=== PATIENT | male | born 1935 | race Caucasian/White ===

== ENCOUNTER 2017-06-14 19:58 | Inpatient (IN) ==
[2017-06-14 20:11] LABS: Basophils % 0.1 % (0.1-2.0); Eosinophils # 0.2 K/mm3 (0.0-0.4); Eosinophils % 1.9 % (0.1-12.0); Hematocrit 40.6 % (42.0-52.0); Hemoglobin 13.4 g/dL (14.1-18.0); Lymphocytes # 0.4 K/mm3 (0.7-4.5); Lymphocytes % 3.8 K/mm3 (10-50); Mean Corpuscular HGB Conc 33.1 g/dL (31.8-35.4); Mean Corpuscular Hemoglobin 30.7 pg (27.0-31.2); Mean Corpuscular Volume 92.8 fl (80-94); Mean Platelet Volume 7.9 fl (7.4-10.4); Monocytes # 0.2 K/mm3 (0.1-1.0); Monocytes % 2.1 % (1.7-9.3); Neutrophils # 9.5 K/mm3 (1.8-7.8); Neutrophils % 92.1 % (37.0-80.0); Platelet Count 154 K/mm3 (142-424); Red Blood Count 4.38 M/mm3 (4.60-6.20); Red Cell Distribution Width 14.4 % (11.5-17.5); White Blood Count 10.3 K/mm3 (4.8-10.8)
[2017-06-14 20:18] LABS: Activated Partial Thrombo Time 27.3 seconds (23.6-34.0); INR 1.02 (0.9-1.1)
[2017-06-14 20:25] LABS: Lymphocytes % 3 % (10-50); Monocytes % 2 % (2-9); Neutrophils % 87 % (42-76); Total Cells Counted 100
[2017-06-14 20:26] LABS: RBC Morphology Normal; Rouleaux 1+
[2017-06-14 20:40] LABS: Albumin Level 3.3 gm/dL (3.4-5.0); Albumin/Globulin Ratio 0.8 (1.1-1.8); Anion Gap 14.5 mEq/L (5-15); Bilirubin,Total 0.6 mg/dL (0.2-1.0); Globulin 4.1 gm/dl (1.3-3.2); Potassium 3.5 mmoL/L (3.5-5.1); Total Protein,Serum 7.4 gm/dL (6.4-8.2)
--- NOTE | 2017-06-14 21:14 | Emergency Department Note ---
ED Disposition Clinical Impression: Acute delirium, Renal insufficiency UTI (urinary tract infection) Qualifiers: Urinary tract infection type: site unspecified Hematuria presence: without hematuria Qualified Code(s): N39.0 - Urinary tract infection, site not specified Disposition: Admitted As Inpatient Condition on Discharge: Good Referrals: Viktoria London APRN [Primary Care Provider] - - Critical Care Critical Care Time: No Attestation: On 06/14/17, the high probability of a clinically significant, sudden or life threatening deterioration of the following system(s) required my full and direct attention, intervention and personal management. The time I documented below is in addition to time spent performing reported procedures but includes the following listed in this critical care notation. Medical Decision Making - Medical Records Medical records reviewed: Yes: I reviewed the patient's medical records. Vital Signs: 06/14/17 20:05 Temperature 103.9 F H Temperature Source Rectal Pulse Rate [Right Radial] 147 H Respiratory Rate 22 Blood Pressure [Right Arm] 120/80 Blood Pressure Mean [Right Arm] 93 Blood Pressure Source [Right Arm] Automatic Cuff Blood Pressure Position [Right Arm] Supine 02 Sat by Pulse Oximetry 94 L Oxygen Delivery Method Room Air - Lab Data Lab results reviewed: Yes: I reviewed the patient's lab results. Lab Results 06/14/17 20:00: WBC 10.3, RBC 4.38 L, Hgb 13.4 L, Hct 40.6 L, MCV 92.8, MCH 30.7 , MCHC 33.1, RDW 14.4, Plt Count 154, MPV 7.9, Neut % (Auto) 92.1 H, Lymph % ( Auto) 3.8 L, [place] % (Auto) 2.1, Eos % (Auto) 1.9, Baso % (Auto) 0.1, Neut # ( Auto) 9.5 H, Lymph # (Auto) 0.4 L, [place] # (Auto) 0.2, Eos # (Auto) 0.2, Baso # ( Auto) 0.0, Total Counted 100, Neutrophils % (Manual) 87 H, Band Neutrophils % 8.0, Lymphocytes % (Manual) 3 L, Monocytes % (Manual) 2, Platelet Estimate Normal, RBC Morphology Normal, Rouleaux 1+ 06/14/17 20:00: PT 11.0, INR 1.02, APTT 27.3 06/14/17 20:00: Sodium 136, Potassium 3.5, Chloride 101, Carbon Dioxide 24, Anion Gap 14.5, BUN 21 H, Creatinine 1.52 H, Estimated Creat Clear 43, Estimated GFR 44 L, Est GFR ( Amer) 54 L, Glucose 99, Calcium 9.0, Total Bilirubin 0.6, AST 16, ALT 18, Alkaline Phosphatase 73, Total Creatine Kinase 181, CK-MB (CK-2) 0.7, CK-MB (CK-2) Rel Index 0.4, Troponin I 0.05, Total Protein 7.4, Albumin 3.3 L, Globulin 4.1 H, Albumin/Globulin Ratio 0.8 L 06/14/17 20:00: B-Natriuretic Peptide 355 H 06/14/17 20:17: POC Glucose 92 06/14/17 20:25: Lactic Acid 2.0 06/14/17 20:25: Influenza Type A Ag Negative, Influenza Type B Ag Negative 06/14/17 21:45: Urine Color Yellow, Urine Appearance Cloudy, Urine pH 6.0, Ur Specific [place] >= 1.030, Urine Protein 3+, Urine Glucose (UA) Negative, Urine Ketones Trace, Urine Blood 3+, Urine Nitrate Positive, Urine Bilirubin Negative , Urine Urobilinogen 1.0, Ur Leukocyte Esterase Trace, Urine RBC 20-50, Urine WBC 50-100 Result diagrams: 06/14/17 20:00 06/14/17 20:00 Orders (Tests/Meds): ED MEDICATIONS Generic Name Dose Route Start Last Admin Trade Name Freq PRN Reason Stop Dose Admin Ceftriaxone Sodium 1 gm/ 50 mls @ 100 mls/hr 06/14/17 22:30 Sodium Chloride IV 06/28/17 22:29 Q24H TRI Discontinued Medications Generic Name Dose Route Start Last Admin Trade Name Freq PRN Reason Stop Dose Admin Acetaminophen 650 mg 06/14/17 20:27 06/14/17 20:30 Acetaminophen 325mg Tab PO 06/14/17 20:28 650 mg ONCE ONE Administration ORDERS Category Date Time Status Blood Culture Stat Micro 06/14/17 20:25 Received Urine Culture Stat Micro 06/14/17 21:45 Received - Radiology Data #1 Image(s): Chest Image Reviewed: Yes I reviewed the patient's radiology image Preliminary Findings: Normal/NAD - CT Data CT Scan: Head Time Received: 22:[address] Reviewed: Yes: I have viewed the radiologist's interpretation Preliminary Findings: Normal/NAD - [place] Inquiry Pt receiving controlled substance: No Altered Mental Status HPI - General Chief Complaint: Neuro Symptoms/Deficit Stated Complaint: CVA Time Seen by Provider: 06/14/17 21:13 Mode of Arrival: Wheelchair Source of Information: Patient, Relative, Medical Record Limitations: No Limitations Description of Symptoms (Recalled from ER Triage Doc. by RN): Family reports weakness, slurred speech and confusion. - History of Present Illness HPI narrative: pt with acute onset of change in mental status with no trauma MD complaint: altered mental status Onset (ago): day(s) Timing confirmed by: family member Severity: moderate Consistency of symptoms: waxing and waning Context: recent fever Associated symptoms: difficulty walking - Related Data Home Medications Medication Instructions Recorded Confirmed aspirin 325 mg tablet 325 mg PO QDAY 05/28/17 06/14/17 Cilostazol [Pletal 100mg tablet] 100 mg PO BID 06/14/17 06/14/17 Lisinopril [Prinivil 5mg Tablet] 5 mg PO QDAY 06/14/17 06/14/17 Pravastatin Sodium [Pravachol] 40 mg PO QDAY 06/14/17 06/14/17 Allergies Allergy/AdvReac Type Severity Reaction Status Date / Time No Known Allergies Allergy Verified 06/14/17 20:13 [facility] History I have reviewed the patient's past medical history: Yes Medical History: Reports:: Hyperlipidemia Other Surgeries: Yes: Other (Vasectomy) Amputation: No Fractures: No - *Social History Smoking Status: Current every day smoker Tobacco Type: cigarettes # Packs/Day (cigarettes): 2 Alcohol Intake: never Alcohol Intake Frequency:: 3 or more drinks per day Substance Use Type: denies use Occupational Status: retired Housing: house Household Members: spouse - Psychiatric History Expresses thoughts of harming self/others: None Suicide Plan Description: No Plan *Family Hx:: Heart Attack ROS Obtained: Yes All systems reviewed & no additional complaints - Constitutional Constitutional: Reports fever(s) - Eyes Eyes: Denies change in vision - ENT Ears, Nose, Mouth, and Throat: Denies sore throat - Cardiovascular Cardiovascular: Denies chest pain - Respiratory Respiratory: No chest congestion, No cough - Gastrointestinal Gastrointestingal: Denies: abdominal pain, vomiting - Genitourinary Male Genitourinary: Denies hematuria - Musculoskeletal Musculoskeletal: Denies joint pain - Neurologic Neurologic: Reports as per HPI, Reports confusion, Denies headache(s), Denies seizure-like activity Physical Exam - General General appearance: alert, in no apparent distress - Head Head exam: normocephalic - Eye Eye exam: Present: PERRL, EOMI. Absent: scleral icterus - ENT ENT exam: Present: mucous membranes dry - Neck Neck exam: Present: trachea midline - Respiratory Respiratory exam: Present: normal lung sounds bilaterally. Absent: respiratory distress - Cardiovascular Cardiovascular exam: Present: regular rate, systolic murmur, +S4 - Abdominal Exam Abdominal exam: Present: soft - Extremities Exam Extremities exam: Absent: calf tenderness - Neurological Exam Neurological exam: Present: CN II-XII intact. Absent: reflexes normal - Skin Skin exam: Absent: rash
[2017-06-14 21:55] LABS: Microscopic, Urine URINE MICROSCOPIC (MICROSCOPIC)
[2017-06-14 21:57] LABS: Appearance,Urine CLOUDY (Clear); Blood, Urine 3+ (Negative); Color,Urine YELLOW (Yellow); Glucose,Urine (UA) Negative (Negative); Ketones,Urine TRACE (Negative); Leukocyte Esterase,Urine TRACE (Negative); Protein,Urine 3+ (Negative); Specific Gravity, Urine >= 1.030 (1.005-1.030)
[2017-06-14 22:00] LABS: Bilirubin,Urine Negative (Negative)
[2017-06-14 22:01] LABS: RBC,Urine 20-50 #/hpf (0-3); WBC,Urine 50-100 #/hpf (0-3)
--- NOTE | 2017-06-15 08:35 | Pharmacy Consult Notes ---
[facility] Pharmacy VTE Monitoring - Patient Demographics Admission date: 06/14/17 Report Date: 06/15/17 Time: 08:35 Allergies/Adverse Reactions: Patient Allergies No Known Allergies Allergy (Verified 06/14/17 20:13) Height: 1.75 m Weight: 68.039 kg Patient Problems: Current Active Problems UTI (urinary tract infection) (Acute) Acute delirium (Acute) Renal insufficiency (Acute) - VTE Risk Labs: VTE Related Lab Results Hgb 13.4 g/dL (14.1-18.0) L 06/14/17 20:00 Hct 40.6 % (42.0-52.0) L 06/14/17 20:00 Plt Count 154 K/mm3 (142-424) 06/14/17 20:00 PT 11.0 seconds (9.4-11.8) 06/14/17 20:00 INR 1.02 (0.9-1.1) 06/14/17 20:00 APTT 27.3 seconds (23.6-34.0) 06/14/17 20:00 BUN 21 mg/dL (7-18) H 06/14/17 20:00 Creatinine 1.52 mg/dL (0.70-1.30) H 06/14/17 20:00 Estimated Creat Clear 43 mL/min (0-300) 06/14/17 20:00 VTE Score: 3 VTE Risk Level: Low Risk - Prophylaxis VTE Prophylaxis Ordered?: Yes Types of VTE Prophylaxis: TEDS Knee High Location of Applied Device: Bilateral Lower Extremeties - VTE Diagnosis Confirmed Treatment or plan recommended: Continue Current Treatment
--- NOTE | 2017-06-15 09:16 | History & Physical Report ---
*Admission Date: 06/14/17 *Chief complaint: change mental status *History of present illness: pt was seen in the ed with acute change in mental status and had fever and abn u /a and was admitted for ivf and abx [facility] History I have reviewed the patient's past medical history: Yes Medical History: Reports:: Hyperlipidemia, Hypertension Denies:: Diabetes Mellitus Type 1, Diabetes Mellitus Type 2 Other Medical History: Reports: Cataracts, Sinus Problems Other Surgeries: Yes: EGD, Other (Vasectomy) Amputation: No Fractures: No - *Social History Educational Level: Attended High School Smoking Status: Current every day smoker Tobacco Type: cigarettes # Packs/Day (cigarettes): 2 Alcohol Intake: current Alcohol Intake Frequency:: other Substance Use Type: denies use Occupational Status: retired Housing: house Household Members: spouse - Psychiatric History Expresses thoughts of harming self/others: None Suicide Plan Description: No Plan *Family Hx:: Diabetes, Heart Attack, Hypertension, Stroke Review of Systems - Review of Systems Review of systems:: pertinent systems reviewed and negative unless documented below - Constitutional Reports fever(s) - Eyes Denies change in vision - ENT Denies sore throat - *Cardiovascular Denies chest pain at rest - *Respiratory Denies cough - *Gastrointestinal Denies abdominal pain - *Genitourinary Denies blood in urine - *Musculoskeletal Denies joint pain - Integumentary/Breasts Denies rash - *Neurologic Reports confusion, Denies headache(s), Denies seizure-like activity - Psychiatric Reports confusion Meds Home Medications Medication Instructions Recorded Confirmed Type aspirin 325 mg tablet 325 mg PO QDAY 05/28/17 06/14/17 History Cilostazol [Pletal 100mg tablet] 100 mg PO BID 06/14/17 06/14/17 History Lisinopril [Prinivil 5mg Tablet] 5 mg PO QDAY 06/14/17 06/14/17 History Pravastatin Sodium [Pravachol] 40 mg PO QDAY 06/14/17 06/14/17 History Allergies Allergy/AdvReac Type Severity Reaction Status Date / Time No Known Allergies Allergy Verified 06/14/17 20:13 Exam Vital signs and Labs for Last 24 Hours: Temp Pulse Resp BP Pulse Ox 99.0 F 102 H 18 00/00 97 06/15/17 06:53 06/15/17 07:20 06/15/17 06:53 02/12/18 06:53 06/15/17 07:20 I & O for Last 24 hours: Intake & Output 06/12/17 06/13/17 06/14/17 06/15/17 11:59 11:59 11:59 11:59 Weight 150 lb - Constitutional no acute distress - *Routine HEENT Exam Head: Present: normocephalic Eye: Present: EOMI, PERRL ENT: Present: mucous membranes dry - *Routine Neck Exam Present: supple - *Routine Respiratory Exam Present: decreased breath sounds - *Routine Cardiovascular Exam Present: RRR, murmur - *Routine Abdominal Exam Present: soft - *Routine Extremities Exam Present: full ROM - *Routine Skin Exam Present: intact - *Routine Neurological Exam Present: alert, CN II-XII intact, altered mental status - Routine Psychiatric Exam Present: unable to assess Assessment and Plan (1) UTI (urinary tract infection) Current visit: Yes Status: Acute Qualifiers: Urinary tract infection type: site unspecified Hematuria presence: without hematuria Qualified Code(s): N39.0 - Urinary tract infection, site not specified Category: Medical Code(s): N39.0 - Urinary tract infection, site not specified (2) Acute delirium Current visit: Yes Status: Acute Category: Medical Code(s): R41.0 - Disorientation, unspecified (3) Renal insufficiency Current visit: Yes Status: Acute Category: Medical Code(s): N28.9 - Disorder of kidney and ureter, unspecified
[2017-06-16 06:01] LABS: Basophils % 0.1 % (0.1-2.0); Eosinophils # 0.1 K/mm3 (0.0-0.4); Eosinophils % 1.3 % (0.1-12.0); Hematocrit 34.4 % (42.0-52.0); Hemoglobin 11.4 g/dL (14.1-18.0); Lymphocytes % 13.6 K/mm3 (10-50); Mean Corpuscular HGB Conc 33.1 g/dL (31.8-35.4); Mean Corpuscular Hemoglobin 31.3 pg (27.0-31.2); Mean Corpuscular Volume 94.4 fl (80-94); Mean Platelet Volume 7.7 fl (7.4-10.4); Monocytes # 0.4 K/mm3 (0.1-1.0); Monocytes % 5.5 % (1.7-9.3); Neutrophils # 5.7 K/mm3 (1.8-7.8); Neutrophils % 79.4 % (37.0-80.0); Platelet Count 113 K/mm3 (142-424); Red Blood Count 3.64 M/mm3 (4.60-6.20); Red Cell Distribution Width 14.3 % (11.5-17.5); White Blood Count 7.1 K/mm3 (4.8-10.8)
[2017-06-16 06:08] LABS: Anion Gap 13.5 mEq/L (5-15); Potassium 3.5 mmoL/L (3.5-5.1)
--- NOTE | 2017-06-16 09:18 | Progress Note ---
Internal Medicine - PN: Subj *Date: 06/16/17 *Time: 09:16 Interval history: doing better and on card drip Exam Vital signs and Labs for Last 24 Hours: Temp Pulse Resp BP Pulse Ox 98.3 F 76 22 121/71 96 06/16/17 04:14 06/16/17 06:15 06/16/17 06:15 06/16/17 06:15 06/16/17 06:15 Laboratory Results - last 24 hr 06/16/17 05:30: WBC 7.1 D, RBC 3.64 L, Hgb 11.4 L, Hct 34.4 L, MCV 94.4 H, MCH 31.3 H, MCHC 33.1, RDW 14.3, Plt Count 113 L D, MPV 7.7, Neut % (Auto) 79.4, Lymph % (Auto) 13.6, [place] % (Auto) 5.5, Eos % (Auto) 1.3, Baso % (Auto) 0.1, Neut # (Auto) 5.7, Lymph # (Auto) 1.0, [place] # (Auto) 0.4, Eos # (Auto) 0.1, Baso # (Auto) 0.0 06/16/17 05:30: Sodium 139, Potassium 3.5, Chloride 104, Carbon Dioxide 25, Anion Gap 13.5, BUN 20 H, Creatinine 1.21 D, Estimated Creat Clear 46, Estimated GFR 58 L, Est GFR ( Amer) 70 D, Glucose 118 H I & O for Last 24 hours: Intake & Output 06/13/17 06/14/17 06/15/17 06/16/17 11:59 11:59 11:59 11:59 Intake Total 1892 / 1892 Output Total 600 / 600 Balance 1292 / 1292 Weight 150 lb 150 lb - Constitutional no acute distress - *Routine HEENT Exam Head: Present: normocephalic Eye: Present: EOMI, PERRL ENT: Present: mucous membranes dry - *Routine Neck Exam Present: supple - *Routine Respiratory Exam Present: CTA bilaterally - *Routine Cardiovascular Exam Present: murmur, irregular rhythm - *Routine Abdominal Exam Present: soft - *Routine Extremities Exam Absent: calf tenderness - *Routine Skin Exam Present: intact - *Routine Neurological Exam Present: alert, CN II-XII intact - Routine Psychiatric Exam Present: normal affect Assessment and Plan (1) UTI (urinary tract infection) Current visit: Yes Status: Acute Qualifiers: Urinary tract infection type: site unspecified Hematuria presence: without hematuria Qualified Code(s): N39.0 - Urinary tract infection, site not specified Category: Medical Code(s): N39.0 - Urinary tract infection, site not specified (2) Acute delirium Current visit: Yes Status: Acute Category: Medical Code(s): R41.0 - Disorientation, unspecified (3) Renal insufficiency Current visit: Yes Status: Acute Category: Medical Code(s): N28.9 - Disorder of kidney and ureter, unspecified
[2017-06-16 10:00] LABS: T4 (Thyroxine) 6.9 ug/dl (4.7-13.3); Thyroid Stimulating Hormone 2.61 uIU/ml (0.358-3.740)
--- NOTE | 2017-06-17 06:59 | Cardiology Report ---
PROCEDURE: 2-D M-mode and color Doppler study INDICATIONS FOR THE TEST: Chest pain COPDX Heart Murmur Tobacco SmokingX Palpitations Fatigue Syncope Edema HypertensionXDiabetes Mellitus Rheumatic Fever SOB DOEXObesity Hyperlipidemia Family History HD Additional History PATIENT INFORMATION HEIGHT: 69 WEIGHT:150 GENDER: Male B/P:134/79 2-D/M-MODE INTERPRETATION: 2-D MEASUREMENTS OBSERVED VALUES IN CMS Right Ventricular Dimension (RVDd) 1.7 Interventricular Septum (Thickness)(IVsd) 1.0 Left Ventricular Internal Dimensions(LVIDd) 5.5 Left Ventricular Posterior Wall (Thickness)(LVPWd) .9 Aortic Root 3.0 Aortic Cusp Separation Left Atrial Dimensions (LAD) 3.6 2D 1. Left atrium is mildly enlarged, left ventricle is normal size, there is mild qualitative concentric left ventricular hypertrophy, visually estimated ejection fraction 55% with no obvious regional wall motion abnormality. 2. The right atrium and right ventricle are mildly enlarged with normal contractility. 3. The aortic valve is minimally thickened and fibrosed. 4. The mitral and tricuspid valve leaflets are thickened. 5. The valve is poorly visualized. 6. No significant pericardial effusion noted. DOPPLER INTERROGATION: Doppler interrogation of the aortic, mitral and tricuspid valvular presence of mild mitral and tricuspid regurgitation, calculated right ventricular systolic pressure is 33 mmHg, diastolic parameters are inconclusive. CONCLUSION: 1. Mildly enlarged left atrium, normal left ventricular size, mild concentric left ventricular hypertrophy, visually estimated ejection fraction 55% with no obvious regional wall motion abnormality, diastolic parameters are inconclusive. 2. Mild mitral and tricuspid regurgitation, calculated right ventricular systolic pressure is 33 mmHg 3. No significant pericardial effusion noted.
--- NOTE | 2017-06-17 10:21 | Discharge Summary ---
General - General Admission date: 06/14/17 Discharge date: 06/17/17 HPI HPI: pt was seen in the ed with acute change in mental status and had fever and abn u /a and was admitted for ivf and abx Objective Vital signs: Temp Pulse Resp BP Pulse Ox 98.8 F 69 22 142/65 96 06/17/17 07:49 06/17/17 07:49 06/17/17 07:49 06/17/17 07:49 06/17/17 07:49 no acute distress - *Routine HEENT Exam Head: Present: normocephalic Eye: Present: EOMI, PERRL ENT: Present: mucous membranes dry - *Routine Neck Exam Absent: JVD - *Routine Respiratory Exam Present: rhonchi. Absent: respiratory distress - *Routine Cardiovascular Exam Present: murmur, S4, irregular rhythm - *Routine Abdominal Exam Present: soft - *Routine Extremities Exam Absent: calf tenderness - *Routine Skin Exam Present: intact. Absent: rash - *Routine Neurological Exam Present: oriented X3, CN II-XII intact has chronic changes to hands - Routine Psychiatric Exam Absent: good judgment Hospital Course Hospital Course: pt did well with ivf and abx and organism was ided and had irreg ht rate in hospital- seen by [id number] white male with history of tobacco use, COPD, hypertension and hyperlipidemia was admitted for urinary tract infection. During his hospital stay he has had recurrent episodes of tachyarrhythmias with the concern that he is having multifocal atrial tachycardia versus atrial fibrillation. Patient is on a Cardizem drip at 5 mL's per hour and is controlled rate. Telemetry strips reveal what appear to be wandering atrial pacemaker and multifocal atrial tachycardia. Review of EKGs with Dr. Hood shows what appears to be multifocal atrial tachycardia. Patient denies any chest pain, pressure or tightness. He denies any history of myocardial infarction. 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 He does take an aspirin daily. Radiology consulted for evaluation and recommendations. Patient admits to having problems with his balance and falling. Does ambulate with a walker. pears the patient has multifocal atrial tachycardia/wandering atrial pacemaker. Will convert the Cardizem drip to Cardizem p.o. today but would prefer to use bisoprolol 5 mg daily for control once patient's respiratory wheezing has improved. Echocardiogram shows preserved ejection fraction without significant valve disease. 2. No further cardiac workup at this time. 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 Status: Acute Discharge Plan - Patient Discharge Instructions ACTIVITY: Continue current activity DIET: continue same diet - Follow up Plan Disposition: Home, Self-Skilled Nursing Medications: Home Medications Medication Instructions Recorded Confirmed Type aspirin 325 mg tablet 325 mg PO DAILY 05/28/17 06/15/17 History Cilostazol [Pletal 100mg tablet] 100 mg PO BID 06/14/17 06/14/17 History Lisinopril [Prinivil 5mg Tablet] 5 mg PO DAILY 06/14/17 06/15/17 History Pravastatin Sodium [Pravachol] 40 mg PO DAILY 06/14/17 06/15/17 History Prescriptions/Medication Reconciliation: New cephALEXin [Keflex 500mg Cap] 500 mg PO TID #30 cap Nicotine [Nicoderm 21mg/24hr patch] 21 mg TD DAILYP PRN #30 patch.td24 PRN Reason: Nicotine Cravings Bisoprolol Fumarate [Zebeta 5mg tablet] 0 mg PO DAILY #30 tab Continue aspirin 325 mg tablet 325 mg PO DAILY Cilostazol [Pletal 100mg tablet] 100 mg PO BID Pravastatin Sodium [Pravachol] 40 mg PO DAILY Lisinopril [Prinivil 5mg Tablet] 5 mg PO DAILY
--- NOTE | 2017-07-16 09:48 | Consult Report ---
History of Present Illness Consult date: 06/16/17 Requesting physician: aLz Franz Chief complaint: Consulted for evaluation of tachycardia History of present illness: 81-year-old white male with history of tobacco use, COPD, hypertension and hyperlipidemia was admitted for urinary tract infection. During his hospital stay he has had recurrent episodes of tachyarrhythmias with the concern that he is having multifocal atrial tachycardia versus atrial fibrillation. Patient is on a Cardizem drip at 5 mL's per hour and is controlled rate. Telemetry strips reveal what appear to be wandering atrial pacemaker and multifocal atrial tachycardia. Review of EKGs with Dr. Hood shows what appears to be multifocal atrial tachycardia. Patient denies any chest pain, pressure or tightness. He denies any history of myocardial infarction. 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 He does take an aspirin daily. Radiology consulted for evaluation and recommendations. Patient admits to having problems with his balance and falling. Does ambulate with a walker. [facility] History Medical History: Reports:: Chronic Obstructive Pulmonary Disease (COPD), Hyperlipidemia, Hypertension Denies:: Diabetes Mellitus Type 1, Diabetes Mellitus Type 2 Other Medical History: Reports: Cataracts, Sinus Problems Other Surgeries: Yes: EGD, Other (Vasectomy) Amputation: No Fractures: No - *Social History Educational Level: Attended High School Smoking Status: Current every day smoker Tobacco Type: cigarettes # Packs/Day (cigarettes): 2 Alcohol Intake: current Alcohol Intake Frequency:: other Substance Use Type: denies use Occupational Status: retired Housing: house Household Members: spouse - Psychiatric History Expresses thoughts of harming self/others: None Suicide Plan Description: No Plan *Family Hx:: Diabetes, Heart Attack, Hypertension, Stroke Meds Home Medications Medication Instructions Recorded Confirmed Type aspirin 325 mg tablet 325 mg PO DAILY 05/28/17 06/15/17 History Cilostazol [Pletal 100mg tablet] 100 mg PO BID 06/14/17 06/14/17 History Lisinopril [Prinivil 5mg Tablet] 5 mg PO DAILY 06/14/17 06/15/17 History Pravastatin Sodium [Pravachol] 40 mg PO DAILY 06/14/17 06/15/17 History Allergies Allergy/AdvReac Type Severity Reaction Status Date / Time No Known Allergies Allergy Verified 06/14/17 20:13 Review of Systems - *Cardiovascular Reports fast heart rate - *Respiratory Reports cough, Reports shortness of breath, Reports shortness of breath with activity - *Neurologic Reports confusion, Denies headache(s), Denies seizure-like activity Exam Vital signs and Labs for Last 24 Hours: Temp Pulse Resp BP Pulse Ox 98.4 F 73 20 132/69 93 L 06/16/17 08:00 06/16/17 08:45 06/16/17 08:00 06/16/17 08:00 06/16/17 08:45 Laboratory Results - last 24 hr 06/16/17 05:30: WBC 7.1 D, RBC 3.64 L, Hgb 11.4 L, Hct 34.4 L, MCV 94.4 H, MCH 31.3 H, MCHC 33.1, RDW 14.3, Plt Count 113 L D, MPV 7.7, Neut % (Auto) 79.4, Lymph % (Auto) 13.6, [place] % (Auto) 5.5, Eos % (Auto) 1.3, Baso % (Auto) 0.1, Neut # (Auto) 5.7, Lymph # (Auto) 1.0, [place] # (Auto) 0.4, Eos # (Auto) 0.1, Baso # (Auto) 0.0 06/16/17 05:30: Sodium 139, Potassium 3.5, Chloride 104, Carbon Dioxide 25, Anion Gap 13.5, BUN 20 H, Creatinine 1.21 D, Estimated Creat Clear 46, Estimated GFR 58 L, Est GFR ( Amer) 70 D, Glucose 118 H 06/16/17 05:30: TSH 2.61, Thyroxine (T4) 6.9 I & O for Last 24 hours: Intake & Output 06/13/17 06/14/17 06/15/17 06/16/17 11:59 11:59 11:59 11:59 Intake Total 1892 / 1892 Output Total 600 / 600 Balance 1292 / 1292 Weight 150 lb 150 lb - *Routine Neck Exam Absent: JVD, carotid bruit - *Routine Respiratory Exam Present: rhonchi, wheezes - *Routine Cardiovascular Exam Present: RRR. Absent: murmur, gallop - *Routine Extremities Exam Absent: edema - *Routine Neurological Exam Present: moving all extremities Assessment and Plan (1) UTI (urinary tract infection) Current visit: Yes Status: Acute Qualifiers: Urinary tract infection type: site unspecified Hematuria presence: without hematuria Qualified Code(s): N39.0 - Urinary tract infection, site not specified Category: Medical Code(s): N39.0 - Urinary tract infection, site not specified (2) Acute delirium Current visit: Yes Status: Acute Category: Medical Code(s): R41.0 - Disorientation, unspecified (3) Renal insufficiency Current visit: Yes Status: Acute Category: Medical Code(s): N28.9 - Disorder of kidney and ureter, unspecified (4) Wandering atrial pacemaker Current visit: Yes Status: Acute Category: Medical Code(s): I49.8 - Other specified cardiac arrhythmias (5) 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 Appears the patient has multifocal atrial tachycardia/wandering atrial pacemaker. Will convert the Cardizem drip to Cardizem p.o. today but would prefer to use bisoprolol 5 mg daily for control once patient's respiratory wheezing has improved. Echocardiogram shows preserved ejection fraction without significant valve disease. 2. No further cardiac workup at this time.
== END 2017-06-17 11:25 | disposition home or self-care (01) ==
LOC: ICU 19:58 → ER 19:58 → OBSVTOIN 06-15 06:50 → ICU 06-15 06:53 → 2ND 06-16 16:02
PROVIDERS: ADMIT Emergency Medicine; ATTEND Emergency Medicine

== ENCOUNTER → 2018-09-03 16:36 | Outpatient (CLI) | payer MEDICARE, SELFPAY ==
[2018-09-03 17:07] LABS: Basophils % 0.3 % (0.1-2.0); Eosinophils # 0.1 K/mm3 (0.0-0.4); Eosinophils % 1.5 % (0.1-12.0); Hematocrit 43.6 % (42.0-52.0); Hemoglobin 14.6 g/dL (14.1-18.0); Lymphocytes # 1.6 K/mm3 (0.7-4.5); Lymphocytes % 29.6 % (10-50); Mean Corpuscular HGB Conc 33.5 g/dL (31.8-35.4); Mean Corpuscular Hemoglobin 31.2 pg (27.0-31.2); Mean Corpuscular Volume 93.2 fl (80-94); Monocytes # 0.3 K/mm3 (0.1-1.0); Neutrophils # 3.4 K/mm3 (1.8-7.8); Neutrophils % 62.5 % (37.0-80.0); Platelet Count 169 K/mm3 (142-424); Red Blood Count 4.68 M/mm3 (4.60-6.20); Red Cell Distribution Width 14.3 % (11.5-17.5); White Blood Count 5.5 K/mm3 (4.8-10.8)
[2018-09-03 18:23] LABS: Alanine Aminotransferase 16 U/L (12-78); Albumin Level 4.1 gm/dL (3.4-5.0); Alkaline Phosphatase 84 U/L (46-116); Anion Gap 11.4 mEq/L (5-15); Aspartate Amino Transferase 9 U/L (15-37); Bilirubin,Total 0.5 mg/dL (0.2-1.0); Blood Urea Nitrogen 19 mg/dL (7-18); Calcium 9.4 mg/dL (8.5-10.1); Carbon Dioxide 29 mmol/L (21.0-32.0); Chloride 102 mmol/L (98-107); Chol/HDL Ratio 3.5 (1-3.5); Cholesterol 169 mg/dL (140-200); Creatinine,Serum 1.12 mg/dL (0.70-1.30); Estimated Glomerular Filt Rate 63 ml/min (>60); Free T4 (Free Thyroxine) 0.98 ng/dl (0.76-1.46); GFR (African American) 76 ML/MIN (>60); Globulin 4.1 gm/dl (1.3-3.2); Glucose 74 mg/dL (74-106); HDL Cholesterol 48 mg/dL (27-67); LDL Cholesterol 108 mg/dL (0-130); Potassium 4.4 mmoL/L (3.5-5.1); Sodium 138 mmol/L (136-145); Thyroid Stimulating Hormone 2.98 uIU/ml (0.358-3.740); Total Protein,Serum 8.2 gm/dL (6.4-8.2); Triglycerides 64 mg/dL (30-200); VLDL Cholesterol 13 mg/dL (0-40)
[2018-09-06 13:07] LABS: Vitamin D 25 Hydroxy 25.8 ng/mL (30.0-100.0)
== END ==
PROVIDERS: Visit Provider Emergency Medicine
DX: I10 Essential (primary) hypertension (principal); E55.9 Vitamin D deficiency, unspecified
CPT/HCPCS: 80053; 80061; 82652; 84439; 84443; 85025

== ENCOUNTER → 2019-09-05 17:10 | Outpatient (CLI) | payer MEDICARE, SELFPAY ==
[2019-09-05 17:43] LABS: Basophils # 0.1 K/mm3 (0-0.2); Basophils % 1.4 % (0.1-2.0); Eosinophils # 0.1 K/mm3 (0.0-0.4); Eosinophils % 1.2 % (0.1-12.0); Hematocrit 41.9 % (42.0-52.0); Hemoglobin 13.4 g/dL (14.1-18.0); Lymphocytes # 1.5 K/mm3 (0.7-4.5); Lymphocytes % 31.7 % (10-50); Mean Corpuscular Hemoglobin 30.1 pg (27.0-31.2); Mean Corpuscular Volume 94.1 fl (80-94); Mean Platelet Volume 8.6 fl (7.4-10.4); Monocytes # 0.3 K/mm3 (0.1-1.0); Monocytes % 6.8 % (1.7-9.3); Neutrophils # 2.7 K/mm3 (1.8-7.8); Neutrophils % 58.9 % (37.0-80.0); Platelet Count 200 K/mm3 (142-424); Red Blood Count 4.45 M/mm3 (4.60-6.20); Red Cell Distribution Width 14.9 % (11.5-17.5); White Blood Count 4.6 K/mm3 (4.8-10.8)
[2019-09-05 17:51] LABS: Chloride 101 mmol/L (98-107)
[2019-09-05 17:52] LABS: Potassium 4.9 mmoL/L (3.5-5.1); Sodium 137 mmol/L (136-145)
[2019-09-05 17:54] LABS: Alanine Aminotransferase 7 U/L (12-78); Alkaline Phosphatase 79 U/L (38-126); Aspartate Amino Transferase 18 U/L (17-59); Bilirubin,Total 0.5 mg/dl (0.2-1.3); Blood Urea Nitrogen 15 mg/dl (9-20); Estimated Glomerular Filt Rate 58 ml/min (>60); GFR (African American) 70 ML/MIN (>60)
[2019-09-05 17:55] LABS: Albumin Level 4.2 g/dl (3.5-5.0); Albumin/Globulin Ratio 1.2 (1.1-1.8); Anion Gap 13.9 mEq/L (5-15); Calcium 9.7 mg/dl (8.4-10.2); Carbon Dioxide 27 mmol/L (22.0-30.0); Chol/HDL Ratio 2.8 (1-3.5); Cholesterol 182 mg/dl (140-200); Globulin 3.4 g/dL (1.3-3.2); Glucose 101 mg/dl (74-100); HDL Cholesterol 65 mg/dl (40-60); Total Protein,Serum 7.6 g/dl (6.3-8.2); Triglycerides 81 mg/dl (30-150); VLDL Cholesterol 16 mg/dL (0-40)
[2019-09-05 18:06] LABS: Direct LDL Cholesterol 120.02 mg/dL (100-129)
[2019-09-05 18:12] LABS: Free T4 (Free Thyroxine) 1.26 ng/dl (0.78-2.19)
[2019-09-05 18:25] LABS: Thyroid Stimulating Hormone 2.83 uIU/mL (0.465-4.68)
== END ==
PROVIDERS: Visit Provider Emergency Medicine
DX: R41.0 Disorientation, unspecified (principal); R42 Dizziness and giddiness; L40.9 Psoriasis, unspecified; E55.9 Vitamin D deficiency, unspecified
CPT/HCPCS: 80053; 80061; 82652; 84439; 84443; 85025

== ENCOUNTER 2020-02-11 15:45 | Observation (INO) | payer MEDICARE, SELFPAY ==
[2020-02-11] VITALS (8 sets, daily range): BP systolic 105–146; BP diastolic 47–84; PULSE 81–120; RESP 20–32; TEMP 37–38.6; O2SAT 93–100; BMI 21.6; BMI 21.7
--- NOTE | 2020-02-11 | ECG_ITS ---
APPROVED REPORT Exam: Resting ECG HR:97 bpm ECG Measurements Heart Rate 97 AXES QRSd 86 QRS 66 QT 368 T 20 QTc 467 Conclusion Atrial fibrillation with premature ventricular or aberrantly conducted complexes Abnormal ECG Electronically signed by : Luís Medina, 02/12/2020 14:20:52
--- NOTE | 2020-02-11 15:47 | PC.NURSE ---
UBALDO CROCKER at
--- NOTE | 2020-02-11 15:49 | CT_ITS ---
PROCEDURE: CT HEAD/BRAIN WO CON . Referring Doctor: Laz Vegas Patient Age:84Y CLINICAL INDICATION: AMS Altered mental status found confused blood right nostril COMPARISON: CT HDWO CT HEAD WITHOUT CONTRAST from 09/10/[address] HEAD WITHOUT CONTRAST from 09/11/[address] head/brain wo con from 06/14/2017 TECHNIQUE: No IV contrast. With this patient uncooperative and unable to lay appropriately within the scanner helical axial images were utilized with subsequent reconstruction sagittal and coronal images performed on CT all CT scans at the facility use one or more dose reduction, viz: automated exposure control, ma/kV adjustment per patient size (including targeted exams where dose is matched to indication, i.e. head), or iterative reconstruction technique. FINDINGS: No acute intracranial findings. The there is prominent cerebral atrophy most pronounced at the left cerebral hemisphere with this the left sylvian fissure is notably more prominent than the left but this appears stable since 2018, longstanding feature.. With the diffuse cerebral atrophy there also fairly generous CFS space overlying the cerebral hemispheres anteriorly particularly here on the left. There are chronic small-vessel white matter ischemic gliotic changes again seen at the cerebral hemisphere. These are most evident on left periventricular region with tiny lacunar infarct foci overlying the body left lateral ventricle. Slight additional asymmetric dilatation left lateral ventricle also reflects a greater atrophy left cerebral hemisphere . Prominent calcified choroid bilaterally unchanged at posterior lateral ventricles Overall there has been no significant change since previous studies. No intracranial hemorrhage. No new territorial infarct no hydrocephalus.. basal cisterns appear clear and satisfactory. No mass or midline shift nor mass effect. No additional subdural or extra-axial fluid collection is evident. Posterior fossa satisfactory. Vertebral basilar calcification along with calcification of the carotid siphons reflects underlying atherosclerotic disease as well Skull appears intact although the very posterior most margin the skull was not included on today's images Nomastoid effusions. Mastoid air cells are well developed and clear. Middle ear clear. IAC's symmetric. Opacification of the right maxillary sinus-change since prior 2018 study. Question may be some minimal thinning and medial bulging at medial wall right maxillary sinus-abutting the middle turbinate but difficult to determine on this tilted distorted image-. No clear osseous destruction. However patient may benefit from a CT sinus series study when can be more cooperative/and stable. Particularly given history of blood from or the nose but There is also opacification of numerous anterior and superior ethmoid air cells, suggest ethmoid sinusitis. This process extends into the junction with right frontal sinus scant mucosal thickening right frontal sinus. Sphenoid sinuses clear bilaterally. The left frontal, ethmoid, sphenoid and maxillary sinuses are clear the mastoid air cells appear well developed and clear. Cerumen at the external canal bilaterally. Middle ear and IAC's unremarkable.. IMPRESSION: 1..No acute intracranial findings 2..No significant new findings at brain vs [address] head . Diffuse cerebral atrophy of most pronounced left cerebral hemisphere again noted. . Chronic small vessel deep white-matter ischemic gliotic changes again noted, along with tiny lacunar infarcts left periventricular region. 3...Paranasal sinus findings in disease on right, new findings versus 2018 CT: . Opacificati
--- NOTE | 2020-02-11 15:49 | XR_ITS ---
PROCEDURE: XR CHEST PORTABLE Referring Doctor: Laz Vegas Patient Age:84Y CLINICAL HISTORY: fever COMPARISON: CR CXR1 CHEST-PORTABLE from 09/10/2012 CR CXR1VP XR chest portable from 06/14/2017 FINDINGS: AP portable upright chest performed today is compared to most recent June 2017 CXR but there is slight coarsening markings seen bilaterally which appears overall similar to the June 2017 study. This is slightly more evident on the right and left chest as seen before some of this may reflect some slight rotation of today's chest film as well.. Hyperexpansion seems to be slightly more pronounced at the left upper lobe and apex but see no convincing acute infiltrate. Pulmonary vascularity appears normal to upper normal and there is of borderline mild cardiomegaly. As seen on previous study there is some minimal density in the retrocardiac region which seems to be due to the tortuous descending aorta and likely a small hiatal hernia a here.. The left elda is more generous in slightly more focally prominent than previous CXR but again this may be projectional. I would encourage a follow-up PA and lateral chest follow-up with patient stable-suggest performing immediately after carbonated beverage (the cell which may help distend/outline possible small hiatal hernia).. This followup better evaluate the more generous appearing left elda better visualize the right elda and other features but. No pleural effusion the no pneumothorax. Chest wall unremarkable on this portable AP exam IMPRESSION: Left elda is more generous and focally prominent than previous studies-but this may merely be projectional. Would suggest a follow-up PA and lateral chest following carbonated beverage to further evaluate this as well as other features (suspected small hiatal hernia may contribute to the retrocardiac density) Slight coarsening markings bilaterally, most evident at throughout right chest-appear similar to previous 2018 CXR. No definite acute infiltrate Upper normal pulmonary vascularity and borderline cardiomegaly. No pleural effusions. . Dictated by: Cristian Veloz MD 02/11/2020 18:37 Cristian Veloz MD in [place] 02/11/2020 18:37
--- NOTE | 2020-02-11 15:55 | PC.NURSE ---
rad notified of orders on pt
--- NOTE | 2020-02-11 15:56 | HMH.EDFALL ---
ED Disposition Clinical Impression: Sepsis secondary to UTI UTI (urinary tract infection) Qualifiers: Urinary tract infection type: acute cystitis Hematuria presence: with hematuria Qualified Code(s): N30.01 - Acute cystitis with hematuria Disposition: Admitted As Inpatient Condition on Discharge: Serious Referrals: PCP,No [Non-Staff] - - Critical Care Critical Care Time: No Attestation: On 02/11/20, the high probability of a clinically significant, sudden or life threatening deterioration of the following system(s) required my full and direct attention, intervention and personal management. The time I documented below is in addition to time spent performing reported procedures but includes the following listed in this critical care notation. Medical Decision Making - Medical Records Medical records reviewed: Yes: I reviewed the patient's medical records. - [place]ava[place] Inquiry Pt receiving controlled substance: No Vital Signs: 02/11/20 15:45 02/11/20 17:00 Temperature 100.1 F H Temperature Source Oral Pulse Rate [Right Radial] 120 H 86 Respiratory Rate 30 H 30 H Blood Pressure [Right Arm] 146/84 H 131/68 Blood Pressure Mean [Right Arm] 104 89 Blood Pressure Source [Right Arm] Automatic Cuff Automatic Cuff Blood Pressure Position [Right Arm] Sitting Sitting 02 Sat by Pulse Oximetry 93 L 93 L Oxygen Delivery Method Room Air Room Air - Lab Data Lab results reviewed: Yes: I reviewed the patient's lab results. Lab Results 02/11/20 16:26: WBC 6.0, RBC 4.47 L, Hgb 13.4 L, Hct 42.8, MCV 95.9 H, MCH 30.1, MCHC 31.4 L, RDW 15.0, Plt Count 126 L, MPV 7.2 L, Neut % (Auto) 93.0 H, Lymph % (Auto) 4.2 L, [place] % (Auto) 1.1 L, Eos % (Auto) 1.2, Baso % (Auto) 0.6, Neut # (Auto) 5.6, Lymph # (Auto) 0.3 L, [place] # (Auto) 0.1, Eos # (Auto) 0.1, Baso # (Auto) 0.0, Total Counted 100, Neutrophils % (Manual) 88 H, Band Neutrophils % 2.0, Lymphocytes % (Manual) 9 L, Monocytes % (Manual) 1 L, Platelet Estimate Slight decrease, RBC Morphology Normal 02/11/20 16:26: Sodium 139, Potassium 3.3 L, Chloride 103, Carbon Dioxide 30, Anion Gap 9.3, BUN 19, Creatinine 1.60 H, Estimated Creat Clear 31, Estimated GFR 41 L, Est GFR ( Amer) 50 L, Glucose 98, Calcium 9.8, Total Bilirubin 0.9, AST 34, ALT 18, Alkaline Phosphatase 77, Troponin I 0.09 H, Total Protein 7.3, Albumin 4.0, Globulin 3.3 H, Albumin/Globulin Ratio 1.2 02/11/20 16:26: NT-Pro-B Natriuret Pep 4180 H, TSH 2.18 02/11/20 16:26: Lactate 3.1 H 02/11/20 16:26: SARS-CoV-2 IgG Ab (Rapid) Negative, SARS-CoV-2 IgM Ab (Rapid) Negative 02/11/20 16:58: Urine Color Yellow, Urine Appearance Clear, Urine pH 6.5, Ur Specific [place] 1.010, Urine Protein Negative, Urine Glucose (UA) Negative, Urine Ketones Negative, Urine Blood 3+, Urine Nitrate Negative, Urine Bilirubin Negative, Urine Urobilinogen 0.2, Ur Leukocyte Esterase 1+ A, Urine RBC 20-50, Urine WBC 3-5, Ur Squamous Epith Cells Occasional, Urine Bacteria 2+ 02/11/20 16:58: Urine Opiates Screen Negative, Urine Methadone Screen Negative, Ur Barbituates Screen Negative, Ur Phencyclidine Scrn Negative, Ur Amphetamines Screen Negative, U Benzodiazepines Scrn Negative, Urine Cocaine Screen Negative, U Marijuana (THC) Screen Negative 02/11/20 17:12: VBG pH 7.37, VBG pCO2 44.6, VBG pO2 33.1, VBG HCO3 25.3, VBG Total CO2 26.6, VBG O2 Saturation 63.4, VBG Base Excess 0.0 Result diagrams: 02/11/20 16:26 02/11/20 16:26 Orders (Tests/Meds): ED MEDICATIONS Generic Name Dose Route Start Last Admin Trade Name Freq PRN Reason Stop Dose Admin Sodium Chloride 1,000 mls @ 999 mls/hr 02/11/20 17:15 02/11/20 17:06 Sod Chlor 0.9% 1000ml Bag IV 02/11/20 18:15 999 mls/hr .Q1H1M TRI Administration Ceftriaxone Sodium 1 gm/ 50 mls @ 100 mls/hr 02/11/20 17:30 02/11/20 17:25 Sodium Chloride IV 02/25/20 17:29 100 mls/hr Q24H TRI Administration Protocol Discontinued Medications Generic Name Dose Route Start Last Admin Trade N
--- NOTE | 2020-02-11 16:01 | PC.NURSE ---
pt to radiology
--- NOTE | 2020-02-11 16:17 | PC.NURSE ---
pt return from radiology
[2020-02-11 16:41] LABS: Basophils % 0.6 % (0.1-2.0); Eosinophils # 0.1 K/mm3 (0.0-0.4); Eosinophils % 1.2 % (0.1-12.0); Hematocrit 42.8 % (42.0-52.0); Hemoglobin 13.4 g/dL (14.1-18.0); Lymphocytes # 0.3 K/mm3 (0.7-4.5); Lymphocytes % 4.2 % (10-50); Mean Corpuscular HGB Conc 31.4 g/dL (31.8-35.4); Mean Corpuscular Hemoglobin 30.1 pg (27.0-31.2); Mean Corpuscular Volume 95.9 fl (80-94); Mean Platelet Volume 7.2 fl (7.4-10.4); Monocytes # 0.1 K/mm3 (0.1-1.0); Monocytes % 1.1 % (1.7-9.3); Neutrophils # 5.6 K/mm3 (1.8-7.8); Platelet Count 126 K/mm3 (142-424); Red Blood Count 4.47 M/mm3 (4.60-6.20)
[2020-02-11 16:45] LABS: MANUAL DIFFERENTIAL MANUAL DIFFERENTIAL (MANUAL DIFF)
[2020-02-11 16:47] LABS: Chloride 103 mmol/L (98-107); Potassium 3.3 mmoL/L (3.5-5.1); Sodium 139 mmol/L (136-145)
[2020-02-11 16:50] LABS: Alanine Aminotransferase 18 U/L (12-78); Albumin/Globulin Ratio 1.2 (1.1-1.8); Alkaline Phosphatase 77 U/L (38-126); Anion Gap 9.3 mEq/L (5-15); Aspartate Amino Transferase 34 U/L (17-59); Bilirubin,Total 0.9 mg/dl (0.2-1.3); Blood Urea Nitrogen 19 mg/dl (9-20); Calcium 9.8 mg/dl (8.4-10.2); Carbon Dioxide 30 mmol/L (22.0-30.0); Creatinine Clearance Estimated 31 mL/min (50-200); Estimated Glomerular Filt Rate 41 ml/min (>60); GFR (African American) 50 ML/MIN (>60); Globulin 3.3 g/dL (1.3-3.2); Glucose 98 mg/dl (74-100); Total Protein,Serum 7.3 g/dl (6.3-8.2)
[2020-02-11 16:57] LABS: Lactic Acid 3.1 mmol/L (0.7-2.1)
[2020-02-11 17:00] LABS: Lymphocytes % 9 % (10-50); Monocytes % 1 % (2-9); NT Pro Brain Natriuretic Pep. 4180 pg/mL (0-450); Neutrophils % 88 % (42-76); RBC Morphology Normal; Total Cells Counted 100
[2020-02-11 17:01] LABS: Platelet Estimate Slight Decrease
--- NOTE | 2020-02-11 17:01 | PC.NURSE ---
pt soiled in stool upon arrival to ED, bed bath given to pt at this time per myself and NaderRN
[2020-02-11 17:02] LABS: Troponin I 0.09 ng/ml (0.00-0.034)
[2020-02-11 17:05] LABS: Microscopic, Urine URINE MICROSCOPIC (MICROSCOPIC)
--- NOTE | 2020-02-11 17:05 | PC.NURSE ---
notified RT of VBG order
--- NOTE | 2020-02-11 17:05 | PC.NURSE ---
notified ER of SIRS criteria on pt.
[2020-02-11 17:06] LABS: Appearance,Urine CLEAR (Clear); Bilirubin,Urine Negative (Negative); Blood, Urine 3+ (Negative); Color,Urine YELLOW (Yellow); Glucose,Urine (UA) Negative (Negative); Ketones,Urine Negative (Negative); Leukocyte Esterase,Urine 1+ (Negative); Nitrate,Urine Negative (Negative); PH,Urine 6.5 (5.0-8.5); Protein,Urine Negative (Negative); Urobilinogen,Urine 0.2 EU/dl (0.2)
[2020-02-11 17:08] LABS: Coronavirus 19 IgG Antibody Negative (Negative); Coronavirus 19 IgM Antibody Negative (Negative)
[2020-02-11 17:13] LABS: VBG HCO3 25.3 mmol/L (23-30); VBG Oxygen Saturation 63.4 % (50-70); VBG PCO2 44.6 mmol/L (35-51); VBG PH 7.37 mmol/L (7.31-7.41); VBG PO2 33.1 mmol/L (28-40); VBG Total CO2 26.6 mmol/L (23-27)
--- NOTE | 2020-02-11 17:16 | PC.NURSE ---
notified dr roberts that patient meets criteria for sepsis. requested antibiotic therapy. awaiting further orders.
[2020-02-11 17:17] LABS: Bacteria,Urine 2+ /lpf; RBC,Urine 20-50 #/hpf (0-3); Squamous Epithelial Cell,Urine Occasional #/hpf (0-5)
[2020-02-11 17:18] LABS: Barbiturates Screen,Urine Negative ng/ml (<200)
[2020-02-11 17:19] LABS: Amphetamine/Metha Screen,Urine Negative ng/ml (<1000); Benzodiazepines Screen,Urine Negative ng/ml (<200)
[2020-02-11 17:20] LABS: Cannabinoid Screen,Urine Negative ng/ml (<50)
[2020-02-11 17:21] LABS: Thyroid Stimulating Hormone 2.18 uIU/mL (0.465-4.68)
[2020-02-11 17:21] LABS: Cocaine Screen,Urine Negative ng/ml (<300); Methadone Screen,Urine Negative ng/ml (<300)
[2020-02-11 17:22] LABS: Opiate Screen,Urine Negative ng/ml (<300)
[2020-02-11 17:23] LABS: Phencyclidine Screen,Urine Negative ng/ml (<25)
[2020-02-11 18:50] LABS: Reflex Lactic Add Lactic Reflex
--- NOTE | 2020-02-11 19:30 | PC.NURSE ---
skin tear to r knee [id number]
--- NOTE | 2020-02-11 19:46 | PC.NURSE ---
PT WAS BROUGHT TO FLOOR PLEASANTLY CONFUSED, AO TO NAME AND SAYS THAT HE IS AT THE HOSPITAL . SPOUSE IS AT BEDSIDE AT THIS TIME AND ANSWERED ALL ADMISSION QUESTIONS AND CONFIRMED MED REC. AT THIS TIME PT IS ON RA WITH SATS >98%, PT ARRIVED TO FLOOR WITH A SMALL AMOUNT OF BLOODY PENILE DISCHARGE AND THE FORESKIN OF PENIS HAD NOT BEEN RETURNED TO PROPER POSITION, DURING BIO THIS NURSE CLEANED THE GLANS PENIS AND RETURNED THE FORESKIN TO THE PROPER POSITION, PT HAS BEEN PLACED IN HAND MITS AT THIS TIME TO PREVENT HIM FROM PULLING ON CORDS AND KERR TUBING, REPORT GIVEN TO Rachel LUJAN RN AND FINDINGS ADDRESSED.
[2020-02-11 20:07] LABS: Lactic Acid Follow Up (RFLX 1) 2.5 mmol/L (0.7-2.1)
[2020-02-11 20:08] LABS: Troponin I 0.15 ng/ml (0.00-0.034)
[2020-02-11 20:09] LABS: Reflex Lactic (2 hrs) Add Lactic Reflex
[2020-02-11 22:28] LABS: Lactic Acid Follow up (RFLX 2) 2.4 mmol/L (0.7-2.1)
[2020-02-11 22:39] LABS: Troponin I 0.19 ng/ml (0.00-0.034)
[2020-02-12] VITALS (7 sets, daily range): BP systolic 106–134; BP diastolic 50–80; PULSE 60–96; RESP 16–26; TEMP 36.8–37.4; O2SAT 93–97; BMI 22.1
--- NOTE | 2020-02-12 00:24 | PC.NURSE ---
Pt awake and resting in bed at this time. Family remains at bedside. MD consulted early in shift for notification of troponin and for any additional orders. 0.9% NS @ 125 ml/hr ordered and infusing at this time. Tylenol 650 mg po Q6 prn also ordered for fever. F/C draining to bedside with cloudy, dark yellow urine. MD notified of bloody drainage noted when pt arrived to floor after F/C placed in ER. Additional small sanguineous drainage noted at times with small clots around urinary meatus. Crystal care administered as needed. Safety measures in place. Mitts on hands due to pt AMS and trying to pull on tubing and leads. Will continue to monitor.
--- NOTE | 2020-02-12 03:48 | PC.NURSE ---
No acute changes since prior assessment. Pt has slept at intervals this shift. Lungs diminished t/o with expiratory rhonchi to anterior upper lobes. Nonproductive cough noted. F/C draining to bedside with dark, cloudy, yellow urine. Sanguineous drainage from urinary meatus has decreased. BS active.Medications administered per mar. Call light within reach. Safety measures in place. Family remains at bedside. Will continue to monitor.
[2020-02-12 07:14] LABS: Basophils # 0.1 K/mm3 (0-0.2); Basophils % 0.3 % (0.1-2.0); Eosinophils # 0.2 K/mm3 (0.0-0.4); Eosinophils % 1.1 % (0.1-12.0); Hematocrit 36.6 % (42.0-52.0); Lymphocytes # 0.6 K/mm3 (0.7-4.5); Lymphocytes % 3.7 % (10-50); Mean Corpuscular HGB Conc 31.6 g/dL (31.8-35.4); Mean Corpuscular Hemoglobin 30.2 pg (27.0-31.2); Mean Corpuscular Volume 95.7 fl (80-94); Mean Platelet Volume 8.4 fl (7.4-10.4); Monocytes # 0.8 K/mm3 (0.1-1.0); Monocytes % 5.1 % (1.7-9.3); Neutrophils # 14.3 K/mm3 (1.8-7.8); Neutrophils % 89.8 % (37.0-80.0); Platelet Count 96 K/mm3 (142-424); Red Blood Count 3.83 M/mm3 (4.60-6.20); White Blood Count 15.9 K/mm3 (4.8-10.8)
[2020-02-12 07:15] LABS: Hemoglobin 11.6 g/dL (14.1-18.0)
[2020-02-12 07:16] LABS: MANUAL DIFFERENTIAL MANUAL DIFFERENTIAL (MANUAL DIFF)
[2020-02-12 07:23] LABS: Alanine Aminotransferase 17 U/L (12-78); Alkaline Phosphatase 59 U/L (38-126); Aspartate Amino Transferase 56 U/L (17-59); Bilirubin,Total 0.4 mg/dl (0.2-1.3); Blood Urea Nitrogen 26 mg/dl (9-20); Carbon Dioxide 24 mmol/L (22.0-30.0); Chloride 108 mmol/L (98-107); Creatinine Clearance Estimated 35 mL/min (50-200); Estimated Glomerular Filt Rate 41 ml/min (>60); GFR (African American) 50 ML/MIN (>60); Glucose 72 mg/dl (74-100); Sodium 139 mmol/L (136-145)
[2020-02-12 07:26] LABS: Hypochromasia 1+; Lymphocytes % 5 % (10-50); Macrocytosis 1+; Neutrophils % 81 % (42-76); Platelet Estimate Slight Decrease; Total Cells Counted 100
[2020-02-12 07:28] LABS: Calcium 8.5 mg/dl (8.4-10.2)
--- NOTE | 2020-02-12 08:19 | P.CONPHA_ITS ---
[facility] VTE Monitoring - Patient Demographics Admission date: 02/11/20 Report Date: 02/12/20 Time: 08:19 Allergies/Adverse Reactions: Patient Allergies No Known Allergies Allergy (Verified 09/05/19 14:01) Height: 1.8 m Weight: 71.809 kg Patient Problems: Current Active Problems UTI (urinary tract infection) (Acute) Sepsis secondary to UTI (Acute) - VTE Risk Labs: VTE Related Lab Results Hgb 11.6 g/dL (14.1-18.0) L D 02/12/20 06:20 Hct 36.6 % (42.0-52.0) L 02/12/20 06:20 Plt Count 96 K/mm3 (142-424) L 02/12/20 06:20 BUN 26 mg/dl (9-20) H D 02/12/20 06:20 Creatinine 1.60 mg/dl (0.66-1.25) H 02/12/20 06:20 Estimated Creat Clear 35 mL/min (50-200) 02/12/20 06:20 VTE Score: 4 VTE Risk Level: Low Risk - Prophylaxis VTE Prophylaxis Ordered?: Yes Types of VTE Prophylaxis: TEDS Knee High Location of Applied Device: Bilateral Lower Extremeties
--- NOTE | 2020-02-12 08:23 | HMH.PHAINT ---
MEDICATION RECONCILIATION COMPLETED ON PATIENT USING EXTERNAL FILL HISTORY FROM PHARMACY. -LALIT ALVAREZ, JOHNSOND
--- NOTE | 2020-02-12 08:42 | HMH.HP ---
*Admission Date: 02/11/20 *Chief complaint: fall/change in mental status *History of present illness: this pt fell at home with reported change in mental status- he was transported to ed by ems- er EMS report pt family reports pt fell earlier today, they helped him up, pt was not c/o pain. Pt family reported that pt is not acting his normal. Pt speech is pt normal per EMS report. Pt has dried blood noted to R nare. Pt denies presence of pain This is a 84-year-old male that presents via EMS due to altered mental status. Patient apparently had a mechanical fall earlier today however he denied any injury at that time other than the nosebleed. According to EMS patient's family had placed him back in bed. Over the course of the next 2 to 3 hours patient's mentation seems to vary from his baseline as such EMS was called for transport due to altered mental status with possibility of stroke. Upon arrival patient denies any complaints. He denies any injuries. Patient is however unoriented. Speech is slurred however EMS reports family endorses this is his baseline. Patient is alert currently only to person. Further subjective assessment limited given patient's mental status pt was admitted with acute uti [facility] History I have reviewed the patient's past medical history: Yes Medical History: Reports:: Chronic Obstructive Pulmonary Disease (COPD), Hyperlipidemia, Hypertension Denies:: Cancer, Diabetes Mellitus Type 1, Diabetes Mellitus Type 2, MRSA *Have you ever received a pneumonia vaccine?: No *Have you received a flu vaccine this season?: No Other Medical History: Reports: Cataracts, Sinus Problems Other Surgeries: Yes: Colonoscopy, EGD, Other Amputation: No Fractures: No - *Social History Last grade of school completed: 9th or 10th Smoking Status: Current every day smoker Tobacco Type: cigarettes # Packs/Day (cigarettes): 2 Alcohol Intake: never Alcohol Intake Frequency:: 3 or more drinks per day Substance Use Type: denies use *Occupational Status:: retired Housing: house Household Members: spouse *Travel in the last 8 weeks: None Family Hx:: Stroke Review of Systems - Review of Systems Review of systems:: pertinent systems reviewed and negative unless documented below - Constitutional Reports weakness - Eyes Denies change in vision - ENT Denies sore throat - *Cardiovascular Denies chest pain at rest - *Respiratory Denies cough - *Gastrointestinal Denies abdominal pain - *Genitourinary Denies blood in urine - *Musculoskeletal Denies joint pain - Integumentary/Breasts Denies rash - *Neurologic Reports weakness, Denies seizure-like activity - Psychiatric Reports confusion Meds Home Medications Medication Instructions Recorded Confirmed Type aspirin 325 mg tablet 325 mg PO DAILY 05/28/17 02/11/20 History Pravastatin Sodium [Pravachol] 40 mg PO DAILY 02/11/20 02/12/20 History cilostazoL [Pletal 100mg tablet] 100 mg PO BID 02/11/20 02/11/20 History lisinopriL [Lisinopril 5mg 5 mg PO DAILY 02/11/20 02/11/20 History Tablet] Allergies Allergy/AdvReac Type Severity Reaction Status Date / Time No Known Allergies Allergy Verified 09/05/19 14:01 Exam Vital signs and Labs for Last 24 Hours: Temp Pulse Resp BP Pulse Ox 98.2 F 93 H 20 123/62 97 02/12/20 08:00 02/12/20 08:00 02/12/20 08:00 02/12/20 08:00 02/12/20 08:00 Laboratory Results - last 24 hr 02/11/20 16:26: WBC 6.0, RBC 4.47 L, Hgb 13.4 L, Hct 42.8, MCV 95.9 H, MCH 30.1, MCHC 31.4 L, RDW 15.0, Plt Count 126 L, MPV 7.2 L, Neut % (Auto) 93.0 H, Lymph % (Auto) 4.2 L, [place] % (Auto) 1.1 L, Eos % (Auto) 1.2, Baso % (Auto) 0.6, Neut # (Auto) 5.6, Lymph # (Auto) 0.3 L, [place] # (Auto) 0.1, Eos # (Auto) 0.1, Baso # (Auto) 0.0, Total Counted 100, Neutrophils % (Manual) 88 H, Band Neutrophils % 2.0, Lymphocytes % (Manual) 9 L, Monocytes % (Manual) 1 L, Platelet Estimate Slight decrease, RBC Morphology Normal
--- NOTE | 2020-02-12 08:53 | XR_ITS ---
PROCEDURE: XR PELVIS 1-2V Referring Doctor: Laz Franz Patient Age:84Y CLINICAL INDICATION: fall fall yesterday with multiple injuries. Minimal pelvic pain COMPARISON: CT ABDPELW/O CT ABD PELVIS W/O CONTRAST from 08/03/2012 TECHNIQUE: XR Pelvis AP View FINDINGS: AP pelvis radiograph-single view. Osseous pelvis intact with no fracture or dislocation is evident. Hip joint spaces are fairly well maintained with no significant degenerative change. No lytic or blastic change. The SI joints have an unremarkable appearance. . Atherosclerotic calcification most evident at the right external iliac and common femoral artery. Gil catheter in place. Of what is seen at sacrum and posterior pelvis unremarkable IMPRESSION: No acute findings. Osseous pelvis intact. Dictated by: Cristian Veloz MD 02/12/2020 09:56 Cristian Veloz MD in [place] 02/12/2020 09:56
--- NOTE | 2020-02-12 19:45 | PC.NURSE ---
PT HAS BEEN A0*4, ABLE TO ANSWER QUESTIONS FOLLOW COMMANDS, CURRENTLY ON RA, NO C/O SOA, FC IN PLACE DRAINING DARK YELLOW URINE, HAS NO C/O PAIN. APPETITE HAS BEEN DECREASED T/O SHIFT, INCONTINENT OF BOWEL. NO NEEDS AT THIS TIME, WILL CONTINUE TO MONITOR
[2020-02-13] VITALS (7 sets, daily range): BP systolic 148–165; BP diastolic 60–90; PULSE 60–84; RESP 18–20; TEMP 36.7–37.1; O2SAT 95–98; BMI 22.0
--- NOTE | 2020-02-13 02:43 | PC.NURSE ---
Pt is alert and oriented x4. Pt noted restless this shift. PERRLA. Bilateral hand casing grader noted equal and strong. Cap refill < 3 seconds. Speech noted garbled. Bilateral lung sounds noted clear t/o upon auscultation. Tolerated RA well with no c/o SOA. Abdomen noted soft, round, and non-tender upon palpation. Remains incontinent of b&b. Brief remains in place, SM BM noted this shift. FC site noted c/d/i, no redness noted to penis. Urine noted cloudy and tea colored. Refused PM snack. Refused teds. VSS. Remains safe with bed alarm intact. Call light within reach. Will continue to monitor.
--- NOTE | 2020-02-13 04:11 | PC.NURSE ---
Pt noted with confusion this am. States he is at [address] and upset that things are moving around in his room. To note nothing has been moved this shift in pt's room except bedside table beside his bed. This RN attempted to re-orient pt at this time, stating he is at [facility] for altered mental status post fall. Pt denies having a fall at home prior to admission.
--- NOTE | 2020-02-13 07:36 | PC.NURSE ---
Pt continues to be disoriented this am. States he is leaving and attempting to get OOB on his own. Bed alarm remains on and functioning. This RN tried calling with no answer. Will continue to monitor.
[2020-02-13 08:44] LABS: Basophils % 0.1 % (0.1-2.0); Eosinophils # 0.1 K/mm3 (0.0-0.4); Eosinophils % 0.9 % (0.1-12.0); Hemoglobin 11.9 g/dL (14.1-18.0); Lymphocytes # 0.8 K/mm3 (0.7-4.5); Lymphocytes % 5.4 % (10-50); Mean Corpuscular Hemoglobin 30.8 pg (27.0-31.2); Mean Corpuscular Volume 96.2 fl (80-94); Mean Platelet Volume 8.8 fl (7.4-10.4); Monocytes # 0.6 K/mm3 (0.1-1.0); Monocytes % 3.9 % (1.7-9.3); Neutrophils # 12.7 K/mm3 (1.8-7.8); Neutrophils % 89.7 % (37.0-80.0); Platelet Count 81 K/mm3 (142-424); Red Blood Count 3.85 M/mm3 (4.60-6.20); White Blood Count 14.2 K/mm3 (4.8-10.8)
[2020-02-13 08:50] LABS: Chloride 111 mmol/L (98-107)
[2020-02-13 08:51] LABS: Potassium 3.8 mmoL/L (3.5-5.1); Sodium 140 mmol/L (136-145)
[2020-02-13 08:53] LABS: MANUAL DIFFERENTIAL MANUAL DIFFERENTIAL (MANUAL DIFF)
[2020-02-13 08:54] LABS: Anion Gap 10.8 mEq/L (5-15); Blood Urea Nitrogen 27 mg/dl (9-20); Calcium 8.8 mg/dl (8.4-10.2); Carbon Dioxide 22 mmol/L (22.0-30.0); Creatinine Clearance Estimated 50 mL/min (50-200); Estimated Glomerular Filt Rate 64 ml/min (>60); GFR (African American) 77 ML/MIN (>60); Glucose 95 mg/dl (74-100)
[2020-02-13 09:45] LABS: Lymphocytes % 7 % (10-50); Monocytes % 2 % (2-9); Neutrophils % 84 % (42-76); Platelet Estimate Marked Decrease; RBC Morphology Normal; Total Cells Counted 100
--- NOTE | 2020-02-13 10:38 | SW/DCPLANNER ---
Addendum entered by Padmaja Idleyld Park 02/14/20 13:02: [facility] in [place] is able to accept this patient pending precert. Misa Workman at [facility] has stated that she will follow up with me once she hears back from precert. I will inform Stephanie with [facility] that patient has found placement elsewhere. I have also informed patients Delia whom agrees with situation of going to [facility] pending precert. I have informed patients daughter (Tatiana) as well. I will continue to follow up with Noble Tom, patients family and MD. Addendum entered by Padmaja Idleyld Park 02/14/20 10:46: Misa Workman with [facility] has stated that she will begin a precert for this patient. I will call and update patients regarding [facility] in [place] and [facility]. Addendum entered by Padmaja Idleyld Park 02/14/20 09:24: [facility] is out of network. [facility], [facility] and [facility] I have attempted to contact this morning with no answer and voicemails have been left. I have spoke with Stephanie from [facility] in [place] whom has stated she does have male beds and is in network with [facility] C NUNES. Patient information has been faxed to [facility] and [facility]. Also at this time [facility] and [facility] do not have any Medicaid pending beds available. Addendum entered by Padmaja Cuenca 02/13/20 18:07: Family has called back stating that they are willing to look into other facilities: patient information has been faxed to [facility], [facility], [facility] and [facility]. I will follow up with facilities, patient, patients family and MD in the AM. Addendum entered by Padmaja Cuenca 02/13/20 16:21: [facility] and [facility] are NOT in network with this patients insurance. I have explained this to patients and daughter at this time. I have explained to patients that other options would be to explore other counties farther away or home health services. Patient stated that she would rather try to take care of him at home than for him to be so far away. Daughter also stated that she thought patient would be better served at home with home health then further away. Patient does not have Medicaid but I have encouraged to finish (started application but never finished) Medicaid process. I have informed MD of situation as well. I will follow up with MD, patient and patients family tomorrow morning. Addendum entered by Padmaja Cuenca 02/13/20 13:15: Patient and family are agreeable to placement at this time. Family prefer [facility], [facility], [place] or [facility]. At this time [facility] does NOT have any beds. Patient information has been faxed to: [facility] and [facility]. I will keep patient, family and MD up to date. Original Note: I have contacted this patients (Delia) regarding discharge plans. Delia has stated that she would prefer this patient discharge home with home health services. After a lengthy conversation patient stated that she is preparing patient a lunch and then will be up here. Delia stated that she would prefer to speak with patient and myself together regarding discharge plans. I will follow up with Delia and patient this afternoon once is at [facility]. I will discuss discharge options: placement vs home health.
--- NOTE | 2020-02-13 11:10 | HMH.OTEV ---
OT Inpatient Evaluation Rehab OT IP Evaluation Start: 02/13/20 08:31 Freq: ONCE Status: Complete Protocol: Document 02/13/20 11:03 TUSHAR (Rec: 02/13/20 11:10 [id number] Rehab OT IP Assessment Subjective History Pt oriented to self on arrival . Pt agreeable to engage in therapy evaluation. Pt was admitted on 02/11/20 after a fall at home due to UTI and sepsis. Pt has a past medical history of COPD, hyperlipidemia, and HTN. Pt reports he lives at home with his . He claims he is independent with ADLS such as dressing and bathing; however he appears to be a bit confused at times so his information may not be trustworthy. Pt reports his completes all IALD's. Pt does use a walker at home. Subjective Get me that pack of cigarettes over there. Objective Patient Orientation Person Upper Extremity Gross ROM WFL Transfer Training Sit/Stand Transfer Assist Level Minimal x 2 (25% assist) Rehab OT IP prob,goals,plan Problems Date of Evaluation: 02/13/20 OT IP Problems Bed Mobility,Transfers,Gait, Balance,Self care,Safety Rehab Potential Rehab Potential Good Equipment Needs Assistive Devices Rolling / Wheeled Walker Plan OT Plan Frequency Daily Duration LOS Discharge Goals Bed Mobility Ability Standby Assistance Sit to Stand Chair Transfer Ability Minimal x 1 (25% assist) Chair Transfer Ability Minimal x 1 (25% assist) Chair Transfer Technique Sit to/from Ambulatory Chair Transfer Assistive Devices Rolling Walker Feeding Ability Assist with Tray Set Up Lower Body Dressing Ability Assistance X1 Upper Body Dressing Ability Standby Assistance Bathing Ability Assistance x1 Performing Toilet Hygiene Ability Standby Assistance Overall Commode/Toilet Transfer Ability Assistance x1 Commode/Toilet Transfer Technique Sit to/from Ambulatory Discharge Plan OT Discharge Plan Pt would benefit most from short term rehab following hospital stay in order to increase overall functional
--- NOTE | 2020-02-13 11:19 | HMH.PTEV ---
Physical Therapy Evaluation Rehab PT IP Evaluation Start: 02/13/20 08:31 Freq: ONCE Status: Active Protocol: Document 02/13/20 10:35 ANATOLIY (Rec: 02/13/20 11:05 ANATOLIY [id number]) Subjective/History History History This is the initial physical therapy evaluation for Salvatore Vizcaino, a 84 y/o male referred to PT for weakness. Pt. fell while at home with a reported change in mental status. Pt. fell on 02/11/20 and reported to the ED by EMS. The family reported that he was not acting his normal self and sent him via EMS due to the potential of a stroke. Family stated that his slurred speech is baseline. Pt. has a history of COPD and hypertension. Note by Navi Storey, SPT Subjective Subjective Pt. reported that he was unable to walk backwards to be able to reach the chair after ambulating a few feet. Rehab PT IP Eval Objective Appearance Patient Behavior Appropriate,Cooperative, Impulsive Patient Orientation Person,Place,Name,Birthday, Year Difficulty following instructions mild Speech Pattern Baseline Function,Slurred Ambulation Patient Able to Ambulate Yes Ambulation Observation IP General Gait Pattern Observation Trunk Posterior to DANIELLE Ambulation Distance (feet) 3 Ambulation Assistive Device Rolling Walker Ambulation Ability Moderate x 2 (50% assist) Balance Ability to Arise Able, uses arms to help Sitting Balance Steady, safe Standing Balance Steady, wide stance Dynamic Sitting Balance Ability Good Dynamic Standing Balance Ability Fair Transfers Bed Transfer Ability Supervision/Stand by Chair Transfer Ability Supervision/Stand by Sit to Stand Chair Transfer Ability Minimal x 2 (25% assist) MMT All Extremities PT MMT WFL Rehab PT IP prob,goals,plan Problems Date of Evaluation: 02/13/20 PT IP Problems Transfers,Gait,Balance,Self care,Safety Rehab Potential Rehab Potential Fair Equipment Needs Assistive Devices Rolling / Wheeled Walker Plan PT Intervention Plan Transfers,Gait,Balance,
--- NOTE | 2020-02-13 14:41 | HMH.ACPN2 ---
Internal Medicine - PN: Subj *Date: 02/13/20 *Time: 08:30 Interval history: Pt sitting up in chair states doing better and ready to go home. Exam Vital signs and Labs for Last 24 Hours: Temp Pulse Resp BP Pulse Ox 98.7 F 70 19 148/60 H 98 02/13/20 12:00 02/13/20 12:00 02/13/20 12:00 02/13/20 12:00 02/13/20 12:00 Laboratory Results - last 24 hr 02/13/20 08:37: WBC 14.2 H, RBC 3.85 L, Hgb 11.9 L, Hct 37.0 L, MCV 96.2 H, MCH 30.8, MCHC 32.0, RDW 15.0, Plt Count 81 L, MPV 8.8, Neut % (Auto) 89.7 H, Lymph % (Auto) 5.4 L, [place] % (Auto) 3.9, Eos % (Auto) 0.9, Baso % (Auto) 0.1, Neut # (Auto) 12.7 H, Lymph # (Auto) 0.8, [place] # (Auto) 0.6, Eos # (Auto) 0.1, Baso # (Auto) 0.0, Total Counted 100, Neutrophils % (Manual) 84 H, Band Neutrophils % 7.0, Lymphocytes % (Manual) 7 L, Monocytes % (Manual) 2, Platelet Estimate Marked decrease, RBC Morphology Normal 02/13/20 08:37: Sodium 140, Potassium 3.8, Chloride 111 H, Carbon Dioxide 22, Anion Gap 10.8, BUN 27 H, Creatinine 1.10 D, Estimated Creat Clear 50, Estimated GFR 64, Est GFR ( Amer) 77 D, Glucose 95, Calcium 8.8 I & O for Last 24 hours: Intake & Output 02/11/20 02/12/20 02/13/20 02/14/20 11:59 11:59 11:59 11:59 Intake Total 1437 / 1437 1907 / 1907 Output Total 600 / 600 625 / 625 Balance 837 / 837 1282 / 1282 Weight 158 lb 5 oz 157 lb 4 oz Microbiology Reports for the Last 24 Hours: Microbiology 02/11/20 16:58 Urine,Clean Catch Urine Culture - Final Escherichia coli - Constitutional no acute distress - *Routine HEENT Exam Head: Present: normocephalic Eye: Present: PERRL ENT: Present: mucous membranes moist - *Routine Neck Exam Present: supple. Absent: lymphadenopathy - *Routine Respiratory Exam Present: decreased breath sounds, rhonchi - *Routine Cardiovascular Exam Present: RRR - *Routine Abdominal Exam Present: soft, normoactive bowel sounds. Absent: tenderness - *Routine Extremities Exam Present: normal capillary refill. Absent: cyanosis, clubbing, edema - *Routine Skin Exam Present: warm. Absent: rash - *Routine Neurological Exam Present: alert, oriented X3 - Routine Psychiatric Exam Present: normal affect Assessment and Plan (1) Thrombocytopenia Status: Acute Category: Medical Code(s): D69.6 - Thrombocytopenia, unspecified (2) UTI (urinary tract infection) Status: Acute Qualifiers: Urinary tract infection type: acute cystitis Hematuria presence: with hematuria Qualified Code(s): N30.01 - Acute cystitis with hematuria Category: Medical Code(s): N39.0 - Urinary tract infection, site not specified (3) Acute delirium Status: Acute Category: Medical Code(s): R41.0 - Disorientation, unspecified (4) Renal insufficiency Status: Acute Category: Medical Code(s): N28.9 - Disorder of kidney and ureter, unspecified (5) Elevated troponin Status: Acute Category: Medical Code(s): R77.8 - Other specified abnormalities of plasma proteins (6) Severe sepsis with acute organ dysfunction Status: Acute Category: Medical Code(s): A41.9 - Sepsis, unspecified organism; R65.20 - Severe sepsis without septic shock - Assessment and plan all Dx Assessment and Plan for all problems:: rounded with dr olvera all orders per dr olvera family request placement
--- NOTE | 2020-02-13 16:12 | PC.NURSE ---
A&OX4. PT HAS TOLERATED ROOM AIR WELL THROUGHOUT SHIFT. RESPIRATIONS REGULAR AND UNLABORED. WHEEZES NOTED THROUGHOUT. OCCASIONAL NONPRODUCTIVE COUGH NOTED. ACTIVE BOWEL SOUNDS HEARD IN ALL 4 QUADRANTS. SOFT AND NONTENDER ABDOMEN. NO BM THUS FAR. KERR CATHETER INTACT W YELLOW URINE DRAINING INTO COLLECTION BAG. NO KINKS NOTED. HAND STUDENT RECORDS SPECIALIST EQUAL. +2 PULSES NOTED. NO EDEMA NOTED. PT REFUSED TEDS. AT BEDSIDE. STATES HAD BLUE JEANS AND WALLET ON ADMISSION. CHECKED PATIENT BELONGINGS THAT WAS CHARTED ON ADMISSION AND THE ONLY THING DOCUMENTED WAS A WATCH AND PAJAMAS WHICH IS IN THE PATIENT'S ROOM. STAFF CALLED AND ASKED ABOUT WHAT PT HAD ON ADMISSION AND THEY STATED PAJAMAS AND WATCH. THEY DIDN'T MENTION A WALLET AT ALL. ER AND ER ADMISSIONS WAS ALSO CONTACTED AND THEY STATED THEY DIDN'T HAVE IT DOWN THERE. DAUGHTER CONTACTED AND SHE SAID THE PT DIDN'T COME IN WITH BLUE JEANS ON, HE HAD PAJAMA BOTTOMS ON. SHE STATES THE MOTHER PROBABLY TOOK IT HOME WITH HER AND SHE APPRECIATES US LOOKING. Dominga COHEN RN AWARE OF SITUATION. WILL CONTINUE TO LOOK. ALSO HAD MED SURG STAFF TO LOOK TO MAKE SURE THEY DIDN'T SEE ANYTHING AND THEY DIDN'T SEE ANYTHING. PT WAS UP TO THE CHAIR FOR AWHILE TODAY AND TOLERATED WELL. PT IS CURRENTLY LYING IN BED RESTING. BED IN LOWEST POSITION. CALL LIGHT WITHIN REACH. BED ALARM ON TO PROMOTE SAFETY. VSS. WILL CONTINUE TO MONITOR.
--- NOTE | 2020-02-13 19:13 | PC.NURSE ---
report given to veronica
[2020-02-14] VITALS (10 sets, daily range): BP systolic 154–188; BP diastolic 71–92; PULSE 52–70; RESP 16–19; TEMP 36.4–36.9; O2SAT 95–97; BMI 22.8
--- NOTE | 2020-02-14 05:50 | PC.NURSE ---
Pt has slept well most of this shift. Pt had one episode of vomiting. Dr. Franz informed, but pt required no intervention after vomiting episode. Pt has had increased BP this shift, Dr. Franz aware. Denies pain/distress at this time. Gil catheter in place. Afebrile. UOP clear/yellow.
[2020-02-14 08:37] LABS: Basophils % 0.2 % (0.1-2.0); Eosinophils # 0.1 K/mm3 (0.0-0.4); Eosinophils % 0.8 % (0.1-12.0); Hematocrit 36.9 % (42.0-52.0); Hemoglobin 11.7 g/dL (14.1-18.0); Lymphocytes # 0.9 K/mm3 (0.7-4.5); Lymphocytes % 6.9 % (10-50); Mean Corpuscular HGB Conc 31.6 g/dL (31.8-35.4); Mean Corpuscular Hemoglobin 30.5 pg (27.0-31.2); Mean Corpuscular Volume 96.4 fl (80-94); Mean Platelet Volume 9.4 fl (7.4-10.4); Monocytes # 0.3 K/mm3 (0.1-1.0); Monocytes % 2.8 % (1.7-9.3); Neutrophils % 89.4 % (37.0-80.0); Platelet Count 79 K/mm3 (142-424); Red Blood Count 3.83 M/mm3 (4.60-6.20); Red Cell Distribution Width 14.9 % (11.5-17.5); White Blood Count 12.3 K/mm3 (4.8-10.8)
[2020-02-14 08:39] LABS: Chloride 107 mmol/L (98-107); MANUAL DIFFERENTIAL MANUAL DIFFERENTIAL (MANUAL DIFF)
[2020-02-14 08:40] LABS: Potassium 3.7 mmoL/L (3.5-5.1); Sodium 137 mmol/L (136-145)
[2020-02-14 08:43] LABS: Anion Gap 10.7 mEq/L (5-15); Blood Urea Nitrogen 18 mg/dl (9-20); Calcium 8.6 mg/dl (8.4-10.2); Carbon Dioxide 23 mmol/L (22.0-30.0); Creatinine Clearance Estimated 58 mL/min (50-200); Estimated Glomerular Filt Rate 71 ml/min (>60); GFR (African American) 86 ML/MIN (>60); Glucose 92 mg/dl (74-100)
--- NOTE | 2020-02-14 08:44 | HMH.ACPN2 ---
Internal Medicine - PN: Subj *Date: 02/14/20 *Time: 08:48 Interval history: 84-year-old male patient resting quietly in bed, moans with verbal stimulation. in room reports she would be unable to take care of him if discharged to home, case management currently exploring jail options. Exam Vital signs and Labs for Last 24 Hours: Temp Pulse Resp BP Pulse Ox 98.5 F 60 19 180/80 H 96 02/14/20 07:47 02/14/20 07:47 02/14/20 07:47 02/14/20 07:47 02/14/20 07:47 Laboratory Results - last 24 hr 02/13/20 08:37: WBC 14.2 H, RBC 3.85 L, Hgb 11.9 L, Hct 37.0 L, MCV 96.2 H, MCH 30.8, MCHC 32.0, RDW 15.0, Plt Count 81 L, MPV 8.8, Neut % (Auto) 89.7 H, Lymph % (Auto) 5.4 L, [place] % (Auto) 3.9, Eos % (Auto) 0.9, Baso % (Auto) 0.1, Neut # (Auto) 12.7 H, Lymph # (Auto) 0.8, [place] # (Auto) 0.6, Eos # (Auto) 0.1, Baso # (Auto) 0.0, Total Counted 100, Neutrophils % (Manual) 84 H, Band Neutrophils % 7.0, Lymphocytes % (Manual) 7 L, Monocytes % (Manual) 2, Platelet Estimate Marked decrease, RBC Morphology Normal 02/13/20 08:37: Sodium 140, Potassium 3.8, Chloride 111 H, Carbon Dioxide 22, Anion Gap 10.8, BUN 27 H, Creatinine 1.10 D, Estimated Creat Clear 50, Estimated GFR 64, Est GFR ( Amer) 77 D, Glucose 95, Calcium 8.8 02/14/20 08:28: WBC 12.3 H, RBC 3.83 L, Hgb 11.7 L, Hct 36.9 L, MCV 96.4 H, MCH 30.5, MCHC 31.6 L, RDW 14.9, Plt Count 79 L, MPV 9.4, Neut % (Auto) 89.4 H, Lymph % (Auto) 6.9 L, [place] % (Auto) 2.8, Eos % (Auto) 0.8, Baso % (Auto) 0.2, Neut # (Auto) 11.0 H, Lymph # (Auto) 0.9, [place] # (Auto) 0.3, Eos # (Auto) 0.1, Baso # (Auto) 0.0 02/14/20 08:28: Sodium 137, Potassium 3.7, Chloride 107 I & O for Last 24 hours: Intake & Output 02/11/20 02/12/20 02/13/20 02/14/20 23:59 23:59 23:59 23:59 Intake Total 1677 / 1677 3514 / 3514 1156 / 1156 Output Total 600 / 600 500 / 500 775 / 775 1100 / 1100 Balance -600 / -600 1177 / 1177 2739 / 2739 56 / 56 Weight 156 lb 3 oz 158 lb 5 oz 157 lb 4 oz 163 lb 1 oz Microbiology Reports for the Last 24 Hours: Microbiology 02/11/20 16:26 Blood Blood Culture - Preliminary NO GROWTH AFTER 48 HOURS 02/11/20 16:26 Blood Blood Culture - Preliminary NO GROWTH AFTER 48 HOURS 02/11/20 16:58 Urine,Clean Catch Urine Culture - Final Escherichia coli - Constitutional no acute distress, chronically ill appearing - *Routine HEENT Exam Head: Present: normocephalic ENT: Present: mucous membranes moist - *Routine Neck Exam Present: trachea midline. Absent: JVD, tracheal deviation - *Routine Respiratory Exam Present: rales, rhonchi. Absent: accessory muscle use - *Routine Cardiovascular Exam Present: RRR - *Routine Abdominal Exam Present: soft, normoactive bowel sounds. Absent: tenderness, rigid - *Routine Extremities Exam Present: pulses intact. Absent: cyanosis, edema - *Routine Skin Exam Present: intact, warm. Absent: cyanosis, jaundice - *Routine Neurological Exam Present: altered mental status. Absent: alert - Routine Psychiatric Exam Present: unable to assess Assessment and Plan (1) Thrombocytopenia Status: Acute Category: Medical Code(s): D69.6 - Thrombocytopenia, unspecified (2) UTI (urinary tract infection) Start date: 02/11/20 (E. coli) Status: Acute Qualifiers: Urinary tract infection type: acute cystitis Hematuria presence: with hematuria Qualified Code(s): N30.01 - Acute cystitis with hematuria Category: Medical Code(s): N39.0 - Urinary tract infection, site not specified (3) Acute delirium Status: Acute Category: Medical Code(s): R41.0 - Disorientation, unspecified (4) Renal insufficiency Status: Acute Category: Medical Code(s): N28.9 - Disorder of kidney and ureter, unspecified (5) Elevated troponin Status: Acute Category: Medical Code(s): R77.8 - Other specified abnormalities of plasma pr
--- NOTE | 2020-02-14 08:50 | CA_ITS ---
APPROVED REPORT EXAM: Comprehensive 2D, Doppler, and color-flow Echocardiogram Core Loader: Marla Nagy RVT Ht: 5 ft 10 in Wt: 163lbs BSA: 1.91 BP: 180/80 mmHg Indications: SOA,SEPSIS,UTI,ELEVATED TROPONIN,SMOKER,COPD,HTN,HLD TDS-PT FLAT ON BACK,BEST EXAM POSSIBLE 2D Dimensions LVOT 2.73 cm (M/F) 1.5-2.5 M-Mode Dimensions LVDd 5.66 cm (3.5-5.7) LVDs 4.23 cm (3.5-5.7) IVSd 0.98 cm (0.6-1.1) PWd 1.03 cm (0.6-1.1) EF (Teich) 49.30% FS 25.30% EDV (Teich) 157.50 mL ESV (Teich) 79.90 mL LV Diastology E/A Ratio 0.75 Mitral Valve MV A Velocity 105.00 (40-130 cm/s) Left Ventricle Technically difficult study because of the patient factors and poor acoustic windows. Left atrium is mildly enlarged, left ventricle is normal size, mild concentric left ventricular hypertrophy, visually estimated ejection fraction 50% with no obvious regional wall motion abnormality, endocardial surfaces are poorly visualized. Right Ventricle Right atrium and right ventricle are mildly enlarged with normal contractility. Aortic Valve Aortic valve is thickened and calcified leaflet chordae display good mobility, there is mild aortic insufficiency, Doppler is not indicated above aortic stenosis. Mitral Valve Mitral valve leaflets are minimally thickened, there is mild mitral regurgitation. There is no mitral stenosis. Tricuspid Valve Tricuspid valve is minimally thickened, there is mild tricuspid regurgitation tricuspid regurgitation jet velocity is inadequate for calculation of the right ventricular systolic pressure. Pulmonic Valve Pulmonic valve is poorly visualized. Great Vessels Aortic root is normal size. Pericardium No significant pericardial effusion noted. Conclusion 1. Technically difficult study because of the patient factors and poor acoustic windows. 2. Biatrial enlargement, normal left ventricular size, mild concentric left ventricular hypertrophy, visually estimated ejection fraction 50% with no regional wall motion abnormality, Doppler evidence of impaired LV relaxation seen, there is no tissue Doppler performed. 3. Mildly enlarged right ventricle with normal contractility. 4. Mild aortic, mild mitral and tricuspid regurgitation. 5. No significant pericardial effusion noted. Electronically signed by : Kerwin Motley, 02/14/2020 20:33:54
[2020-02-14 09:07] LABS: Lymphocytes % 9 % (10-50); Monocytes % 3 % (2-9); Neutrophils % 88 % (42-76); Platelet Estimate Normal; RBC Morphology Normal; Total Cells Counted 100
--- NOTE | 2020-02-14 10:18 | FL_ITS ---
PROCEDURE: FL BARIUM SWALLOW MODIFIED CLINICAL INDICATION: Dysphagia COMPARISON: No exams were available for comparison TECHNIQUE: Patient administered varying consistencies of barium contrast, while viewed in lateral position under real-time fluoroscopy with cine recording. FLUOROSCOPY TIME:4 minutes and 26 seconds The study was performed in conjunction with speech pathologist. Please see that report & recommendations. FINDINGS: Patient was given varying consistencies of barium. There was early spillage contrast into the vallecula and piriform sinuses. There was penetration on thins and nectar was mild stasis. There was poor oral motor control. There was a small degree of tracheal aspiration with thin liquids.. IMPRESSION: Abnormal modified barium swallow with penetration and tracheal aspiration with thin liquids with stasis and moderate delay. Please see speech pathologist report and recommendations. Dictated by: Gokul Hardy MD 02/15/2020 17:47 Goukl Hardy MD in [place] 02/15/2020 17:47
--- NOTE | 2020-02-14 12:57 | HMH.SLDYSPHA ---
Speech & Language Evaluation Speech/Language Dysphagia Evaluation Start: 02/14/20 12:54 Freq: ONCE Status: Active Protocol: Document 02/14/20 12:54 ALEX (Rec: 02/14/20 12:57 ALEX [id number]) Dysphagia Assess/Goals/Plan Assessment Date of Evaluation: 02/14/20 Evaluation Type Initial Certification Assessment/Problems Dysphagia Does Patient Qualify for Service No Qualify/Failure Comment Qualification depends on results of MBS. Plan Pt/Guardian verbally ack understanding Yes: RN notified of dx/prognosis/goals G -code Required No Speech & Language HPI Language Primary Language Belarusian General Information General Current Food Consistancy Regular,Thin Liquids Dentition Upper & Lower Dentures Oxygen Status Nasal Cannula Facial Symmetry Symmetrical Patient Orientation Person,Place,Time,Situation Ability to Follow Directions Excellent Communication Ability No Impairment Dysphagia:Food Presentation Evaluation Food Type Pureed,Mechanical Soft,Regular ,Liquid,Pudding Dysphagia Evaluation Summary Mr. Vizcaino was given the following consistencies: thins via straw and open cup, pudding, pureed, mechanical soft, and regular. No signs of dysphagia were noted however it is recommended that a MBS be completed to rule out silent aspiration. The need for therapy will be determined by results of modified barium swallow. Stroke Dysphagia Assessment PHYSICIAN CERTIFICATION: I certify the specified therapy services for Salvatore Vizcaino JR are required, authorized, and reviewed every 30 days.
--- NOTE | 2020-02-14 14:22 | HMH.SLMBS2 ---
Speech & Language Evaluation Speech/Language Mod Barium Swallow Start: 02/14/20 10:18 Freq: ONCE Status: Complete Protocol: Document 02/14/20 14:12 ALEX (Rec: 02/14/20 14:22 ALEX [id number]) General Information General Current Food Consistancy Regular,Thin Liquids Dentition Upper & Lower Dentures Comment: Did not wear dentures for evaluation Oxygen Status Room Air Facial Symmetry Symmetrical Patient Orientation Person,Place,Time,Situation Ability to Follow Directions Excellent Communication Ability No Impairment MBS Recommendations Diet Dietary Recommendations Pureed,Thin Liquids Treatment/Strategies Strategy/Precaution Recommend Sitting Upright (90 deg),Small Bites and Sips,Alternate Liquids/Solids Mod Barium Swallow Impressions Summary and Impressions Oral Phase Impression Moderate Impairment Oral Phase Summary Mr. Vizcaino did exhibit premature spillage into the laryngeal vestibule with all liquid consistencies (thins, nectar, honey). He had extended mastication time with exhaustion with mechanical soft. Pharyngeal Phase Impression Severe Impairment Pharyngeal Phase Summary Mr. Vizcaino did silent aspirate on thin liquids via straw and spoon. He penetrated to the vocal folds with nectar and honey with no cough reflex. When prompted to cough, cough was weak and unproductive. He is at risk for aspiration of nectar, honey, pudding due to residue in pyriform sinuses, valleculae, and pharyngeal wall. Chin tuck did not improve swallow. Speech/Language MBS Assessment/Goals/Plan Assessment Date of Evaluation: 02/14/20 Evaluation Type Re-Evaluation/Revise POC Assessment/Problems Dysphagia Does Patient Qualify for Service No Qualify/Failure Comment At this time, due to difficulty following directions, speech therapy would not be productive. Patient will be monitored throughout his course of stay for diet modifications and
--- NOTE | 2020-02-14 14:53 | MR_ITS ---
PROCEDURE: MR HEAD/BRAIN WO CON CLINICAL INDICATION: CVA Altered mental status, altered level of consciousness, confusion, disorientation COMPARISON: No exams were available for comparison TECHNIQUE: Routine multiplanar multi echo sequences are performed without gadolinium enhancement. FINDINGS: No midline shift, mass effect, intracranial hemorrhage, or hydrocephalus. No evidence acute infarction. There is moderate generalized atrophy with periventricular and subcortical T2 white matter hyperintensities consistent with ischemic gliotic change from microvascular disease. 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 The pituitary, optic chiasm, corpus callosum, and craniocervical junction have an unremarkable appearance. There is near complete opacification of the right maxillary sinus with an air-fluid level. Retention cyst is present in the left maxillary sinus inferiorly. Bilateral mastoid effusions are present. IMPRESSION: 1. 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 No acute infarction evident. 2. Paranasal sinus disease with bilateral mastoid effusions. Dictated by: Gokul Hardy MD 02/14/2020 17:21 Gokul Hardy MD in [place] 02/14/2020 17:21
--- NOTE | 2020-02-14 15:03 | HMH.CNCARD ---
History of Present Illness Consult date: 02/14/20 Requesting physician: Laz Franz Chief complaint: Elevated troponins, Sick sinus syndrome Additional Medical History:: 1. Hypertension A. Echo, 2018, normal EF (55%) with mild left atrial enlargement and concentric LVH. Right ventricular systolic pressure 33 mmHg. 2. Hyperlipidemia 3. Tobacco use since teenager 4. COPD 5. Sick sinus syndrome with atrial fibrillation and now sinus bradycardia on no rate control medications, 02/14/2020 6. Anemia, 02/2020, hemoglobin 11.5 7. Thrombocytopenia, 02/2020, platelets around 80,000 8. Chronic white matter changes on CT of the head, 02/2020 History of present illness: this pt fell at home with reported change in mental status- he was transported to ed by ems- er EMS report pt family reports pt fell earlier today, they helped him up, pt was not c/o pain. Pt family reported that pt is not acting his normal. Pt speech is pt normal per EMS report. Pt has dried blood noted to Ayde botello. Pt denies presence of pain This is a 84-year-old male that presents via EMS due to altered mental status. Patient apparently had a mechanical fall earlier today however he denied any injury at that time other than the nosebleed. According to EMS patient's family had placed him back in bed. Over the course of the next 2 to 3 hours patient's mentation seems to vary from his baseline as such EMS was called for transport due to altered mental status with possibility of stroke. Upon arrival patient denies any complaints. He denies any injuries. Patient is however unoriented. Speech is slurred however EMS reports family endorses this is his baseline. Patient is alert currently only to person. Further subjective assessment limited given patient's mental status pt was admitted with acute uti. The above per Dr. Franz's H&P During the course of his stay patient's troponins have been trended upward and cardiac rhythm has gone from atrial fibrillation with a controlled ventricular rate on admission to sinus rhythm now with bradycardic rate into the 30s. Cardiology consulted for evaluation and recommendations. Patient is a poor historian but denies any chest pain, pressure or tightness at this time. He is being taken to MRI of the head at this time. Troponin from today is pending at this time. Preliminary echocardiogram from today shows preserved ejection fraction with no significant valvular heart disease. [facility] History Medical History: Reports:: Chronic Obstructive Pulmonary Disease (COPD), Hyperlipidemia, Hypertension Denies:: Cancer, Diabetes Mellitus Type 1, Diabetes Mellitus Type 2, MRSA *Have you ever received a pneumonia vaccine?: No *Have you received a flu vaccine this season?: No Other Medical History: Reports: Cataracts, Sinus Problems Other Surgeries: Yes: Colonoscopy, EGD, Other Amputation: No Fractures: No - *Social History Last grade of school completed: 9th or 10th Smoking Status: Current every day smoker Tobacco Type: cigarettes # Packs/Day (cigarettes): 2 Alcohol Intake: never Alcohol Intake Frequency:: 3 or more drinks per day Substance Use Type: denies use *Occupational Status:: retired Housing: house Household Members: spouse *Travel in the last 8 weeks: None Family Hx:: Stroke Meds Home Medications Medication Instructions Recorded Confirmed Type aspirin 325 mg tablet 325 mg PO DAILY 05/28/17 02/11/20 History Pravastatin Sodium [Pravachol] 40 mg PO DAILY 02/11/20 02/12/20 History cilostazoL [Pletal 100mg tablet] 100 mg PO BID 02/11/20 02/11/20 History lisinopriL [Lisinopril 5mg 5 mg PO DAILY 02/11/20 02/11/20 History Tablet] Allergies Allergy/AdvReac Type Severity Reaction Status Date / Time No Known Allergies Allergy Verified 09/05/19 14:01 Exam Vital signs and Labs for Last 24 Hours: Temp Pulse Resp BP Pulse Ox 98.0 F 60 18 172/87 H 95 02/14/20 11:09 02/14/20 11:09
--- NOTE | 2020-02-14 15:18 | XR_ITS ---
PROCEDURE: XR CHEST AP CLINICAL HISTORY: Rhonchi on exam COMPARISON: CR CXR1 CHEST-PORTABLE from 09/10/2012 CR CXR1VP XR chest portable from 06/14/2017 CR XR CHEST PORTABLE from 02/11/2020 FINDINGS: Mild cardiomegaly. There is some mild pulmonary venous congestion which may be related mild CHF. Old granulomatous disease. No acute bony abnormalities. IMPRESSION: Cardiomegaly with mild pulmonary venous congestion suggesting mild CHF Dictated by: Gokul Hardy MD 02/14/2020 17:00 Gokul Hardy MD in [place] 02/14/2020 17:00
[2020-02-14 15:43] LABS: Troponin I 0.05 ng/ml (0.00-0.034)
--- NOTE | 2020-02-14 17:09 | PC.NURSE ---
pt has done well today. he talked with staff quite a bit. he did refuse to get up to the chair so staff was able to get pt to sit up in the bed for a bit. Dr. Pinedo made aware of pt low heart rate in the 40-50's with occasionally dropping in the 30's. no new orders. pt had good uop this shift post lasix given, see I&O. pt cont to have crackles and rales on ascultation, but is better than this am. bowel sounds active. bilat hvac instructor equal. vss. will cont. to monitor.
[2020-02-15] VITALS (11 sets, daily range): BP systolic 136–175; BP diastolic 69–86; PULSE 50–70; RESP 11–22; TEMP 36.7–37.2; O2SAT 92–96; BMI 22.2
--- NOTE | 2020-02-15 03:17 | PC.NURSE ---
A&OX3. ALTURAS. INTERNATIONAL FIRST OFFICER EQUAL BILAT. TOLERATED MED PASS WITH PILLS CRUSHED, IN APPLE SAUCE WELL. LUNGS NOTED WITH RHONCHI IN RIGHT LOWER BASE, SCATTERED WHEEZING PER AUSCULTATION. INTERMITTENT, LOOSE, NONPRODUCTIVE COUGH NOTED. TOLERATED RA WELL. PULSES +2. ABDOMEN NOTED WITH ACTIVE BOWEL SOUNDS, SOFT AND NONTENDER PER PALPATION. KERR CATHETER PATENT AND DRAINING YELLOW, CLEAR URINE. TURNED AND REPOSITIONED INTERMITTENTLY T/O SHIFT. VSS. WILL CONTINUE TO MONITOR.
[2020-02-15 07:03] LABS: Basophils % 0.3 % (0.1-2.0); Eosinophils # 0.1 K/mm3 (0.0-0.4); Hemoglobin 11.7 g/dL (14.1-18.0); Lymphocytes # 1.3 K/mm3 (0.7-4.5); Lymphocytes % 16.9 % (10-50); Mean Corpuscular HGB Conc 31.6 g/dL (31.8-35.4); Mean Corpuscular Hemoglobin 30.3 pg (27.0-31.2); Mean Platelet Volume 8.5 fl (7.4-10.4); Monocytes # 0.4 K/mm3 (0.1-1.0); Monocytes % 5.7 % (1.7-9.3); Neutrophils # 5.8 K/mm3 (1.8-7.8); Neutrophils % 76.1 % (37.0-80.0); Platelet Count 88 K/mm3 (142-424); Red Blood Count 3.85 M/mm3 (4.60-6.20); Red Cell Distribution Width 14.7 % (11.5-17.5); White Blood Count 7.6 K/mm3 (4.8-10.8)
[2020-02-15 07:22] LABS: Chloride 102 mmol/L (98-107); Sodium 136 mmol/L (136-145)
[2020-02-15 07:23] LABS: Potassium 3.4 mmoL/L (3.5-5.1)
[2020-02-15 07:25] LABS: Blood Urea Nitrogen 18 mg/dl (9-20); Creatinine Clearance Estimated 56 mL/min (50-200); Estimated Glomerular Filt Rate 71 ml/min (>60); GFR (African American) 86 ML/MIN (>60)
[2020-02-15 07:26] LABS: Anion Gap 9.4 mEq/L (5-15); Calcium 8.7 mg/dl (8.4-10.2); Carbon Dioxide 28 mmol/L (22.0-30.0); Glucose 81 mg/dl (74-100)
--- NOTE | 2020-02-15 08:29 | HMH.DCSUM ---
General - General Admission date:: 02/11/20 Discharge date: 02/15/20 HPI HPI: this pt fell at home with reported change in mental status- he was transported to ed by ems- er EMS report pt family reports pt fell earlier today, they helped him up, pt was not c/o pain. Pt family reported that pt is not acting his normal. Pt speech is pt normal per EMS report. Pt has dried blood noted to R nare. Pt denies presence of pain This is a 84-year-old male that presents via EMS due to altered mental status. Patient apparently had a mechanical fall earlier today however he denied any injury at that time other than the nosebleed. According to EMS patient's family had placed him back in bed. Over the course of the next 2 to 3 hours patient's mentation seems to vary from his baseline as such EMS was called for transport due to altered mental status with possibility of stroke. Upon arrival patient denies any complaints. He denies any injuries. Patient is however unoriented. Speech is slurred however EMS reports family endorses this is his baseline. Patient is alert currently only to person. Further subjective assessment limited given patient's mental status pt was admitted with acute uti Hospital Course Hospital Course: Cardiology has seen and Rec: 1. Elevated troponins in a patient with UTI and sepsis which is likely the cause for the elevated troponins. Echocardiogram shows preserved ejection fraction. Continue NORMAN inhibitor therapy. Due to the patient's altered mental status and thrombocytopenia, will hold off on antiplatelet therapy at this time. Repeat troponin is pending but no immediate plans for invasive procedures. 2. Sick sinus syndrome with paroxysmal atrial fibrillation and now intermittent sinus bradycardia on no rate control medications. Continue to monitor at this time but patient may need permanent pacemaker placement in the future in SSS continues after sepsis has resolved. Despite elevated CHADS-VASC score in this patient with PAF, will not start anticoagulation due to his altered mental status, anemia and thrombocytopenia. 3. Anemia with thrombocytopenia. Hemoglobin stable around 11.5 with platelet count stable around 80,000. 4. Hypertension, on lisinopril therapy. Will increase to 5 mg twice daily. 5. Altered mental status with CT of the head on admission showing no acute intracranial process. MRI being obtained today for further evaluation. 6. UTI/sepsis with elevated lactic acid, which is improving, on antibiotic therapy per Dr. Franz. 7. Acute renal insufficiency, resolved. 8. Pulmonary rhonchi on exam. Recommend repeating chest x-ray for further evaluation. Some concern for aspiration with speech evaluation pending. Objective Vital signs: Temp Pulse Resp BP Pulse Ox 98.6 F 50 L 18 136/69 95 02/15/20 07:42 02/15/20 07:42 02/15/20 07:42 02/15/20 07:42 02/15/20 07:42 no acute distress, chronically ill appearing - *Routine HEENT Exam Head: Present: normocephalic ENT: Present: mucous membranes moist - *Routine Neck Exam Present: full ROM, trachea midline. Absent: tracheal deviation Results Labs on day of discharge: Labs from last 24 hours 02/15/20 02/15/20 02/14/20 06:30 06:30 14:58 WBC 7.6 D RBC 3.85 L Hgb 11.7 L Hct 37.0 L MCV 96.0 H MCH 30.3 MCHC 31.6 L RDW 14.7 Plt Count 88 L MPV 8.5 Neut % (Auto) 76.1 Lymph % (Auto) 16.9 Gage % (Auto) 5.7 Eos % (Auto) 1.0 Baso % (Auto) 0.3 Neut # (Auto) 5.8 Lymph # (Auto) 1.3 Gage # (Auto) 0.4 Eos # (Auto) 0.1 Baso # (Auto) 0.0 Total Counted Neutrophils % (Manual) Lymphocytes % (Manual) Monocytes % (Manual) Platelet Estimate RBC Morphology Sodium 136 Potassium 3.4 L Chloride 102 Carbon Dioxide 28 D Anion Gap 9.4 BUN 18 Creatinine 1.00 Estimated Creat Clear 56 Estimated GFR
--- NOTE | 2020-02-15 09:48 | HMH.PNCARD ---
Subjective Date: 02/15/20 Time: 09:40 Principal diagnosis: elevated tropnin, sepsis Interval history: This is an 84-year-old white gentleman who presented to the emergency department with altered mental status. The patient had fallen at home and then over the course of the next 2 to 3 hours his mental status changed and they brought him in to the hospital via EMS. When he arrived to the hospital he denied any complaints and did not have any reported injuries. The patient did have a slight elevation in his troponins but he denied any chest pain or chest pressure. His repeat troponin yesterday was back down to 0.05. The patient did go into atrial fibrillation with a controlled right, however he did have some bradycardia with his heart rate in the 30s. Today the patient states that he feels great. He denies any chest pain or pressure. He denies any shortness of breath or edema. He denies any fever, chills, nausea, vomiting, diarrhea, PND or orthopnea. Exam Vital signs and Labs for Last 24 Hours: Temp Pulse Resp BP Pulse Ox 98.6 F 50 L 18 136/69 95 02/15/20 07:42 02/15/20 07:42 02/15/20 07:42 02/15/20 07:42 02/15/20 07:42 Laboratory Results - last 24 hr 02/14/20 14:58: Troponin I 0.05 H 02/15/20 06:30: WBC 7.6 D, RBC 3.85 L, Hgb 11.7 L, Hct 37.0 L, MCV 96.0 H, MCH 30.3, MCHC 31.6 L, RDW 14.7, Plt Count 88 L, MPV 8.5, Neut % (Auto) 76.1, Lymph % (Auto) 16.9, Pratt % (Auto) 5.7, Eos % (Auto) 1.0, Baso % (Auto) 0.3, Neut # (Auto) 5.8, Lymph # (Auto) 1.3, Pratt # (Auto) 0.4, Eos # (Auto) 0.1, Baso # (Auto) 0.0 02/15/20 06:30: Sodium 136, Potassium 3.4 L, Chloride 102, Carbon Dioxide 28 D, Anion Gap 9.4, BUN 18, Creatinine 1.00, Estimated Creat Clear 56, Estimated GFR 71, Est GFR ( Amer) 86, Glucose 81, Calcium 8.7 I & O for Last 24 hours: Intake & Output 02/12/20 02/13/20 02/14/20 02/15/20 23:59 23:59 23:59 23:59 Intake Total 1677 / 1677 3514 / 3514 1156 / 1156 100 / 100 Output Total 500 / 500 775 / 775 3500 / 4700 1200 / 1200 Balance 1177 / 1177 2739 / 2739 -2344 / -3544 -1100 / -1100 Weight 158 lb 5 oz 157 lb 4 oz 163 lb 1 oz 159 lb 1 oz Narrative: Telemetry strip shows sinus bradycardia with a rate of 55. - Constitutional no acute distress, average body habitus, chronically ill appearing - *Routine HEENT Exam Head: Present: normocephalic, atraumatic Eye: Present: EOMI, PERRL ENT: Present: mucous membranes moist - *Routine Neck Exam Present: supple, full ROM, normal carotid upstroke. Absent: JVD, carotid bruit, lymphadenopathy - *Routine Respiratory Exam Present: CTA bilaterally - *Routine Cardiovascular Exam Present: RRR, Normal S1, Normal S2. Absent: murmur - *Routine Abdominal Exam Present: soft, normoactive bowel sounds. Absent: tenderness, distended - *Routine Extremities Exam Present: full ROM, pulses intact, normal capillary refill. Absent: cyanosis, clubbing, edema - *Routine Skin Exam Present: intact, warm. Absent: erythema, rash - *Routine Neurological Exam Present: alert, oriented X3, CN II-XII intact. Absent: sensory deficit, motor deficit - Routine Psychiatric Exam Present: normal affect, normal thought process Progress Note: A&P (1) Elevated troponin Status: Acute (2) Thrombocytopenia Status: Acute (3) UTI (urinary tract infection) Status: Acute (4) Acute delirium Status: Acute (5) Renal insufficiency Status: Acute (6) Severe sepsis with acute organ dysfunction Status: Acute (7) Atrial fibrillation Status: Acute (8) Sinus bradycardia Status: Acute (9) PVD (peripheral vascular disease) Status: Acute (10) Hypertension Status: Chronic (11) Hyperlipidemia Status: Chronic Assessment and Plan for All Diagnoses:: Plan: 1. The patient was admitted to the hospital with altered mental status. The patient is being treated for severe sepsis. Will defer management of this to his primary care provider. 2. T
--- NOTE | 2020-02-15 11:13 | SW/DCPLANNER ---
Addendum entered by Jasmin Esquivel 02/15/20 15:11: HAVE MADE A COUPLE OTHER CALLS TO [facility] TODAY AND HAD TO LEAVE VOICE MESSAGES.... SPOKE WITH THE WEEKDAY BABYSITTER AND MIRANDA STATED THEY HAVE NOT HEARD FROM THE INSURANCE COMPANY YET... I DID CALL [facility] AND EXPLAINED TO HER THE INSURANCE COMPANY HAS NOT GIVEN THE APPROVAL YET AND SO THEREFORE WE ARE UNABLE TO SEND HIM... SHE STATED SHE WAS GOING TO TRY AND CALL THEM... WAITING TO HEAR BACK AND ONCE ACCEPTED PATIENT WILL DISCHARGE THERE... Original Note: AFTER MD ROUNDING THIS MORNING DR ZAPATA STATED PATIENT IS READY FOR A DISPOSITION TO THE CUSTODIAL... I EXPLAINED TO HIM THAT THE FACILITY NEEDS A PRECERTIFICATION AND WE ARE WAITING ON THAT CONFIRMATION.. I DID CALL [facility] AND LEFT A VOICE MESSAGE WITH CECILIA GONZALEZ TO CALL ME ONCE THE INSURANCE GIVES APPROVAL..WILL NOTIFY THE ONCE I HEAR FROM THE FACILITY.
--- NOTE | 2020-02-15 13:43 | HMH.ACPN2 ---
Internal Medicine - PN: Subj *Date: 02/15/20 *Time: 09:00 Interval history: 84-year-old male patient lying in bed resting quietly, is much more alert and responsive today. Attempted to discuss DNR status with patient, he stated that he will think about this for a while and we will talk at a later time. BUN 18, creatinine 1.0 Cardiology has seen and recommends: 1. Elevated troponins in a patient with UTI and sepsis which is likely the cause for the elevated troponins. Echocardiogram shows preserved ejection fraction. Continue NORMAN inhibitor therapy. Due to the patient's altered mental status and thrombocytopenia, will hold off on antiplatelet therapy at this time. Repeat troponin is pending but no immediate plans for invasive procedures. 2. Sick sinus syndrome with paroxysmal atrial fibrillation and now intermittent sinus bradycardia on no rate control medications. Continue to monitor at this time but patient may need permanent pacemaker placement in the future in SSS continues after sepsis has resolved. Despite elevated CHADS-VASC score in this patient with PAF, will not start anticoagulation due to his altered mental status, anemia and thrombocytopenia. 3. Anemia with thrombocytopenia. Hemoglobin stable around 11.5 with platelet count stable around 80,000. 4. Hypertension, on lisinopril therapy. Will increase to 5 mg twice daily. 5. Altered mental status with CT of the head on admission showing no acute intracranial process. MRI being obtained today for further evaluation. 6. UTI/sepsis with elevated lactic acid, which is improving, on antibiotic therapy per Dr. Franz. 7. Acute renal insufficiency, resolved. 8. Pulmonary rhonchi on exam. Recommend repeating chest x-ray for further evaluation. Some concern for aspiration with speech evaluation pending. Echo results: LV Diastology E/A Ratio 0.75 Mitral Valve MV A Velocity 105.00 (40-130 cm/s) Left Ventricle Technically difficult study because of the patient factors and poor acoustic windows. Left atrium is mildly enlarged, left ventricle is normal size, mild concentric left ventricular hypertrophy, visually estimated ejection fraction 50% with no obvious regional wall motion abnormality, endocardial surfaces are poorly visualized. Right Ventricle Right atrium and right ventricle are mildly enlarged with normal contractility. Aortic Valve Aortic valve is thickened and calcified leaflet chordae display good mobility, there is mild aortic insufficiency, Doppler is not indicated above aortic stenosis. Mitral Valve Mitral valve leaflets are minimally thickened, there is mild mitral regurgitation. There is no mitral stenosis. Tricuspid Valve Tricuspid valve is minimally thickened, there is mild tricuspid regurgitation tricuspid regurgitation jet velocity is inadequate for calculation of the right ventricular systolic pressure. Pulmonic Valve Pulmonic valve is poorly visualized. Great Vessels Aortic root is normal size. Pericardium No significant pericardial effusion noted. Conclusion 1. Technically difficult study because of the patient factors and poor acoustic windows. 2. Biatrial enlargement, normal left ventricular size, mild concentric left ventricular hypertrophy, visually estimated ejection fraction 50% with no regional wall motion abnormality, Doppler evidence of impaired LV relaxation seen, there is no tissue Doppler performed. 3. Mildly enlarged right ventricle with normal contractility. 4. Mild aortic, mild mitral and tricuspid regurgitation. 5. No significant pericardial effusion noted. Electronically signed by : Kerwin Motley Brain MRI: IMPRESSION 1. 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 No acute infarction evident. 2. Paranasal sinus disease with bilateral mastoid effusions. Dictated by: Hardy, Exam Vital signs and Labs for Last 24
--- NOTE | 2020-02-15 18:52 | PC.NURSE ---
A&OX4. PT HAS TOLERATED ROOM AIR WELL THROUGHOUT SHIFT. RESPIRATIONS REGULAR AND UNLABORED. WHEEZES AND RHONCHI NOTED THROUGHOUT LUNG SOUNDS. NO COUGH NOTED. HAND SENIOR ARCHITECTURAL DESIGNER EQUAL. +2 PULSES NOTED THROUGHOUT. ACTIVE BOWEL SOUNDS HEARD THROUGHOUT. SOFT AND NONTENDER ABDOMEN. NO BM THIS SHIFT. KERR WAS DC'D AND PT HAS VOIDED SINCE THEN. CLEAR YELLOW URINE NOTED. VISITED PT TODAY. NO REPORTS OF PAIN THROUGHOUT SHIFT. PT WAS UP TO THE CHAIR FOR ABOUT 2 HOURS TODAY AND TOLERATED WELL. PT IS CURRENTLY LYING IN BED RESTING. CALL LIGHT WITHIN REACH. BED IN LOWEST POSITION. VSS. WILL CONTINUE TO MONITOR.
--- NOTE | 2020-02-15 19:16 | PC.NURSE ---
report given to danielito
[2020-02-16] VITALS: BP 170/67; PULSE 50; PULSE 62; RESP 18; TEMP 36.7; O2SAT 94
--- NOTE | 2020-02-16 03:29 | PC.NURSE ---
Pt is alert and oriented x4. Pt states upon beginning of shift during assessment he is tired and just wants to be left alone . Denies pain when asked by this RN. Pt has rested well with eyes closed t/o shift. PERRLA. Cap refill < 3 seconds. Bilateral hand aids counselor noted with mild weakness and equal, pt baseline. Bilateral lungs noted with prominent expiratory rhonchi upon auscultation. Croupy non-productive cough noted. RR noted even and unlabored. Pt tolerated RA well with no c/o SOA. Denies SOA when asked by this RN. Encouraged use of incentive spirometer while awake. This RN attempted to educate pt on use of incentive spirometer, pt refused to adequately inhale for proper use of device. Will attempt to re-educate pt in am upon awakening. Active bowel sounds noted in all 4 quads. No BM noted this shift thus far. Pt remains incontinent of bowel and bladder. Pt refused Q2H turns while in bed, states he just wants to sleep and is comfortable . Pt noted lying upright in bed lying on left side majority of shift per request. Tolerated diet well, refused PM snack. No edema noted. refused teds. VSS. Remains safe. Call light within reach. Will continue to monitor.
[2020-02-16 04:00] VITALS: BP 173/71; PULSE 50; PULSE 60; RESP 16; TEMP 36.9; O2SAT 94
[2020-02-16 05:00] VITALS: BMI 21.4
[2020-02-16 06:57] LABS: Basophils % 0.5 % (0.1-2.0); Eosinophils # 0.1 K/mm3 (0.0-0.4); Eosinophils % 1.7 % (0.1-12.0); Hematocrit 38.6 % (42.0-52.0); Hemoglobin 12.3 g/dL (14.1-18.0); Lymphocytes # 1.2 K/mm3 (0.7-4.5); Lymphocytes % 20.7 % (10-50); Mean Corpuscular Hemoglobin 30.5 pg (27.0-31.2); Mean Corpuscular Volume 95.3 fl (80-94); Mean Platelet Volume 8.8 fl (7.4-10.4); Monocytes # 0.4 K/mm3 (0.1-1.0); Monocytes % 6.7 % (1.7-9.3); Neutrophils # 4.1 K/mm3 (1.8-7.8); Neutrophils % 70.3 % (37.0-80.0); Platelet Count 94 K/mm3 (142-424); Red Blood Count 4.05 M/mm3 (4.60-6.20); Red Cell Distribution Width 14.7 % (11.5-17.5); White Blood Count 5.8 K/mm3 (4.8-10.8)
[2020-02-16 07:05] LABS: Chloride 101 mmol/L (98-107)
[2020-02-16 07:06] LABS: Potassium 3.1 mmoL/L (3.5-5.1); Sodium 136 mmol/L (136-145)
[2020-02-16 07:08] LABS: Blood Urea Nitrogen 18 mg/dl (9-20); Creatinine Clearance Estimated 54 mL/min (50-200); Estimated Glomerular Filt Rate 80 ml/min (>60); GFR (African American) 97 ML/MIN (>60)
[2020-02-16 07:09] LABS: Anion Gap 8.1 mEq/L (5-15); Calcium 8.6 mg/dl (8.4-10.2); Carbon Dioxide 30 mmol/L (22.0-30.0); Glucose 83 mg/dl (74-100)
[2020-02-16 07:26] VITALS: BP 178/72; PULSE 52; RESP 18; TEMP 36.8; O2SAT 94
[2020-02-16 08:00] VITALS: PULSE 60
--- NOTE | 2020-02-16 09:32 | SW/DCPLANNER ---
Addendum entered by Padmaja Cuenca 02/16/20 14:49: I have updated Leigh regarding this patient discharging once ambulance transports. Addendum entered by Padmaja Cuenca 02/16/20 12:55: Patient COVID results are NEGATIVE. Original Note: This patient has been approved per Leigh at [facility] by insurance to discharge today. I have informed nursing staff of discharge plans to [facility]: report # is [phone] and nurse (Laura) will need to speak with Sneha also Dr Rosales is accepting MD at [facility]. I have also informed patients (Delia) this morning via phone. Leigh has also spoke with Delia to inform her that family can come on Thursday to assist with all paperwork if they can not make it today. Rapid COVID has been ordered and once results patient can discharge pending discharge order/summary. Family and MD is aware of plan.
[2020-02-16 10:19] LABS: Adenovirus,PCR Not Detected (NotDetected); Bordetella Pertussis Not Detected (NotDetected); Chlamydophila Pneumoniae, PCR Not Detected (NotDetected); Coronavirus 19, PCR Not Detected (NotDetected); Coronavirus 229E Not Detected (NotDetected); Coronavirus NL63 Not Detected (NotDetected); Coronavirus OC43 Not Detected (NotDetected); Coronovirus HKU1,PCR Not Detected (NotDetected); Human Metapneumovirus Not Detected (NotDetected); Influenza A, PCR Not Detected (NotDetected); Influenza AH1, 2009 Not Detected (NotDetected); Influenza AH1, PCR Not Detected (NotDetected); Influenza AH3,PCR Not Detected (NotDetected); Influenza B, PCR Not Detected (NotDetected); Mycoplasma Pneumoniae, PCR Not Detected (NotDetected); Parainfluenza 1, PCR Not Detected (NotDetected); Parainfluenza 2, PCR Not Detected (NotDetected); Parainfluenza 3, PCR Not Detected (NotDetected); Parainfluenza 4, PCR Not Detected (NotDetected); Respiratory Syncytial Virus Not Detected (NotDetected); Rhinovirus/Enterovirus Not Detected (NotDetected)
--- NOTE | 2020-02-16 10:45 | HMH.PNCARD ---
Subjective Date: 02/16/20 Time: 10:45 Principal diagnosis: elevated tropnin, sepsis Interval history: This is an 84-year-old white gentleman who presented to the emergency department with altered mental status. He had fallen at home and over the course of about 2 to 3 hours he had mental status changes and they brought into the hospital via EMS. When he arrived at the hospital he denied any complaints or injuries from his fall but he did have a slight elevation in his troponins. He denied any chest pain or chest pressure. His repeat troponin trended back down. Medical management has been recommended at this time. The patient did go into atrial fibrillation with a controlled rate however he did have some bradycardia with a heart rate in the low 30s. During the night last night he did have a 7 beat run of nonsustained V. tach versus A. fib with aberrancy. The patient was asymptomatic. This morning he denies any chest pain or pressure. He denies any shortness of breath or edema. He denies any fever, chills, nausea, vomiting, diarrhea, PND or orthopnea. Exam Vital signs and Labs for Last 24 Hours: Temp Pulse Resp BP Pulse Ox 98.2 F 52 L 18 178/72 H 94 L 02/16/20 07:26 02/16/20 07:26 02/16/20 07:26 02/16/20 07:26 02/16/20 07:26 Laboratory Results - last 24 hr 02/16/20 06:44: WBC 5.8, RBC 4.05 L, Hgb 12.3 L, Hct 38.6 L, MCV 95.3 H, MCH 30.5, MCHC 32.0, RDW 14.7, Plt Count 94 L, MPV 8.8, Neut % (Auto) 70.3, Lymph % (Auto) 20.7, [place] % (Auto) 6.7, Eos % (Auto) 1.7, Baso % (Auto) 0.5, Neut # (Auto) 4.1, Lymph # (Auto) 1.2, [place] # (Auto) 0.4, Eos # (Auto) 0.1, Baso # (Auto) 0.0 02/16/20 06:44: Sodium 136, Potassium 3.1 L, Chloride 101, Carbon Dioxide 30, Anion Gap 8.1, BUN 18, Creatinine 0.90, Estimated Creat Clear 54, Estimated GFR 80, Est GFR ( Amer) 97, Glucose 83, Calcium 8.6 I & O for Last 24 hours: Intake & Output 02/13/20 02/14/20 02/15/20 02/16/20 23:59 23:59 23:59 23:59 Intake Total 3514 / 3514 1156 / 1156 1300 / 1300 290 / 290 Output Total 775 / 775 3500 / 4700 1200 / 1200 Balance 2739 / 2739 -2344 / -3544 100 / 100 290 / 290 Weight 157 lb 4 oz 163 lb 1 oz 159 lb 1 oz 153 lb 6 oz Narrative: EKG today shows sinus bradycardia with a rate of 52. - Constitutional no acute distress, average body habitus, chronically ill appearing - *Routine HEENT Exam Head: Present: normocephalic, atraumatic Eye: Present: EOMI, PERRL ENT: Present: mucous membranes moist - *Routine Neck Exam Present: supple, full ROM, normal carotid upstroke. Absent: JVD, carotid bruit, lymphadenopathy - *Routine Respiratory Exam Present: CTA bilaterally - *Routine Cardiovascular Exam Present: Normal S1, Normal S2, bradycardia. Absent: murmur - *Routine Abdominal Exam Present: soft, normoactive bowel sounds. Absent: tenderness, distended - *Routine Extremities Exam Present: full ROM, pulses intact, normal capillary refill. Absent: cyanosis, clubbing, edema - *Routine Skin Exam Present: intact, warm. Absent: erythema, rash - *Routine Neurological Exam Present: alert, oriented X3, CN II-XII intact. Absent: sensory deficit, motor deficit Progress Note: A&P (1) Elevated troponin Status: Acute (2) Thrombocytopenia Status: Acute (3) UTI (urinary tract infection) Status: Acute (4) Acute delirium Status: Resolved (5) Renal insufficiency Status: Acute (6) Severe sepsis with acute organ dysfunction Status: Acute (7) Atrial fibrillation Status: Acute (8) Sinus bradycardia Status: Acute (9) PVD (peripheral vascular disease) Status: Acute (10) Hypertension Status: Chronic (11) Hyperlipidemia Status: Chronic Assessment and Plan for All Diagnoses:: Plan: 1. The patient was admitted to the hospital with altered mental status. He is being treated for a UTI and severe sepsis. Will defer management of this to his primary care provider. 2. The patient did have an
[2020-02-16 11:54] VITALS: PULSE 64; RESP 18; TEMP 36.7; O2SAT 95
[2020-02-16 12:00] VITALS: PULSE 50
--- NOTE | 2020-02-16 13:14 | HMH.DCSUM ---
General - General Admission date:: 02/11/20 Discharge date: 02/16/20 HPI HPI: this pt fell at home with reported change in mental status- he was transported to ed by ems- er EMS report pt family reports pt fell earlier today, they helped him up, pt was not c/o pain. Pt family reported that pt is not acting his normal. Pt speech is pt normal per EMS report. Pt has dried blood noted to R ayan. Pt denies presence of pain This is a 84-year-old male that presents via EMS due to altered mental status. Patient apparently had a mechanical fall earlier today however he denied any injury at that time other than the nosebleed. According to EMS patient's family had placed him back in bed. Over the course of the next 2 to 3 hours patient's mentation seems to vary from his baseline as such EMS was called for transport due to altered mental status with possibility of stroke. Upon arrival patient denies any complaints. He denies any injuries. Patient is however unoriented. Speech is slurred however EMS reports family endorses this is his baseline. Patient is alert currently only to person. Further subjective assessment limited given patient's mental status pt was admitted with acute uti Hospital Course Hospital Course: Laboratory Tests 02/11/20 02/11/20 02/11/20 16:26 16:26 16:26 WBC 6.0 RBC 4.47 L Hgb 13.4 L Hct 42.8 MCV 95.9 H MCH 30.1 MCHC 31.4 L RDW 15.0 Plt Count 126 L MPV 7.2 L Neut % (Auto) 93.0 H Lymph % (Auto) 4.2 L [place] % (Auto) 1.1 L Eos % (Auto) 1.2 Baso % (Auto) 0.6 Neut # (Auto) 5.6 Lymph # (Auto) 0.3 L [place] # (Auto) 0.1 Eos # (Auto) 0.1 Baso # (Auto) 0.0 Total Counted 100 Neutrophils % (Manual) 88 H Band Neutrophils % 2.0 Lymphocytes % (Manual) 9 L Monocytes % (Manual) 1 L Platelet Estimate Slight decrease RBC Morphology Normal Hypochromasia Macrocytosis VBG pH VBG pCO2 VBG pO2 VBG HCO3 VBG Total CO2 VBG O2 Saturation VBG Base Excess Sodium 139 Potassium 3.3 L Chloride 103 Carbon Dioxide 30 Anion Gap 9.3 BUN 19 Creatinine 1.60 H Estimated Creat Clear 31 Estimated GFR 41 L Est GFR ( Amer) 50 L Glucose 98 Lactate Calcium 9.8 Total Bilirubin 0.9 AST 34 ALT 18 Alkaline Phosphatase 77 Troponin I 0.09 H NT-Pro-B Natriuret Pep 4180 H Total Protein 7.3 Albumin 4.0 Globulin 3.3 H Albumin/Globulin Ratio 1.2 TSH 2.18 Urine Color Urine Appearance Urine pH Ur Specific [place] Urine Protein Urine Glucose (UA) Urine Ketones Urine Blood Urine Nitrate Urine Bilirubin Urine Urobilinogen Ur Leukocyte Esterase Urine RBC Urine WBC Ur Squamous Epith Cells Urine Bacteria Urine Opiates Screen Urine Methadone Screen Ur Barbituates Screen Ur Phencyclidine Scrn Ur Amphetamines Screen U Benzodiazepines Scrn Urine Cocaine Screen U Marijuana (THC) Screen Chlamy pneumoniae PCR Adenovirus (PCR) B. pertussis DNA (PCR) Coronavirus OC43 (PCR) Coronavirus HKU1 (PCR) Coronavirus 229E (PCR) SARS-CoV-2 (PCR) Coronavirus NL63 (PCR) Human Metapneumovir PCR Influenza A (H1) PCR Influ A (H1N1/09) PCR Influenza A (H3) PCR Influenza Type A (PCR) Influenza Type B (PCR) M. pneumoniae (PCR) Parainfluenza 1 (PCR) Parainfluenza 2 (PCR) Parainfluenza 3 (PCR) Parainfluenza 4 (PCR) RSV (PCR) Entero/Rhino (PCR) SARS-CoV-2 IgG Ab (Rapid) SARS-CoV-2 IgM Ab (Rapid) 02/11/20 02/11/20 02/11/20 16:26 16:26 16:58 WBC RBC Hgb Hct MCV MCH MCHC RDW Plt Count MPV Neut % (Auto) Lymph % (Auto) [place] % (Auto) Eos % (Auto) Baso % (Auto) Neut # (Auto) Lymph # (Auto) [place] # (Auto) Eos # (Auto) Baso # (Auto) T
--- NOTE | 2020-02-16 15:45 | PC.NURSE ---
THIS RN ENCOURAGE PATIENT TO GET UP TO CHAIR 2X DURING PATIENT STAY. PATIENT REFUSED. PATIENT ATTEMPTED TO FEED SELF FOR BREAKFAST AND LUNCH. WHILE FEEDING SELF, FOOD WOULD SPILL ONTO HIS GOWN. THIS RN OFFERED HELP AND PATIENT REFUSED. THIS RN PROVIDED D/C INFORMATION TO SPENSER ARRIOLA AT [facility]. NO OTHER CONCERNS AT THIS TIME.
== END 2020-02-16 15:10 ==
LOC: ER 17:29 → 2ND 17:40
PROVIDERS: Nurse Practitioner Family; Admitting Provider Emergency Medicine; Emergency Provider Emergency Medicine; PCP Emergency Medicine; Visit Provider Emergency Medicine
DX: N39.0 Urinary tract infection, site not specified (principal); R65.20 Severe sepsis without septic shock; Z72.0 Tobacco use; I10 Essential (primary) hypertension; J44.9 Chronic obstructive pulmonary disease, unspecified; D69.6 Thrombocytopenia, unspecified; I48.91 Unspecified atrial fibrillation; Z79.82 Long term (current) use of aspirin; Z79.899 Other long term (current) drug therapy; I49.5 Sick sinus syndrome; Z91.81 History of falling; R06.9 Unspecified abnormalities of breathing
CPT/HCPCS: 36415; 70371; 70450; 70551; 71045; 72170; 80048; 80053; 80305; 81001; 82803; 83605; 83880; 84443; 84484; 85007; 85025; 86328; 87040; 87086; 87088; 87186; 87581; 87633; 87798; 92610; 92611; 93005; 93306; 96365; 96366; 96367; 96375; 97110; 97162; 97166; 97530; 99284; G0378; J1335; J2405; U0003

== ENCOUNTER → 2022-01-13 06:59 | Outpatient (CLI) | payer MEDICARE, SELFPAY ==
[2022-01-13 18:36] LABS: Basophils # 0.1 K/mm3 (0-0.2); Eosinophils # 0.1 K/mm3 (0.0-0.4); Hematocrit 43.4 % (42.0-52.0); Hemoglobin 13.5 g/dL (14.1-18.0); Lymphocytes # 1.7 K/mm3 (0.7-4.5); Lymphocytes % 25.7 % (10-50); Mean Corpuscular HGB Conc 31.1 g/dL (31.8-35.4); Mean Corpuscular Hemoglobin 30.9 pg (27.0-31.2); Mean Corpuscular Volume 99.6 fl (80-94); Mean Platelet Volume 9.9 fl (7.4-10.4); Monocytes # 0.4 K/mm3 (0.1-1.0); Monocytes % 5.6 % (1.7-9.3); Neutrophils # 4.2 K/mm3 (1.8-7.8); Neutrophils % 64.7 % (37.0-80.0); Platelet Count 236 K/mm3 (142-424); Red Blood Count 4.36 M/mm3 (4.60-6.20); White Blood Count 6.5 K/mm3 (4.8-10.8)
[2022-01-13 20:28] LABS: Alanine Aminotransferase 13 U/L (12-78); Albumin Level 4.1 g/dl (3.5-5.0); Albumin/Globulin Ratio 1.2 (1.1-1.8); Alkaline Phosphatase 90 U/L (38-126); Anion Gap 16.2 mEq/L (5-15); Aspartate Amino Transferase 21 U/L (17-59); Bilirubin,Total 0.3 mg/dl (0.2-1.3); Blood Urea Nitrogen 16 mg/dl (9-20); Calcium 9.3 mg/dl (8.4-10.2); Carbon Dioxide 26 mmol/L (22.0-30.0); Chloride 101 mmol/L (98-107); Estimated Glomerular Filt Rate 71 ml/min (>60); GFR (African American) 86 ML/MIN (>60); Globulin 3.3 g/dL (1.3-3.2); Glucose 100 mg/dl (74-100); Potassium 4.2 mmoL/L (3.5-5.1); Sodium 139 mmol/L (136-145); Total Protein,Serum 7.4 g/dl (6.3-8.2)
[2022-01-13 20:45] LABS: Free T4 (Free Thyroxine) 1.55 ng/dl (0.78-2.19)
[2022-01-13 20:46] LABS: 25-OH Vitamin D, Total 26.8 ng/mL (30-100)
[2022-01-13 21:01] LABS: Prostate Specific Ag Screen 1.3 ng/ml (0.0-4.0); Thyroid Stimulating Hormone 3.06 uIU/mL (0.465-4.68)
== END ==
PROVIDERS: PCP Emergency Medicine; Visit Provider Emergency Medicine
DX: E78.5 Hyperlipidemia, unspecified (principal); N28.9 Disorder of kidney and ureter, unspecified; Z12.5 Encounter for screening for malignant neoplasm of prostate; E55.9 Vitamin D deficiency, unspecified
CPT/HCPCS: 80053; 82306; 84439; 84443; 85025; G0103

== ENCOUNTER 2022-04-09 13:52 | Observation (INO) | payer MEDICARE, SELFPAY ==
--- NOTE | 2022-04-09 13:58 | XR_ITS ---
FINAL REPORT CLINICAL HISTORY: ams COMPARISON: February 2020 FINDINGS: The heart size is normal. The mediastinum is within normal limits. There is mild bibasilar opacity. There is no pleural effusion. There is no pneumothorax. The bony thorax is intact. IMPRESSION: Mild bibasilar opacity favors atelectasis. Reviewed, Interpreted and Dictated by Wilfred Loza III, MD Transcribed by Curry Baker Authenticated and [facility]
--- NOTE | 2022-04-09 13:59 | HMH.EDGENADL ---
Discharge Plan Disposition Patient Disposition: Admitted As Inpatient Condition: Fair Clinical Impressions Clinical Impression: Failure to thrive Discharge ED Provider: Isadora Nelson General Adult HPI General Chief complaint: Recheck/Abnormal Lab/Rx Stated complaint: FAILURE TO THRIVE Time Seen by Provider: 04/09/22 14:00 Mode of Arrival: EMS Source of Information: Relative and EMS Limitations: Altered Mental Status History of Present Illness HPI narrative: Mr. Vizcaino is a 86 yo male w/ PMH significant for alcoholism per family, ams 2/2 to prior CVA's and dementia per son in law, afib, COPD presenting to the ED for concern for worsened delerium and failure to thrive. EMS arrived to scene and found the patient and his covered in feces with roaches. Family reports the LKN was Thursday. Patient is accompanied by his who is severely altered. The patient can answer simple questions and is alert to name however he thinks its 1937, family reports this is baseline for him. Patient denies any pain at this time. Patient able to report his had diarrhea for many days. Limited hx given current mentation. No focal neurological deficits on exam. Patient verbal. Of Note patients son reports that cleaning lady refused to come out for multiple weeks 2/2 to roaches being present in the home. MD complaint: failure to thrive Onset (ago): day(s) Related Data Home Medications Medication Instructions Recorded Confirmed aspirin 325 mg tablet 325 mg PO DAILY heart health 05/28/17 04/10/22 cholecalciferol (vitamin D3) 1,250 1,250 mcg PO WEEKLY Supplement 04/10/22 04/10/22 mcg (50,000 unit) capsule (Weekly-D) cholecalciferol (vitamin D3) 50 50 mcg PO DAILY Supplement 04/10/22 04/10/22 mcg (2,000 unit) capsule cilostazol 100 mg tablet 100 mg PO BID INTERMITTENT 04/10/22 04/10/22 CLAUDICATION pravastatin 40 mg tablet 40 mg PO DAILY Cholesterol 04/10/22 04/10/22 Allergies Allergy/AdvReac Type Severity Reaction Status Date / Time No Known Allergies Allergy Verified 01/13/22 13:12 [facility] Disclaimer: The information contained in this section may have been updated after the patient was seen, as this information can be updated by other users. Medical History Acute kidney failure Afib DIOR (acute kidney injury) Contracture of hand COPD (chronic obstructive pulmonary disease) Decreased functional mobility Dementia Falls HLD (hyperlipidemia) HTN (hypertension) Psoriasis PVD (peripheral vascular disease) Sepsis Stroke UTI (urinary tract infection) Wandering atrial pacemaker Weakness Social History Smoking Status: Current every day smoker tobacco type: cigarettes packs per day: 2 second hand exposure: Yes alcohol intake: never substance use type: denies use current occupational status: retired Travel in the last 8 weeks: None household members: spouse housing: house current occupational exposures/hazards: No caffeine: No ROS Obtained: Yes unobtainable due to mental status Physical Exam General General appearance: lethargic and cachectic Head Head exam: atraumatic and normal inspection Eye Eye exam: Present normal appearance and EOMI ENT ENT exam: Present normal oropharynx and mucous membranes dry Neck Neck exam: Present normal inspection and full ROM Chest Chest inspection: Present normal inspection and symmetric chest wall rise Respiratory Respiratory exam: Present normal lung sounds bilaterally Cardiovascular Cardiovascular exam: Present regular rate and normal rhythm Abdominal Exam Abdominal exam: Present soft and normal bowel sounds Extremities Exam Extremities exam: Present normal inspection and full ROM Back Exam Back exam: Present normal inspection and full ROM Neurological Exam Neurological exam: Present alert and other (no deficits, verbal. Pupils equal and reacative) P
[2022-04-09 14:00] VITALS: BP 157/70; PULSE 94; RESP 20; TEMP 36.9; O2SAT 98; BMI 25.7
--- NOTE | 2022-04-09 14:16 | ECG_ITS ---
APPROVED REPORT Exam: Resting ECG HR:85 bpm ECG Measurements Heart Rate 85 AXES QRSd 105 QRS 57 QT 367 T 44 QTc 409 Conclusion ATRIAL FIBRILLATION POSSIBLE INFERIOR MYOCARDIAL INFARCTION , PROBABLY OLD [30 ms Q WAVE IN II/aVF] ABNORMAL RHYTHM ECG UNCONFIRMED REPORT Electronically signed by : Owen Renteria MD 04/10/2022 20:17:38
[2022-04-09 14:20] LABS: Alanine Aminotransferase 14 U/L (12-78); Albumin Level 4.4 g/dl (3.5-5.0); Albumin/Globulin Ratio 1.3 (1.1-1.8); Alkaline Phosphatase 105 U/L (38-126); Anion Gap 12.2 mEq/L (5-15); Aspartate Amino Transferase 26 U/L (17-59); Bilirubin,Total 0.6 mg/dl (0.2-1.3); Blood Urea Nitrogen 25 mg/dl (9-20); Calcium 10.2 mg/dl (8.4-10.2); Carbon Dioxide 27 mmol/L (22.0-30.0); Chloride 107 mmol/L (98-107); Estimated Glomerular Filt Rate 38 ml/min (>60); GFR (African American) 46 ML/MIN (>60); Globulin 3.3 g/dL (1.3-3.2); Glucose 111 mg/dl (74-100); Potassium 4.2 mmoL/L (3.5-5.1); Sodium 142 mmol/L (136-145); Total Protein,Serum 7.7 g/dl (6.3-8.2)
[2022-04-09 14:21] LABS: Basophils # 0.1 K/mm3 (0-0.2); Basophils % 0.8 % (0.1-2.0); Eosinophils # 0.1 K/mm3 (0.0-0.4); Eosinophils % 1.3 % (0.1-12.0); Hematocrit 44.3 % (42.0-52.0); Hemoglobin 14.3 g/dL (14.1-18.0); Lymphocytes # 1.7 K/mm3 (0.7-4.5); Lymphocytes % 30.5 % (10-50); Mean Corpuscular HGB Conc 32.2 g/dL (31.8-35.4); Mean Corpuscular Hemoglobin 30.1 pg (27.0-31.2); Mean Corpuscular Volume 93.3 fl (80-94); Monocytes # 0.3 K/mm3 (0.1-1.0); Monocytes % 5.5 % (1.7-9.3); Neutrophils # 3.4 K/mm3 (1.8-7.8); Neutrophils % 61.9 % (37.0-80.0); Platelet Count 166 K/mm3 (142-424); Red Blood Count 4.75 M/mm3 (4.60-6.20); Red Cell Distribution Width 14.7 % (11.5-17.5); White Blood Count 5.5 K/mm3 (4.8-10.8)
[2022-04-09 14:36] LABS: Troponin I < 0.01 ng/ml (0.00-0.034)
[2022-04-09 14:37] VITALS: BMI 32.9
[2022-04-09 15:34] LABS: Coronavirus 19, PCR Not Detected (NotDetected); Influenza A, PCR Not Detected (NotDetected); Influenza B, PCR Not Detected (NotDetected)
[2022-04-09 17:23] LABS: Troponin I < 0.01 ng/ml (0.00-0.034)
--- NOTE | 2022-04-09 17:40 | PC.NURSE ---
ER doctor said that it was ok for the pt to eat.. called and got dietary to bring a tray for this pt
--- NOTE | 2022-04-09 18:05 | EXP.HP ---
History of Present Illness *Admission Date: 04/09/22 *Reason for visit:: Chief complaint: Weakness *History of present illness: The patient is accompanied by his of 61 years, brother and sister to [facility] emergency department for weakness. His is being evaluated in the ED as well. His past medical history significant for dementia, stroke x2, COPD with ongoing tobacco dependence and bilateral hand contractures. He reports that his became ill and he has not been eating or drinking as much. He describes weakness over the last few days. He denies associated chest pain, palpitations or acute headaches. He denies nausea, vomiting or diarrhea. He has identified diminished strength with transferring from his wheelchair to the commode. He denies acute loss of motor or sensory. His brother and sister assists with the history. In the ED he was evaluated and his creatinine was elevated to 1.7 his baseline is typically 1.0. His chest x-ray was consistent with COPD. [facility] Disclaimer: The information contained in this section may have been updated after the patient was seen, as this information can be updated by other users. Medical History (Updated 04/09/22 @ 18:14 by Richard Troncoso MD) Decreased functional mobility Weakness Social History Smoking Status: Current every day smoker tobacco type: cigarettes packs per day: 2 second hand exposure: Yes alcohol intake: never substance use type: denies use current occupational status: retired Travel in the last 8 weeks: None household members: spouse housing: house current occupational exposures/hazards: No caffeine: No Review of Systems Review of Systems Review of systems:: pertinent systems reviewed and negative unless documented below Meds Home Medications and Allergies Home Medications Medication Instructions Recorded Confirmed Type aspirin 325 mg tablet 325 mg PO DAILY heart health 05/28/17 01/13/22 History lisinopril 5 mg tablet 5 mg PO DAILY Hypertension 02/11/20 01/13/22 History cilostazol 100 mg tablet See Rx Instructions .Route 08/13/21 01/13/22 Rx .COMPLEX #60 tabs cholecalciferol (vitamin D3) 1,250 1,250 mcg PO WEEKLY #14 caps 01/15/22 Rx mcg (50,000 unit) capsule (Weekly-D) cholecalciferol (vitamin D3) 50 50 mcg PO DAILY #90 caps 01/15/22 Rx mcg (2,000 unit) capsule pravastatin 40 mg tablet See Rx Instructions .Route 01/23/22 Rx .COMPLEX #90 tabs New Prescriptions to Start Prescriptions: Allergies Allergy/AdvReac Type Severity Reaction Status Date / Time No Known Allergies Allergy Verified 01/13/22 13:12 Exam Data for Last 24 hours Vital signs and Labs for Last 24 Hours: Temp Pulse Resp BP Pulse Ox 98.4 F 94 H 20 157/70 H 98 04/09/22 14:00 04/09/22 14:00 04/09/22 14:00 04/09/22 14:00 04/09/22 14:00 Laboratory Results - last 24 hr 04/09/22 14:00: WBC 5.5, RBC 4.75, Hgb 14.3, Hct 44.3, MCV 93.3, MCH 30.1, MCHC 32.2, RDW 14.7, Plt Count 166, MPV 8.0, Neut % (Auto) 61.9, Lymph % (Auto) 30.5, [place] % (Auto) 5.5, Eos % (Auto) 1.3, Baso % (Auto) 0.8, Neut # (Auto) 3.4, Lymph # (Auto) 1.7, [place] # (Auto) 0.3, Eos # (Auto) 0.1, Baso # (Auto) 0.1 04/09/22 14:00: Sodium 142, Potassium 4.2, Chloride 107, Carbon Dioxide 27, Anion Gap 12.2, BUN 25 H, Creatinine 1.70 H, Estimated GFR 38 L, Est GFR ( Amer) 46 L, Glucose 111 H, Calcium 10.2, Total Bilirubin 0.6, AST 26, ALT 14, Alkaline Phosphatase 105, Troponin I < 0.01, Total Protein 7.7, Albumin 4.4, Globulin 3.3 H, Albumin/Globulin Ratio 1.3 04/09/22 15:09: SARS-CoV-2 (PCR) Not detected, Influenza A Untype (PCR) Not detected, Influenza Type B (PCR) Not detected 04/09/22 16:40: Troponin I < 0.01 I & O for Last 24 hours: Intake & Output 04/06/22 04/07/22 04/08/22 04/09/22 23:59 23:59 23:59 23:59 Weight 81.647 kg Constitutional Constitutional: no acute
[2022-04-09 19:28] VITALS: BMI 27.1
[2022-04-09 20:18] VITALS: BP 150/68; BP 152/68; PULSE 89; RESP 16; RESP 18; TEMP 36.6; O2SAT 98; O2SAT 99
--- NOTE | 2022-04-09 20:37 | PC.NURSE ---
pt arrived to floor via stretcher @ 2036
[2022-04-09 20:45] VITALS: BP 147/79; PULSE 88; RESP 18; TEMP 36.8; O2SAT 91
[2022-04-09 20:49] LABS: Troponin I < 0.01 ng/ml (0.00-0.034)
--- NOTE | 2022-04-09 20:56 | PC.NURSE ---
pt admitted to 216 from ER, ELMER Sebastian gave pt bath upon arrival to room
[2022-04-10] VITALS (7 sets, daily range): BP systolic 126–155; BP diastolic 52–88; PULSE 50–78; RESP 16–22; TEMP 36.4–37; O2SAT 93–100; BMI 28.1
[2022-04-10 06:33] LABS: Chloride 105 mmol/L (98-107); Sodium 139 mmol/L (136-145)
[2022-04-10 06:34] LABS: Potassium 4.4 mmoL/L (3.5-5.1)
[2022-04-10 06:37] LABS: Anion Gap 11.4 mEq/L (5-15); Blood Urea Nitrogen 21 mg/dl (9-20); Calcium 9.3 mg/dl (8.4-10.2); Carbon Dioxide 27 mmol/L (22.0-30.0); Creatinine Clearance Estimated 37 mL/min (50-200); Estimated Glomerular Filt Rate 48 ml/min (>60); GFR (African American) 58 ML/MIN (>60); Glucose 121 mg/dl (74-100)
[2022-04-10 06:42] LABS: Basophils % 0.7 % (0.1-2.0); Eosinophils # 0.1 K/mm3 (0.0-0.4); Eosinophils % 1.7 % (0.1-12.0); Hematocrit 39.3 % (42.0-52.0); Lymphocytes % 35.8 % (10-50); Mean Corpuscular HGB Conc 32.6 g/dL (31.8-35.4); Mean Corpuscular Hemoglobin 30.1 pg (27.0-31.2); Mean Corpuscular Volume 92.2 fl (80-94); Mean Platelet Volume 8.7 fl (7.4-10.4); Monocytes # 0.3 K/mm3 (0.1-1.0); Monocytes % 5.8 % (1.7-9.3); Neutrophils # 3.1 K/mm3 (1.8-7.8); Platelet Count 169 K/mm3 (142-424); Red Blood Count 4.26 M/mm3 (4.60-6.20); Red Cell Distribution Width 14.8 % (11.5-17.5); White Blood Count 5.5 K/mm3 (4.8-10.8)
[2022-04-10 08:30] LABS: Hemoglobin 12.8 g/dL (14.1-18.0)
--- NOTE | 2022-04-10 10:24 | HMH.OTEV ---
OT Inpatient Evaluation Rehab OT IP Evaluation Start: 04/09/22 17:51 Freq: ONCE Status: Complete Protocol: Document 04/10/22 10:17 JAQUAN (Rec: 04/10/22 10:24 JAUQAN [id number]) Rehab OT IP Assessment Subjective History The patient is accompanied by his of 61 years, brother and sister to [facility] emergency department for weakness. His is being evaluated in the ED as well. His past medical history significant for dementia, stroke x2, COPD with ongoing tobacco dependence and bilateral hand contractures. He reports that his became ill and he has not been eating or drinking as much. He describes weakness over the last few days. He denies associated chest pain, palpitations or acute headaches. He denies nausea, vomiting or diarrhea. He has identified diminished strength with transferring from his wheelchair to the commode. He denies acute loss of motor or sensory. His brother and sister assists with the history. In the ED he was evaluated and his creatinine was elevated to 1.7 his baseline is typically 1.0. His chest x-ray was consistent with COPD. Patient lives at home with . is also unwell and unable to provide care for patient at this time. Subjective I just want to stay in the bed. However Patient agreed to sit at EOB and completed standing tasks this date. Patient required Min A x 2 to complete supine->sit @ EOB and required Mod A x2 to complete EOB->stand. Patient stood <30 secs with needing Mod/Max
--- NOTE | 2022-04-10 10:31 | HMH.PTEV ---
Physical Therapy Evaluation Rehab PT IP Evaluation Start: 04/09/22 17:51 Freq: ONCE Status: Active Protocol: Document 04/10/22 10:22 ARLEN (Rec: 04/10/22 10:31 PHORNE [id number]) Subjective/History History History 86 yowm adm to [facility] with DIOR and general weakness. He has hx of dementia and generally decreased mobility. He lives with spouse who is his primary museum specialist and assists with all his ADLs at home. She is alos currently ill and unable to care for him. He uses a w/c for mobility primarily. Subjective Subjective Pt with no c/o this am. Rehab PT IP Eval Objective Appearance Patient Behavior Appropriate Patient Orientation Person,Place Difficulty following instructions none Speech Pattern Clear Ambulation Patient Able to Ambulate Yes Ambulation Observation IP General Gait Pattern Observation Shuffling Step Ambulation Distance (feet) 3 Ambulation Assistive Device None Ambulation Ability Minimal x 2 (25% assist) Balance Ability to Arise Able, uses arms to help Sitting Balance Steady, safe Standing Balance Steady, wide stance Dynamic Sitting Balance Ability Good Dynamic Standing Balance Ability Poor Transfers Bed Transfer Ability Minimal x 1 (25% assist) Chair Transfer Ability Minimal x 1 (25% assist) Sit to Stand Bed Transfer Ability Minimal x 1 (25% assist) Sit to Stand Chair Transfer Ability Minimal x 1 (25% assist) Rehab PT IP prob,goals,plan Problems Date of Evaluation: 04/10/22 PT IP Problems Transfers,Gait,Self care Rehab Potential Rehab Potential Good Plan PT Intervention Plan Transfers,Gait,Self care, Therapeutic Exercise PT Plan Frequency Daily Duration LOS Discharge Goals Bed Transfer Ability Contact Guard/Hand Hold Sit to Stand Chair Transfer Ability Contact Guard/Hand Hold Ambulation Distance (feet) 10 Discharge Plan PT Discharge Plan Pt is currently most appropriate for rehab placement, but could return home with 24 hr assist if mobility improves. G -code Required No Eval Complexity Eval Charge Codes 33622 - Moderate Complexity PHYSICIAN CERTIFICATION: I certify the specified therapy services for Salvatore Worley
--- NOTE | 2022-04-10 11:21 | HMH.SLAPHASI ---
Speech & Language Evaluation Speech/Language Aphasia Evaluation Start: 04/10/22 10:59 Freq: once Status: Complete Protocol: Document 04/10/22 10:59 DORETHAYESENIA (Rec: 04/10/22 11:20 DORETHAYESENIA [id number]) Aphasia Assessment/Goals/Plan Assessment Date of Evaluation: 04/10/22 Evaluation Type Initial Certification Assessment/Problems Motor speech assessed per MD order. Does Patient Qualify for Service Yes Qualify/Failure Comment Based on clinical observation and assessment results, pt would benefit from skilled speech therapy services 2x/ week until discharge to address motor speech and oral motor skills. Plan Pt will be seen # times/week 2 for # weeks 4 Anticipate reaching STG in # weeks 2 Anticipate reaching LTG in # weeks 4 Pt/Guardian verbally ack understanding Yes of dx/prognosis/goals G -code Required No STG-Intell/Buccal/Labial Strength Intelligibility 75 #Intelligibility Drills Performed/Sesson 10 Labial Strength 70 # Times Exercises Perf/Session 10 Buccal Strength 70 # Times Exercises Perf/Session 10 Prison Goals Increase oral motor tone to improve Yes: 75% intelligibility. Education Instructions provided Discussed assessment results and POC with pt and care management both of which expressed understanding. Pt/Caregiver Able to Recall Information Able to recall/restate Reinforcement needed No Speech & Language HPI History Present Illness Description of Patient Problem Pt seen at ER following reports of weakness.Primary medical history significant for dementia, stroke x2, COPD with ongoing tobacco dependence and bilateral hand contractures. Pt/Caregiver Concerns Pt reported concerns with speech intelligbility and reported that he previously has seen speech to address motor speech concerns following strokes. Rehab Services Assessed Speech therapy Language Primary Language Hungarian Aphasia Evaluations Communication Speech Intelligibility Pt was assessed for speech intelligibility and motor speech skill
--- NOTE | 2022-04-10 11:29 | SW/DCPLANNER ---
Addendum entered by Padmaja Cuenca 04/11/22 13:29: This patient has been accept to [facility] and will discharge today. I have updated , Libra valdez/ [facility] and patient's family. Addendum entered by Padmaja Cuenca 04/11/22 09:48: Libra valdez/ [facility] is meeting with patient's family today. I have updated Libra that patient is medically stable for discharge today. Original Note: I spoke with patient's son (Simon) regarding plans once patient is medically stable for discharge. Simon stated that patient's home is in deplorable conditions and patient will not be able to return there. Simon stated that they have recently spoke with [facility] regarding placement. I did follow up with Libra at [facility] whom is willing to review patient information. I have faxed all patient information to Libra valdez/ [facility]. Discharge date is unknown at this time. I will continue to follow up with patient, family and [facility].
--- NOTE | 2022-04-10 14:28 | HMH.PHAINT1 ---
Pharmacy Intervention Comments: MEDICATION RECONCILIATION COMPLETED ON PATIENT USING EXTERNAL FILL HISTORY FROM PHARMACY. -LALIT ALVAREZ, JOHNSOND
--- NOTE | 2022-04-10 17:01 | PC.NURSE ---
No acute changes noted this shift, up to chair for several hours today, remains on RA, alert and oriented x3, denies any cp or soa, appetite fair, no s/s of distress noted, vss, bed in lowest position with call light in reach.
--- NOTE | 2022-04-10 17:14 | EXP.PN ---
Subjective *Date: 04/10/22 *Time: 17:14 Interval history: Date of service 04/10/2022 I am accompanied by several members of the multidisciplinary rounds team. The patient reports no acute symptomatology. Nursing staff report that he remains afebrile with stable vital signs and saturating appropriately on room air. Ancillary services are due to see him including speech therapy. Case management is assisting with next site of care. We have reviewed and discussed his morning labs which identify an improved creatinine and stable CBC. His urine culture has grown E. coli greater than 100,000 that is pansensitive. He has been continued on cephalosporin therapy. Exam Data for Last 24 hours Vital signs and Labs for Last 24 Hours: Temp Pulse Resp BP Pulse Ox 98.5 F 54 L 18 155/53 H 96 04/10/22 15:26 04/10/22 15:26 04/10/22 15:26 04/10/22 15:26 04/10/22 15:26 Laboratory Results - last 24 hr 04/09/22 16:40: Troponin I < 0.01 04/09/22 20:14: Troponin I < 0.01 04/10/22 05:45: WBC 5.5, RBC 4.26 L, Hgb 12.8 L D, Hct 39.3 L, MCV 92.2, MCH 30.1, MCHC 32.6, RDW 14.8, Plt Count 169, MPV 8.7, Neut % (Auto) 56.0, Lymph % (Auto) 35.8, [place] % (Auto) 5.8, Eos % (Auto) 1.7, Baso % (Auto) 0.7, Neut # (Auto) 3.1, Lymph # (Auto) 2.0, [place] # (Auto) 0.3, Eos # (Auto) 0.1, Baso # (Auto) 0.0 04/10/22 05:45: Sodium 139, Potassium 4.4, Chloride 105, Carbon Dioxide 27, Anion Gap 11.4, BUN 21 H, Creatinine 1.40 H, Estimated Creat Clear 37, Estimated GFR 48 L, Est GFR ( Amer) 58 L D, Glucose 121 H, Calcium 9.3, Magnesium 2.0 I & O for Last 24 hours: Intake & Output 04/07/22 04/08/22 04/09/22 04/10/22 23:59 23:59 23:59 23:59 Intake Total 1974 Output Total 100 / 100 350 / 350 Balance -100 / -100 1625 / 1625 Weight 66.95 kg 69.4 kg Constitutional Constitutional: no acute distress *Routine HEENT Exam Head: Present normocephalic Eye: Present EOMI and PERRL ENT: Present mucous membranes moist *Routine Neck Exam Neck: Present supple; Absent lymphadenopathy *Routine Respiratory Exam Respiratory: Present CTA bilaterally *Routine Cardiovascular Exam Cardiovascular: Present RRR *Routine Abdominal Exam Abdominal: Present soft and normoactive bowel sounds; Absent tenderness *Routine Extremities Exam Extremities: Absent cyanosis, clubbing or edema *Routine Skin Exam Skin: Present warm; Absent rash *Routine Neurological Exam Neurological: Present alert and oriented X3 Assessment and Plan *Assessment and plan (1) DIOR (acute kidney injury): Status: Acute Category: Medical Code(s): N17.9 - Acute kidney failure, unspecified (2) UTI (urinary tract infection): Status: Acute Qualifiers: Hematuria presence: with hematuria Urinary tract infection type: acute cystitis Qualified Code(s): N30.01 - Acute cystitis with hematuria Category: Medical Code(s): N39.0 - Urinary tract infection, site not specified (3) Hypertension: Status: Chronic Qualifiers: Hypertension type: essential hypertension Qualified Code(s): I10 - Essential (primary) hypertension Category: Medical Code(s): I10 - Essential (primary) hypertension (4) COPD (chronic obstructive pulmonary disease): Status: Acute Category: Medical Code(s): J44.9 - Chronic obstructive pulmonary disease, unspecified (5) Tobacco use: Status: Acute Category: Social Hx Code(s): Z72.0 - Tobacco use (6) Dementia: Status: Acute Category: Medical Code(s): F03.90 - Unspecified dementia, unspecified severity, without behavioral disturbance, psychotic disturbance, mood disturbance, and anxiety Plan DIOR-Baseline creatinine 1.0, most likely prerenal, fluid resuscitation, trend electrolytes and creatinine, avoid NSAIDs E. coli UTI?fluid resuscitation, cefdinir 300 mg p.o. twice daily for 5 days Hypertension-routine blood pressure monitoring, beta-blo
--- NOTE | 2022-04-10 21:12 | PC.NURSE ---
Pt bradycardic with HR in 50s. Ras Lundberg HOSPITALITY HOUSE SUPERVISOR notified. Hold PM metoprolol. Orders carried out.
[2022-04-11] VITALS: BP 156/82; PULSE 52; RESP 18; TEMP 36.8; O2SAT 98
[2022-04-11 03:33] VITALS: BP 145/71; PULSE 51; RESP 16; TEMP 36.9; O2SAT 96
--- NOTE | 2022-04-11 04:30 | PC.NURSE ---
Pt given bath by staff at beginning of shift. He is alert to self and place. Has not stated any complaints this shift. New IV placed to RAC #20. Metoprolol held due to BR bradycardic. Continues to be bradycardic this AM as low as 51. Call light within reach. Safety measures in place.
[2022-04-11 05:00] VITALS: BMI 27.9
[2022-04-11 06:15] VITALS: PULSE 58; PULSE 62
[2022-04-11 06:42] LABS: Chloride 106 mmol/L (98-107); Sodium 139 mmol/L (136-145)
[2022-04-11 06:43] LABS: Potassium 4.7 mmoL/L (3.5-5.1)
[2022-04-11 06:45] LABS: Blood Urea Nitrogen 12 mg/dl (9-20); Creatinine Clearance Estimated 43 mL/min (50-200); Estimated Glomerular Filt Rate 57 ml/min (>60); GFR (African American) 69 ML/MIN (>60)
[2022-04-11 06:46] LABS: Anion Gap 10.7 mEq/L (5-15); Calcium 9.2 mg/dl (8.4-10.2); Carbon Dioxide 27 mmol/L (22.0-30.0); Glucose 111 mg/dl (74-100)
[2022-04-11 08:00] VITALS: BP 144/64; PULSE 60; RESP 18; TEMP 36.7; O2SAT 95; O2SAT 98
--- NOTE | 2022-04-11 11:02 | DIET.NUTRFU ---
Addendum entered by Wanda Nielsen RD, LD 04/11/22 11:04: Discharge is [place], they will continue to follow nutritional status with diet changes. Original Note: Patient sounded wet this morning during rounds. Nursing also indicated she ordered WIDE AREA NETWORK ADMINISTRATOR eval for swallowing. Diet downgraded to ground with nectar thick. Meal intake has been poor supplements were added. Possible discharge later today
--- NOTE | 2022-04-11 11:41 | HMH.SLDYSPHA ---
Speech & Language Evaluation Speech/Language Dysphagia Evaluation Start: 04/11/22 11:14 Freq: ONCE Status: Active Protocol: Document 04/11/22 11:20 JOSE (Rec: 04/11/22 11:41 [id number] Dysphagia Assess/Goals/Plan Assessment Date of Evaluation: 04/11/22 Evaluation Type Initial Certification Assessment/Problems Pt was assessed for a clinical bedside swallow evaluation following concerns with choking/swallowing. Does Patient Qualify for Service Yes Qualify/Failure Comment Based on assessment results, further evaluation (MBSS) is needed 2' overt s/sxs of aspiration on thin liquids. MURAL ARTIST will continue to f/u and provide education of aspiration and aspiration PNA risks with pt, as well as f/u for diet tolerance. Recommendations PHYSICIAN CERTIFICATION: The specified therapy services are required, authorized, and reviewed every 30 days. Pt will be seen # times/week 2 for # weeks 4 Diet Recommendations Mechanical Soft Liquid Type Recommendations [place] Consistency SL Swallow Guidelines High aspiration risk Dysphagia Swallow Precautions/Strategies Sitting Upright (90 deg),No Straw,Small Bites and Sips, Alternate Liquids/Solids Plan Anticipate reaching STG in # weeks 2 Anticipate reaching LTG in # weeks 4 Pt/Guardian verbally ack understanding Yes of dx/prognosis/goals G -code Required No STG-Other Comment/Non-Specific Pt will exhibit understanding of risks of aspiration and complete MBSS to rule out aspiration of diet. Pt will demonstrate diet tolerance with 100% accuracy based on clinical observation. Coin Dealer Goals Diet mechanical soft with Liquids [place] Thick Education Instructions provided CSE assessments, overt s/sxs of aspiration, and attempt to educate on risk of aspiration and potentially aspiration PNA discussed with care management, nursing, and pt all of which expressed understanding. Pt/Caregiver able to recall information Able to recall/restate Reinforcement needed
[2022-04-11 12:00] VITALS: BP 157/74; PULSE 63; RESP 20; TEMP 36.7; O2SAT 98
--- NOTE | 2022-04-11 14:07 | EXP.DC.SUM ---
General Admission date:: 04/09/22 Discharge date: 04/11/22 HPI HPI HPI: The patient is accompanied by his of 61 years, brother and sister to [facility] emergency department for weakness. His is being evaluated in the ED as well. His past medical history significant for dementia, stroke x2, COPD with ongoing tobacco dependence and bilateral hand contractures. He reports that his became ill and he has not been eating or drinking as much. He describes weakness over the last few days. He denies associated chest pain, palpitations or acute headaches. He denies nausea, vomiting or diarrhea. He has identified diminished strength with transferring from his wheelchair to the commode. He denies acute loss of motor or sensory. His brother and sister assists with the history. In the ED he was evaluated and his creatinine was elevated to 1.7 his baseline is typically 1.2. His chest x-ray was consistent with COPD. Hospital Course Hospital Course Hospital Course: The patient was admitted to the medical surgical floor. He was provided with IV fluid resuscitation and his laboratory studies were trended. Urine culture was acquired and he was started on IV antibiotic therapy that was transitioned to p.o. His laboratory studies identified improvement. Nursing staff reported that he remained afebrile with stable vital signs and saturated appropriately on room air throughout his stay. His creatinine on admission was 1.7 and on discharge returned to baseline at 1.2. Case management assisted with discharge planning and the patient's care will be transitioned to [facility] long term facility. He will be discharged on a few days of antibiotic therapy for his positive urine culture identifying E. coli sensitive to cephalosporins. I spent 35 minutes in [id number] time with the patient, case management and nursing staff concerning the discharge process. We discussed the admitting diagnoses and hospital course. We discussed identified improvement and the patient's desire to be discharged. We reviewed inpatient studies and imaging. The patient voiced understanding on the importance of follow-up with his primary care provider and specialist(s). The patient plans to be compliant with the medication regimen prescribed and follow-up appointments. He understands that he can return to the emergency department with any sudden changes or concerns. Exam Data for Last 24 hours Vital signs and Labs for Last 24 Hours: Temp Pulse Resp BP Pulse Ox 98.0 F 63 20 157/74 H 98 04/11/22 12:00 04/11/22 12:00 04/11/22 12:00 04/11/22 12:00 04/11/22 12:00 Laboratory Results - last 24 hr 04/11/22 06:02: Sodium 139, Potassium 4.7, Chloride 106, Carbon Dioxide 27, Anion Gap 10.7, BUN 12 D, Creatinine 1.20, Estimated Creat Clear 43, Estimated GFR 57 L, Est GFR ( Amer) 69, Glucose 111 H, Calcium 9.2 I & O for Last 24 hours: Intake & Output 04/08/22 04/09/22 04/10/22 04/11/22 23:59 23:59 23:59 23:59 Intake Total 2095 / 2215 1320 / 1320 Output Total 100 / 100 350 / 350 0 / 0 Balance -100 / -100 1745 / 1865 1320 / 1320 Weight 66.95 kg 69.4 kg 68.946 kg Constitutional Constitutional: no acute distress *Routine HEENT Exam Head: Present normocephalic Eye: Present EOMI and PERRL ENT: Present mucous membranes moist *Routine Neck Exam Neck: Present supple; Absent lymphadenopathy *Routine Respiratory Exam Respiratory: Present CTA bilaterally *Routine Cardiovascular Exam Cardiovascular: Present RRR *Routine Abdominal Exam Abdominal: Present soft and normoactive bowel sounds; Absent tenderness *Routine Extremities Exam Extremities: Absent cyanosis, clubbing or edema *Routine Skin Exam Skin: Present warm; Absent rash *Routine Neurological Exam Neurological: Present alert and oriented X3 Results Data Completed and Pending Labs on day of discharge: Labs from last 24 hours 04/11/22 06:02 So
--- NOTE | 2022-04-11 16:32 | PC.NURSE ---
Notified pt son that pt was on his way to [facility] at 1630
--- NOTE | 2022-04-14 14:18 | CARE MANAGER ---
Called and spoke with staff at [facility], who stated that patient is doing well and has no known needs at this time.
== END 2022-04-11 16:20 ==
LOC: ER 14:19 → 2ND 20:18
PROVIDERS: Admitting Provider Family Medicine; Emergency Provider Student in an Organized Health Care Education/Training Program; PCP Emergency Medicine; Visit Provider Family Medicine
DX: N17.9 Acute kidney failure, unspecified (principal); I10 Essential (primary) hypertension; J44.9 Chronic obstructive pulmonary disease, unspecified; F17.210 Nicotine dependence, cigarettes, uncomplicated; F03.90 Unspecified dementia, unspecified severity, without behavioral disturbance, psychotic disturbance, mood disturbance, and anxiety; N39.0 Urinary tract infection, site not specified; Z79.899 Other long term (current) drug therapy; Z20.822 Contact with and (suspected) exposure to COVID-19; I69.328 Other speech and language deficits following cerebral infarction; I69.311 Memory deficit following cerebral infarction; R62.7 Adult failure to thrive; Z68.28 Body mass index [BMI] 28.0-28.9, adult; Z59.1 Inadequate housing
CPT/HCPCS: G0378; 36415; 71045; 80048; 80053; 83735; 84484; 85025; 92507; 92523; 92610; 93005; 94640; 97110; 97162; 97165; 97530; 99285; C9803; U0003; U0005

== ENCOUNTER → 2022-04-21 12:48 | Outpatient (CLI) | payer MEDICARE, SELFPAY ==
--- NOTE | 2022-04-21 12:52 | FL_ITS ---
FINAL REPORT CLINICAL HISTORY: . dysphagia, fluoro time 2:24 FINDINGS: MODIFIED BARIUM SWALLOW History: Dysphagia FINDINGS: Fluoroscopy was provided for the speech pathologist to evaluate the swallowing mechanism. The patient was given several different consistencies of barium while the swallow was visualized fluoroscopically. The report of the speech pathologist should be consulted prior to making dietary decisions. FLUOROSCOPY TIME: 2 minutes 24 seconds IMPRESSION: Modified barium swallow under fluoroscopic guidance. Please see the report of the speech pathologist for Dietary recommendations. Reviewed, Interpreted and Dictated by Wilfred Loza III, MD Transcribed by HEIDE Hughes Authenticated and [facility]
--- NOTE | 2022-04-21 15:14 | HMH.SLMBS2 ---
Speech & Language Evaluation Speech/Language Mod Barium Swallow Start: 04/21/22 14:41 Freq: once Status: Complete Protocol: Document 04/21/22 14:41 EDMUNDONATALIA (Rec: 04/21/22 15:13 KATARINA [id number]) General Information General Current Food Consistency Mechanical Soft,Amanda Liquids Dentition Edentulous Oxygen Status Room Air Ability to Follow Directions Good Communication Ability Mild Impairment MBS Recommendations Diet Dietary Recommendations Dysphagia Mechanical Soft, Chopped Meats,Thin Liquids Treatment/Strategies Strategy/Precaution Recommend Sitting Upright (90 deg), Double Swallow,Small Bites and Sips,Alternate Liquids/Solids Mod Barium Swallow Impressions Summary and Impressions Oral Phase Impression Mild Impairment Oral Phase Summary Mild oral dysphagia. Premature spillage to the pyrifom sinuses 2' decreased back of tognue control. Prolonged mastication noted with regular mechanical soft and regular solids. No significant residue noted. Pharyngeal Phase Impression Mild Impairment Pharyngeal Phase Summary Mild pharyngeal dysphagia. Aspiration of nectar thick liquids x1. Pt was not sensate to aspiration and was cued to cough, which cleared material out of the airway. There was flash penetration intermittently with thins, however, material cleared from the laryngeal vestibule upon completion of the pharyngeal swallow. Mild vallecular residue with all trials 2' reduced BOT retraction and decreased pharyngeal constriction. Pt significantly reduces residue with a secondary swallow. Speech/Language MBS Assessment/Goals/Plan Assessment Date of Evaluation: 04/21/22 Evaluation Type Initial Certification Assessment/Problems Difficulty swallowing per MD order. Does Patient Qualify for Service Yes Qualify/Failure Comment Based on the MBSS, pt would benefit from skilled speech therapy services at his
== END ==
PROVIDERS: PCP Emergency Medicine; Visit Provider Emergency Medicine
DX: R13.10 Dysphagia, unspecified (principal)
CPT/HCPCS: 70371; 92611

== ENCOUNTER → 2022-05-06 16:27 | Outpatient (CLI) | payer MEDICARE, SELFPAY | PROVIDERS: PCP Emergency Medicine; Visit Provider Emergency Medicine | DX: U07.1 COVID-19 (principal) | CPT/HCPCS: C9803; U0003; U0005 ==

== ENCOUNTER → 2023-03-11 23:28 | Outpatient (CLI) | payer MEDICARE, SELFPAY ==
[2023-03-11 19:28] LABS: Basophils % 0.5 % (0.1-2.0); Eosinophils # 0.1 K/mm3 (0.0-0.4); Eosinophils % 1.5 % (0.1-12.0); Hemoglobin 13.7 g/dL (14.1-18.0); Lymphocytes # 1.3 K/mm3 (0.7-4.5); Lymphocytes % 28.7 % (10-50); Mean Corpuscular HGB Conc 34.1 g/dL (31.8-35.4); Mean Corpuscular Volume 93.8 fl (80-94); Mean Platelet Volume 9.7 fl (7.4-10.4); Monocytes # 0.3 K/mm3 (0.1-1.0); Monocytes % 5.9 % (1.7-9.3); Neutrophils # 2.9 K/mm3 (1.8-7.8); Neutrophils % 63.5 % (37.0-80.0); Platelet Count 150 K/mm3 (142-424); Red Blood Count 4.26 M/mm3 (4.60-6.20); Red Cell Distribution Width 15.2 % (11.5-17.5); White Blood Count 4.5 K/mm3 (4.8-10.8)
[2023-03-11 20:26] LABS: Alanine Aminotransferase 14 U/L (12-78); Albumin/Globulin Ratio 1.3 (1.1-1.8); Alkaline Phosphatase 89 U/L (38-126); Aspartate Amino Transferase 26 U/L (17-59); Bilirubin,Total 0.5 mg/dl (0.2-1.3); Blood Urea Nitrogen 20 mg/dl (9-20); Calcium 9.5 mg/dl (8.4-10.2); Carbon Dioxide 24 mmol/L (22.0-30.0); Chloride 100 mmol/L (98-107); Chol/HDL Ratio 3.4 (1-3.5); Cholesterol 141 mg/dl (140-200); Estimated Glomerular Filt Rate 52 ml/min (>60); GFR (African American) 63 ML/MIN (>60); Globulin 3.1 g/dL (1.3-3.2); Glucose 89 mg/dl (74-100); HDL Cholesterol 42 mg/dl (40-60); Sodium 135 mmol/L (136-145); Total Protein,Serum 7.1 g/dl (6.3-8.2); Triglycerides 103 mg/dl (30-150); VLDL Cholesterol 21 mg/dL (0-40)
[2023-03-11 20:38] LABS: Direct LDL Cholesterol 77.06 mg/dL (100-129)
[2023-03-11 20:42] LABS: 25-OH Vitamin D, Total 86.9 ng/mL (30-100)
[2023-03-11 21:03] LABS: Prostate Specific Ag Screen 0.5 ng/ml (0.0-4.0)
== END ==
PROVIDERS: PCP Emergency Medicine; Visit Provider Emergency Medicine
DX: I10 Essential (primary) hypertension (principal); E55.9 Vitamin D deficiency, unspecified; Z12.5 Encounter for screening for malignant neoplasm of prostate; Z68.25 Body mass index [BMI] 25.0-25.9, adult; Z72.0 Tobacco use
CPT/HCPCS: 80053; 80061; 82306; 85025; G0103

== ENCOUNTER 2023-06-02 11:46 | Observation (INO) | payer MEDICARE, MEDICAID, SELFPAY ==
[2023-06-02] VITALS (9 sets, daily range): BP systolic 104–148; BP diastolic 51–97; PULSE 51–125; RESP 16–37; TEMP 36.5–36.8; O2SAT 84–100; BMI 21.2; BMI 21.6
--- NOTE | 2023-06-02 11:50 | PC.NURSE ---
pt placed on 2L NC tolerating well o2 noted at 95%.
--- NOTE | 2023-06-02 11:51 | XR_ITS ---
FINAL REPORT CLINICAL HISTORY: CP..soa COMPARISON: 02/14/2020 FINDINGS: No acute pulmonary opacity is present. Changes of emphysema are present. There is no evidence of effusion or pneumothorax. Mediastinum is unremarkable. Heart size is normal. IMPRESSION: No acute abnormality. Changes of emphysema. Reviewed, Interpreted and Dictated by Ras Morris MD Transcribed by Jessica Jordan Authenticated and [facility]
--- NOTE | 2023-06-02 11:53 | ED_ITS ---
Discharge Plan Disposition Patient Disposition: Admitted Condition: Fair Chief Complaint: Shortness of Breath/Dyspnea Prescriptions Prescriptions: No Action Debrox 6.5 % drops 5 drp otic (ear) DAILY 4 Days Qty: 15 0RF docusate sodium 100 mg capsule See Rx Instructions .ROUTE .COMPLEX Qty: 90 0RF Dose Instruction: TAKE 1 CAPSULE BY MOUTH ONCE DAILY Rx Instructions: TAKE 1 CAPSULE BY MOUTH ONCE DAILY pravastatin 40 mg tablet See Rx Instructions .ROUTE .COMPLEX Qty: 90 0RF Dose Instruction: TAKE 1 TABLET BY MOUTH ONCE DAILY Rx Instructions: TAKE 1 TABLET BY MOUTH ONCE DAILY aspirin 81 mg tablet,delayed release (DR/EC) See Rx Instructions .ROUTE .COMPLEX Qty: 90 0RF Dose Instruction: TAKE 1 TABLET BY MOUTH ONCE DAILY Rx Instructions: TAKE 1 TABLET BY MOUTH ONCE DAILY cholecalciferol (vitamin D3) 50 mcg (2,000 unit) capsule See Rx Instructions .ROUTE .COMPLEX Qty: 90 0RF Dose Instruction: TAKE 1 CAPSULE BY MOUTH ONCE DAILY Rx Instructions: TAKE 1 CAPSULE BY MOUTH ONCE DAILY irbesartan 75 mg tablet See Rx Instructions .ROUTE .COMPLEX Qty: 90 0RF Dose Instruction: TAKE 1 TABLET BY MOUTH ONCE DAILY Rx Instructions: TAKE 1 TABLET BY MOUTH ONCE DAILY metoprolol tartrate 25 mg tablet See Rx Instructions .ROUTE .COMPLEX Qty: 180 0RF Dose Instruction: TAKE 1 TABLET BY MOUTH TWICE DAILY Rx Instructions: TAKE 1 TABLET BY MOUTH TWICE DAILY Clinical Impressions Clinical Impression: Adult failure to thrive Discharge ED Provider: Kimmie Rodriguez General Adult HPI General Chief complaint: Shortness of Breath/Dyspnea Stated complaint: Failure to thrive Time Seen by Provider: 06/02/23 11:50 History of Present Illness HPI narrative: Patient has a PMHx significant for CKD, atrial fibrillation, COPD, hyperlipidemia, hypertension, peripheral vascular disease, CVA who presents to the ED with complaints of failure to thrive. EMS was called to scene by family given failure to thrive. Patient has reportedly been lying in bed for the past 2 days, limited p.o. intake. Patient has not had any acute sick symptoms such as nausea vomiting or diarrhea, but on EMS arrival, the patient was soiled in feces and urine. , who was on scene, noted that the patient has been getting weaker and weaker over the past several weeks to months and is now time for long-term. Related Data Previous Rx's Medication Instructions Recorded docusate sodium 100 mg capsule See Rx Instructions .Route 10/31/22 .COMPLEX #90 caps pravastatin 40 mg tablet See Rx Instructions .Route 02/24/23 .COMPLEX #90 tabs carbamide peroxide 6.5 % ear drops 5 drp otic (ear) DAILY 4 days #15 03/11/23 (Debrox) mL aspirin 81 mg tablet,delayed See Rx Instructions .Route 04/06/23 release .COMPLEX #90 tabs cholecalciferol (vitamin D3) 50 See Rx Instructions .Route 04/06/23 mcg (2,000 unit) capsule .COMPLEX #90 caps irbesartan 75 mg tablet See Rx Instructions .Route 04/06/23 .COMPLEX #90 tabs metoprolol tartrate 25 mg tablet See Rx Instructions .Route 04/06/23 .COMPLEX #180 tabs Allergies Allergy/AdvReac Type Severity Reaction Status Date / Time No Known Allergies Allergy Verified 03/11/23 14:55 [facility] Disclaimer: The information contained in this section may have been updated after the patie nt was seen, as this information can be updated by other users. Medical History Acute kidney failure Afib DIOR (acute kidney injury) Contracture of hand COPD (chronic obstructive pulmonary disease) Decreased functional mobility Dementia Falls HLD (hyperlipidemia) HTN (hypertension) Psoriasis PVD (peripheral vascular disease) Sepsis Stroke UTI (urinary tract infection) Wandering atrial pacemaker Weakness Social History Smoking Status: Current every day smoker tobacco type: cigarettes packs per day: 2 second hand exposure: Yes alcohol intake: never substance use type: denies use current occupational status: retired Travel in the last 8 weeks: None household members: spouse housing: house current occupational exposures/hazards: No caffeine: No ROS Obtained: Yes All systems reviewed & no additional complaints except as documented Physical Exam General General appearance: alert and cachectic Head Head exam: atraumatic, normocephalic and normal inspection Eye Eye exam: Present normal appearance, PERRL and EOMI; Absent scleral icterus or nystagmus ENT ENT exam: Present normal exam, mucous membranes moist and normal external ear exam Neck Neck exam: Present normal inspection, full ROM and trachea midline Chest Chest inspection: Present normal inspection and symmetric chest wall rise; Absent tenderness Respiratory Respiratory exam: Present normal lung sounds bilaterally and wheezes; Absent respiratory distress or accessory muscle use Cardiovascular Cardiovascular exam: Present tachycardia and irregular rhythm Abdominal Exam Abdominal exam: Present soft; Absent distention, tenderness, guarding, rebound, rigidity, trauma, ascites or pulsatile mass exam: Present deferred Extremities Exam Extremities exam: Present normal inspection and full ROM; Absent tenderness Back Exam Back exam: Present normal inspection and full ROM; Absent tenderness Neurological Exam Neurological exam: Present alert, oriented X3 and normal gait; Absent motor se nsory deficit Psychiatric Psychiatric exam: Present normal affect and normal mood Skin Skin exam: Present warm, dry and normal color Medical Decision Making Medical Records Medical records reviewed: Yes I reviewed the patient's medical records. [place] Inquiry Pt receiving controlled substance: No Vital Signs: 06/02/23 11:50 06/02/23 12:00 06/02/23 12:31 Temperature 98.1 F Temperature Source Oral Pulse Rate 106 H Pulse Rate [Left Radial] 125 H Respiratory Rate 22 24 37 H Blood Pressure 148/88 H 138/83 Blood Pressure [Right Arm] 148/88 H Blood Pressure Mean [Right Arm] 108 Blood Pressure Source [Right Arm] Automatic Cuff Blood Pressure Position [Right Arm] Sitting 02 Sat by Pulse Oximetry 84 L 100 100 Oxygen Delivery Method Room Air Room Air Room Air Lab Data Lab results reviewed: Yes I reviewed the patient's lab results. Lab Results 06/02/23 11:50: VBG pH 7.33, VBG pCO2 49.9, VBG pO2 31.7, VBG HCO3 25.5, VBG Total CO2 27.0, VBG O2 Saturation 55.1, VBG Base Excess -0.5 06/02/23 12:00: WBC 6.1, RBC 4.73, Hgb 16.5, Hct 43.6, MCV 92.2, MCH 35.0 H, MCHC 37.9 H, RDW 15.5, Plt Count 148, MPV 8.9, Neut % (Auto) 75.9, Lymph % (Auto) 17.7, [place] % (Auto) 5.2, Eos % (Auto) 0.8, Baso % (Auto) 0.4, Neut # (Auto) 4.6, Lymph # (Auto) 1.1, [place] # (Auto) 0.3, Eos # (Auto) 0.1, Baso # (Auto) 0.0, Sodium 139, Potassium 5.5 H, Chloride 101, Carbon Dioxide 29, Anion Gap 14.5, BUN 26 H, Creatinine 1.40 H, Estimated Creat Clear 33, Estimated GFR 48 L, Est GFR ( Amer) 58 L, Glucose 104 H, Calcium 10.4 H, Magnesium 2.2, Total Bilirubin 1.4 H, AST 130 H, ALT 47, Alkaline Phosphatase 104, Troponin I 0.05 H, Total Protein 8.8 H, Albumin 4.6, Globulin 4.2 H, Albumin/Globulin Ratio 1.1, Lipase 138, Free T4 1.55 06/02/23 12:24: Lactate 1.8 06/02/23 12:00 06/02/23 12:00 Orders (Tests/Meds): ED MEDICATIONS Generic Name Dose Route Start Last Admin Trade Name Freq PRN Reason Stop Dose Admin Sodium Chloride 1,000 mls @ 999 mls/hr 06/02/23 12:00 06/02/23 12:18 Sod Chlor 0.9% 1000ml Bag IV 06/02/23 13:00 999 mls/hr .Q1H1M TRI Administration Discontinued Medications Generic Name Dose Route Start Last Admin Trade Name Freq PRN Reason Stop Dose Admin Albuterol/Ipratropium 9 ml 06/02/23 11:50 06/02/23 12:18 Ipratropium/Albuterol 3 Ml Neb IH 06/02/23 11:51 9 ml ONCE ONE Administration ORDERS Category Date Time Status CXR --portable [XR chest portable] Stat Exams 06/02/23 11:51 Taken CBC w/Auto Diff [Complete Blood Count Auto Diff] Stat Lab 06/02/23 12:00 Completed CMP [Comprehensive Metabolic Panel] Stat Lab 06/02/23 12:00 Results Free T4 (Free Thyroxine) Stat Lab 06/02/23 12:00 Completed Lactic Acid Stat Lab 06/02/23 12:24 Completed Lipase Stat Lab 06/02/23 12:00 Results Magnesium Stat Lab 06/02/23 12:00 Results Rapid PCR Covid and Flu A/B Stat Lab 06/02/23 12:13 Received TSH [Thyroid Stimulating Hormone] Stat Lab 06/02/23 12:00 Results Troponin I Q3H Lab 06/02/23 12:00 Results Troponin I Q3H Lab 06/02/23 15:00 Ordered VBG [Venous Blood Gas] Stat RT 06/02/23 11:50 Completed ECG initial [place] Stat Y 06/02/23 12:08 Completed Medical Decision Narrative: In summary, Patient has a PMHx significant for CKD, atrial fibrillation, COPD, hyperlipidemia, hypertension, peripheral vascular disease, CVA who presents to the ED with complaints of failure to thrive. EMS was called to scene by family given failure to thrive. Patient has reportedly been lying in bed for the past 2 days, limited p.o. intake. Patient has not had any acute sick symptoms such as nausea vomiting or diarrhea, but on EMS arrival, the patient was soiled in feces and urine. , who was on scene, noted that the patient has been getting weaker and weaker over the past several weeks to months and is now time for long-term. On physical examination, patient is a chronically ill- appearing cachectic male covered in feces and urine, patient was in an irregularly irregular rhythm, but abdomen soft, nondistended, nontender palpation, patient was moving all extremities, patient was oriented to person place and time. The DDx includes, but is not limited to, acute metabolic hematologic derangement, acute infectious process, acute viral syndrome, acute on chronic kidney injury, ACS, malnutrition and failure to thrive. All of these have been considered, however ruling out the most morbid conditions drove my clinical assessment and thus the following laboratory and/or radiographic evalua tion was conducted to the appropriate extent based on history and physical examination. All ordered laboratory studies independently reviewed and interpreted by myself and pertinent for: -CBC was negative for any acute hematologic derangement -CMP was notable for mild DIOR with creatinine of 1.4, mild hyperkalemia 5.5, no transaminitis. -Troponin was 0.05, likely secondary from demand due to A-fib to RVR -TSH and T4 within normal limits -VBG was negative for any acute respiratory or metabolic acidosis versus alkalosis - Lipase WNL - Magnesium WNL EKG independently reviewed and interpreted as follows: - EKG was notable for A-fib RVR with rates in the 120s, no ST segment derangement X-ray/CT/US studies independently reviewed and interpreted by myself and notable for: - CXR was negative for any acute infectious process or fluid overload Interventions/Medications Received in the ED: - 1 L of IV fluids, duonebs x3 Consults: At this time it was felt that the patient should be evaluated by HM for possible admission. After I had an interactive discussion with the team, HM assumed primary responsibility for patient care and agreed to admit the patient to their service. Urine studies pending at time of admission. Kimmie Rodriguez MD Emergency Medicine Critical Care Critical Care Time Critical Care Time: No
--- NOTE | 2023-06-02 12:08 | ECG_ITS ---
APPROVED REPORT Exam: Resting ECG HR:109 bpm ECG Measurements Heart Rate 109 AXES QRSd 102 QRS 71 QT 317 T -77 QTc 381 Conclusion ATRIAL FIBRILLATION WITH RAPID VENTRICULAR RESPONSE WITH ABERRANT CONDUCTION OR VENTRICULAR PREMATURE COMPLEXES ST DEVIATION AND MODERATE T-WAVE ABNORMALITY, CONSIDER INFERIOR ISCHEMIA [-0.1+ mV T-WAVE IN II/aVF] ABNORMAL ECG UNCONFIRMED REPORT Electronically signed by : Owen Renteria MD 06/02/2023 16:36:03
--- NOTE | 2023-06-02 12:12 | PC.NURSE ---
CALLED LAB ASK THEM TO SAVE A GREEN TOP FOR RESP FOR VBG
--- NOTE | 2023-06-02 12:15 | PC.NURSE ---
CALLED RESP LET THEM KNOW VBG WAS ORDERED ON PT AND GREEN TOP WAS AT LAB AND THEY WERE ALREADY NOTIFIED TO HOLD IF FOR VBG
[2023-06-02 12:16] LABS: Coronavirus 19, PCR Not Detected (NotDetected); Influenza A, PCR Not Detected (NotDetected); Influenza B, PCR Not Detected (NotDetected)
[2023-06-02 12:18] LABS: VBG Base Excess -0.5 mmol/L (-2.4-2.3); VBG HCO3 25.5 mmol/L (23-30); VBG Oxygen Saturation 55.1 % (50-70); VBG PCO2 49.9 mmol/L (35-51); VBG PH 7.33 mmol/L (7.31-7.41); VBG PO2 31.7 mmol/L (28-40)
[2023-06-02] MEDS: 0.9 % SODIUM CHLORIDE 1000ML 1,000 ML 999 ML IV (12:18)
[2023-06-02] MEDS: IPRATROPIUM/ALBUTEROL 3 ML NEB 9 ML IH (12:18)
[2023-06-02 12:26] LABS: Basophils % 0.4 % (0.1-2.0); Eosinophils # 0.1 K/mm3 (0.0-0.4); Eosinophils % 0.8 % (0.1-12.0); Hematocrit 43.6 % (42.0-52.0); Hemoglobin 16.5 g/dL (14.1-18.0); Lymphocytes # 1.1 K/mm3 (0.7-4.5); Lymphocytes % 17.7 % (10-50); Mean Corpuscular HGB Conc 37.9 g/dL (31.8-35.4); Mean Corpuscular Volume 92.2 fl (80-94); Mean Platelet Volume 8.9 fl (7.4-10.4); Monocytes # 0.3 K/mm3 (0.1-1.0); Monocytes % 5.2 % (1.7-9.3); Neutrophils # 4.6 K/mm3 (1.8-7.8); Neutrophils % 75.9 % (37.0-80.0); Platelet Count 148 K/mm3 (142-424); Red Blood Count 4.73 M/mm3 (4.60-6.20); Red Cell Distribution Width 15.5 % (11.5-17.5); White Blood Count 6.1 K/mm3 (4.8-10.8)
[2023-06-02 12:32] LABS: Alanine Aminotransferase 47 U/L (12-78); Albumin Level 4.6 g/dl (3.5-5.0); Albumin/Globulin Ratio 1.1 (1.1-1.8); Alkaline Phosphatase 104 U/L (38-126); Anion Gap 14.5 mEq/L (5-15); Aspartate Amino Transferase 130 U/L (17-59); Bilirubin,Total 1.4 mg/dl (0.2-1.3); Blood Urea Nitrogen 26 mg/dl (9-20); Calcium 10.4 mg/dl (8.4-10.2); Carbon Dioxide 29 mmol/L (22.0-30.0); Chloride 101 mmol/L (98-107); Creatinine Clearance Estimated 33 mL/min (50-200); Estimated Glomerular Filt Rate 48 ml/min (>60); GFR (African American) 58 ML/MIN (>60); Globulin 4.2 g/dL (1.3-3.2); Glucose 104 mg/dl (74-100); Lipase 138 U/L (23-300); Magnesium 2.2 mg/dl (1.6-2.3); Potassium 5.5 mmoL/L (3.5-5.1); Sodium 139 mmol/L (136-145); Total Protein,Serum 8.8 g/dl (6.3-8.2)
[2023-06-02 12:38] LABS: Lactic Acid 1.8 mmol/L (0.7-2.1)
[2023-06-02 12:44] LABS: Troponin I 0.05 ng/ml (0.00-0.034)
[2023-06-02 12:49] LABS: Free T4 (Free Thyroxine) 1.55 ng/dl (0.78-2.19)
--- NOTE | 2023-06-02 12:53 | PC.NURSE ---
pt o2 noted at 100% on 2L NC. O2 turned off. Pt currently on RA at 93% tolerating well.
--- NOTE | 2023-06-02 12:59 | PC.NURSE ---
Called CM for admission for failure to thrive, spoke with Dr. Christophe Giang excepted
[2023-06-02 13:03] LABS: Thyroid Stimulating Hormone 1.43 uIU/mL (0.465-4.68)
[2023-06-02 13:04] LABS: Microscopic, Urine URINE MICROSCOPIC (MICROSCOPIC)
[2023-06-02 13:14] LABS: Appearance,Urine CLEAR (Clear); Blood, Urine 3+ (Negative); Color,Urine YELLOW (Yellow); Glucose,Urine (UA) Negative (Negative); Ketones,Urine TRACE (Negative); Leukocyte Esterase,Urine 2+ (Negative); Nitrate,Urine Negative (Negative); Protein,Urine TRACE (Negative); Specific Gravity, Urine 1.025 (1.005-1.030); Urobilinogen,Urine 0.2 EU/dl (0.2)
[2023-06-02 13:19] LABS: Bilirubin,Urine Negative (Negative)
[2023-06-02 13:28] LABS: Bacteria,Urine 3+ /lpf; Squamous Epithelial Cell,Urine Occasional #/hpf (0-5)
--- NOTE | 2023-06-02 13:39 | PC.NURSE ---
called family to let them know patient is being admitted and asking if a family member could possibly come visit today to talk with case management about placement in custodial. family member verbalized understanding. case management notified.
--- NOTE | 2023-06-02 13:48 | PC.NURSE ---
called report to Roxann DUEÑAS
--- NOTE | 2023-06-02 13:58 | PC.NURSE ---
PT/OT AWARE OF CONSULT.
--- NOTE | 2023-06-02 14:08 | HMH.PHAINT1 ---
Pharmacy Intervention Comments: MEDICATION RECONCILIATION COMPLETED ON PATIENT USING EXTERNAL FILL HISTORY FROM PHARMACY. -LALIT ALVAREZ, JOHNSOND
--- NOTE | 2023-06-02 14:25 | HMH.EDGENADL ---
Discharge Plan Disposition Patient Disposition: Admitted Condition: Fair Clinical Impressions Clinical Impression: Adult failure to thrive Discharge ED Provider: Kimmie Rodriguez General Adult HPI General Chief complaint: Shortness of Breath/Dyspnea Stated complaint: Failure to thrive Time Seen by Provider: 06/02/23 11:50 Mode of Arrival: EMS Source of Information: Patient and EMS Limitations: No Limitations Description of Symptoms (Recalled from ER Triage Doc. by RN): jonathan ems called to patient's home for stroke alert, pt is weak, able to answer questions appropriately, pt reports shortness of breath and cough, denies any pain at this time, pt lives home with , pt was saturated in urine prior to arrival to er, once pt arrived pt was cleaned up by staff, stage 1 pressure ulcer noted to R hip and blanchable redness noted to coccyx, pt also had dried feces on him, ems reports is interested in detention placement because she is is becoming unable to properly care for him at home Related Data Home Medications Medication Instructions Recorded Confirmed aspirin 81 mg tablet,delayed 81 mg PO DAILY [facility] 06/02/23 06/02/23 release cholecalciferol (vitamin D3) 50 50 mcg PO DAILY Supplement 06/02/23 06/02/23 mcg (2,000 unit) capsule irbesartan 75 mg tablet 75 mg PO DAILY High Blood Pressure 06/02/23 06/02/23 metoprolol tartrate 25 mg tablet 25 mg PO BID High Blood Pressure 06/02/23 06/02/23 pravastatin 40 mg tablet 40 mg PO DAILY Cholesterol 06/02/23 06/02/23 Allergies Allergy/AdvReac Type Severity Reaction Status Date / Time No Known Allergies Allergy Verified 03/11/23 14:55 [facility] Disclaimer: The information contained in this section may have been updated after the patient was seen, as this information can be updated by other users. Medical History Acute kidney failure Afib DIOR (acute kidney injury) Contracture of hand COPD (chronic obstructive pulmonary disease) Decreased functional mobility Dementia Falls HLD (hyperlipidemia) HTN (hypertension) Psoriasis PVD (peripheral vascular disease) Sepsis Stroke UTI (urinary tract infection) Wandering atrial pacemaker Weakness Social History Smoking Status: Current every day smoker tobacco type: cigarettes packs per day: 2 second hand exposure: Yes alcohol intake: never substance use type: denies use current occupational status: retired Travel in the last 8 weeks: None household members: spouse housing: house current occupational exposures/hazards: No caffeine: No Physical Exam General General appearance: alert and cachectic Medical Decision Making Vital Signs: 06/02/23 11:50 06/02/23 12:00 06/02/23 12:31 Temperature 98.1 F Temperature Source Oral Pulse Rate 106 H Pulse Rate [Left Radial] 125 H Respiratory Rate 22 24 37 H Blood Pressure 148/88 H 138/83 Blood Pressure [Right Arm] 148/88 H Blood Pressure Mean [Right Arm] 108 Blood Pressure Source Blood Pressure Source [Right Arm] Automatic Cuff Blood Pressure Position Blood Pressure Position [Right Arm] Sitting 02 Sat by Pulse Oximetry 84 L 100 100 Oxygen Delivery Method Room Air Room Air Room Air 06/02/23 13:02 06/02/23 13:32 06/02/23 13:49 Temperature 98.2 F Temperature Source Oral Pulse Rate 73 75 75 Pulse Rate [Left Radial] Respiratory Rate 19 19 19 Blood Pressure 113/51 L 104/52 L 104/52 L Blood Pressure [Right Arm] Blood Pressure Mean [Right Arm] Blood Pressure Source Automatic Cuff Blood Pressure Source [Right Arm] Blood Pressure Position Sitting Blood Pressure Position [Right Arm] 02 Sat by Pulse Oximetry 93 L 94 L Oxygen Delivery Method Room Air Room Air Room Air Lab Data Lab Results 06/02/23 11:50: VBG pH 7.33, VBG pCO2 49.9, VBG pO2 31.7, VBG HCO3 25.5, VBG Total CO2 27.0, VBG O2 Saturation 55.1, VBG Base Excess -0.5 06/02/23 12:00: WBC 6.1, RBC 4.73, Hgb 16.5, Hct 43.6, MCV 92.2, MCH 35.0 H, MCHC 37.9 H, RDW 15.5, Plt Count 148, MPV 8.9, Neut % (Auto) 75.9, Lymph % (Auto) 17.7, [place] % (Auto) 5.2, Eos % (Auto) 0.8, Baso % (Auto) 0.4, Neut # (Auto) 4.6, Lymph # (Auto) 1.1, [place] # (Auto) 0.3, Eos # (Auto) 0.1, Baso # (Auto) 0.0, Sodium 139, Potassium 5.5 H, Chloride 101, Carbon Dioxide 29, Anion Gap 14.5, BUN 26 H, Creatinine 1.40 H, Estimated Creat Clear 33, Estimated GFR 48 L, Est GFR ( Amer) 58 L, Glucose 104 H, Calcium 10.4 H, Magnesium 2.2, Total Bilirubin 1.4 H, AST 130 H, ALT 47, Alkaline Phosphatase 104, Troponin I 0.05 H, Total Protein 8.8 H, Albumin 4.6, Globulin 4.2 H, Albumin/Globulin Ratio 1.1, Lipase 138, TSH 1.43, Free T4 1.55 06/02/23 12:01: Urine Color Yellow, Urine Appearance Clear, Urine pH 6.0, Ur Specific [place] 1.025, Urine Protein Trace, Urine Glucose (UA) Negative, Urine Ketones Trace, Urine Blood 3+, Urine Nitrate Negative, Urine Bilirubin Negative, Urine Urobilinogen 0.2, Ur Leukocyte Esterase 2+ A, Urine RBC 10-20, Urine WBC 10-20, Ur Squamous Epith Cells Occasional, Urine Bacteria 3+ 06/02/23 12:13: SARS-CoV-2 (PCR) Not detected, Influenza A Untype (PCR) Not detected, Influenza Type B (PCR) Not detected 06/02/23 12:24: Lactate 1.8 06/02/23 12:00 06/02/23 12:00 Orders (Tests/Meds): ED MEDICATIONS Discontinued Medications Generic Name Dose Route Start Last Admin Trade Name [place] PRN Reason Stop Dose Admin Albuterol/Ipratropium 9 ml 06/02/23 11:50 06/02/23 12:18 Ipratropium/Albuterol 3 Ml Neb IH 06/02/23 11:51 9 ml ONCE ONE Administration Sodium Chloride 1,000 mls @ 999 mls/hr 06/02/23 12:00 06/02/23 12:18 Sod Chlor 0.9% 1000ml Bag IV 06/02/23 13:00 999 mls/hr .Q1H1M TRI Administration ORDERS Category Date Time Status CXR --portable [XR chest portable] Stat Exams 06/02/23 11:51 Completed CBC w/Auto Diff [Complete Blood Count Auto Diff] Stat Lab 06/02/23 12:00 Completed CMP [Comprehensive Metabolic Panel] Stat Lab 06/02/23 12:00 Completed Free T4 (Free Thyroxine) Stat Lab 06/02/23 12:00 Completed Lactic Acid Stat Lab 06/02/23 12:24 Completed Lipase Stat Lab 06/02/23 12:00 Completed Magnesium Stat Lab 06/02/23 12:00 Completed Rapid PCR Covid and Flu A/B Stat Lab 06/02/23 12:13 Completed TSH [Thyroid Stimulating Hormone] Stat Lab 06/02/23 12:00 Completed Troponin I Q3H Lab 06/02/23 12:00 Completed Troponin I Q3H Lab 06/02/23 15:00 Ordered UA [Urinalysis and Microscopic] Stat Lab 06/02/23 12:01 Completed Urine Culture Stat Micro 06/02/23 12:01 Received VBG [Venous Blood Gas] Stat RT 06/02/23 11:50 Completed ECG initial [place] Stat Y 06/02/23 12:08 Completed
--- NOTE | 2023-06-02 15:06 | HMH.OTEV ---
OT Inpatient Evaluation Rehab OT IP Evaluation Start: 06/02/23 13:36 Freq: ONCE Status: Active Protocol: Document 06/02/23 14:49 JAQUAN (Rec: 06/02/23 15:05 JAQUAN [id number]) Rehab OT IP Assessment Subjective History Patient has a PMHx significant for CKD, atrial fibrillation, COPD, hyperlipidemia, hypertension, peripheral vascular disease, CVA who presents to the ED with complaints of failure to thrive. EMS was called to scene by family given failure to thrive. Patient has reportedly been lying in bed for the past 2 days, limited p .o. intake. Patient has not had any acute sick symptoms such as nausea vomiting or diarrhea, but on EMS arrival, the patient was soiled in feces and urine. , who was on scene, noted that the patient has been getting weaker and weaker over the past several weeks to months and is now time for long-term. Yeah. Patient lives at home with . Verbalize to use a w/c to maneuver around in the home . assisted with ADLs. However is unable to provide care for patient at this time. Patient was sitting in urine and stool at arrival of EMS. Subjective Instructed Patient on proper hand and foot placement to completed bed mobility from supine->sit @ EOB requiring Min A. Patient demonstrated good dynamic sitting balance. Patient verbalize that he has not stood in 2-3 months. Patient uses a w/c to manevuer . Did not attempt to stand at this time. Objective Patient Orientation Person,Name,Age,Birthday,Year Right Upper Extremity Gross ROM WFL Left Upper Extremity Gross ROM WFL Bed Mobility bed mobility - supine/sit Assist Level Minimal x 1 (25% assist) Rehab OT IP prob,goals,plan Problems Date of Evaluation: 06/02/23 OT IP Problems Bed Mobility,Transfers,Balance ,Self care,Safety Rehab Potential Rehab Potential Good Equipment Needs Assistive Devices None / NA Plan OT intervention Plan Bed Mobility,Transfers,Balance ,Self care,Safety,Therapeutic Exercise OT Plan Frequency Daily Duration LOS Discharge Goals Bed Mobility Ability Assistance x1 Discharge Plan OT Discharge Plan Recommend placement at this time. Patient is unable to provide care. is unable to assist patient at this time . Recommendation of SNF for rehabilitation and 24/11 care. Eval Complexity Eval Charge Codes 57970 - Low Complexity PHYSICIAN CERTIFICATION: I certify the specified therapy services for Salvatoresudhakar Shukla Carrillo JR are required, authorized, and reviewed every 30 days.
[2023-06-02 15:51] LABS: Troponin I 0.04 ng/ml (0.00-0.034)
[2023-06-02] MEDS: HEPARIN SODIUM 5,000 UNIT/ML VIAL 5000 UNIT SQ ×2 (17:08→22:37)
[2023-06-02] MEDS: CEFTRIAXONE 1 GM 1 GM in 0.9 % SODIUM CHLORIDE 50 ML IV (17:08)
--- NOTE | 2023-06-02 17:51 | P.HP_ITS ---
History of Present Illness *Admission Date: 06/02/23 *Reason for visit:: Generalized weakness *History of present illness: Patient is a 87-year-old male with past medical history of COPD, CKD atrial fibrillation hypertension hyperlipidemia CVA who presented to hospital due to not able to take care of himself and failure to thrive. Patient on arrival to the hospital was found in feces and urine. Patient denies any complaints nausea vomiting diarrhea. Patient family mentions he has been getting his medications. Patient otherwise denies fever chills diarrhea constipation dysuria. [facility] Disclaimer: The information contained in this section may have been updated after the patient was seen, as this information can be updated by other users. Medical History Acute kidney failure Afib DIOR (acute kidney injury) Contracture of hand COPD (chronic obstructive pulmonary disease) Decreased functional mobility Dementia Falls HLD (hyperlipidemia) HTN (hypertension) Psoriasis PVD (peripheral vascular disease) Sepsis Stroke UTI (urinary tract infection) Wandering atrial pacemaker Weakness Social History Smoking Status: Current every day smoker tobacco type: cigarettes packs per day: 2 second hand exposure: Yes alcohol intake: never substance use type: denies use current occupational status: retired Travel in the last 8 weeks: None household members: spouse housing: house current occupational exposures/hazards: No caffeine: No Review of Systems Review of Systems Review of systems (narrative): as per [facility] Meds Home Medications and Allergies Home Medications Medication Instructions Recorded Confirmed Type aspirin 81 mg tablet,delayed 81 mg PO DAILY Heart Health 06/02/23 06/02/23 History release cholecalciferol (vitamin D3) 50 50 mcg PO DAILY Supplement 06/02/23 06/02/23 History mcg (2,000 unit) capsule irbesartan 75 mg tablet 75 mg PO DAILY High Blood Pressure 06/02/23 06/02/23 History metoprolol tartrate 25 mg tablet 25 mg PO BID High Blood Pressure 06/02/23 06/02/23 History pravastatin 40 mg tablet 40 mg PO DAILY Cholesterol 06/02/23 06/02/23 History New Prescriptions to Start Prescriptions: Allergies Allergy/AdvReac Type Severity Reaction Status Date / Time No Known Allergies Allergy Verified 11/08/23 14:55 Exam Data for Last 24 hours Vital signs and Labs for Last 24 Hours: Temp Pulse Resp BP Pulse Ox O2 Del Method 97.7 F 73 28 H 129/97 H 93 L Room Air 06/02/23 14:46 06/02/23 14:46 06/02/23 14:46 06/02/23 14:46 06/02/23 14:46 06/02/23 14:46 Laboratory Results - last 24 hr 06/02/23 11:50: VBG pH 7.33, VBG pCO2 49.9, VBG pO2 31.7, VBG HCO3 25.5, VBG Total CO2 27.0, VBG O2 Saturation 55.1, VBG Base Excess -0.5 06/02/23 12:00: WBC 6.1, RBC 4.73, Hgb 16.5, Hct 43.6, MCV 92.2, MCH 35.0 H, MCHC 37.9 H, RDW 15.5, Plt Count 148, MPV 8.9, Neut % (Auto) 75.9, Lymph % (Auto) 17.7, [place] % (Auto) 5.2, Eos % (Auto) 0.8, Baso % (Auto) 0.4, Neut # (Auto) 4.6, Lymph # (Auto) 1.1, [place] # (Auto) 0.3, Eos # (Auto) 0.1, Baso # (Auto) 0.0, Sodium 139, Potassium 5.5 H, Chloride 101, Carbon Dioxide 29, Anion Gap 14.5, BUN 26 H, Creatinine 1.40 H, Estimated Creat Clear 33, Estimated GFR 48 L, Est GFR ( Amer) 58 L, Glucose 104 H, Calcium 10.4 H, Magnesium 2.2, Total Bilirubin 1.4 H, AST 130 H, ALT 47, Alkaline Phosphatase 104, Troponin I 0.05 H, Total Protein 8.8 H, Albumin 4.6, Globulin 4.2 H, Albumin/Globulin Ratio 1.1, Lipase 138, TSH 1.43, Free T4 1.55 06/02/23 12:01: Urine Color Yellow, Urine Appearance Clear, Urine pH 6.0, Ur Specific [place] 1.025, Urine Protein Trace, Urine Glucose (UA) Negative, Urine Ketones Trace, Urine Blood 3+, Urine Nitrate Negative, Urine Bilirubin Negative, Urine Urobilinogen 0.2, Ur Leukocyte Esterase 2+ A, Urine RBC 10-20, Urine WBC 10-20, Ur Squamous Epith Cells Occasional, Urine Bacteria 3+ 06/02/23 12:13: SARS-CoV-2 (PCR) Not detected, Influenza A Untype (PCR) Not detected, Influenza Type B (PCR) Not detected 06/02/23 12:24: Lactate 1.8 06/02/23 15:15: Troponin I 0.04 H I & O for Last 24 hours: Intake & Output 05/30/23 05/31/23 06/01/23 06/02/23 23:59 23:59 23:59 23:59 Weight 64.524 kg Constitutional Constitutional: no acute distress Comments: appears weak, disheveled, frail *Routine HEENT Exam Head: Present normocephalic Eye: Present EOMI and PERRL ENT: Present mucous membranes moist *Routine Neck Exam Neck: Present supple; Absent lymphadenopathy *Routine Respiratory Exam Respiratory: Present CTA bilaterally *Routine Cardiovascular Exam Cardiovascular: Present RRR *Routine Abdominal Exam Abdominal: Present soft and normoactive bowel sounds; Absent tenderness *Routine Rectal Exam Rectal:: deferred *Routine Genitalia Exam Genitalia:: deferred *Routine Extremities Exam Extremities: Absent cyanosis, clubbing or edema *Routine Skin Exam Skin: Present warm; Absent rash *Routine Neurological Exam Neurological: Present alert Comments: AxO x 2 Assessment and Plan *Assessment and plan (1) Adult failure to thrive: Status: Acute Category: Medical Code(s): R62.7 - Adult failure to thrive (2) Cognitive decline: Status: Acute Category: Medical Code(s): R41.89 - Other symptoms and signs involving cognitive functions and awareness (3) Hyperlipidemia: Status: Chronic Qualifiers: Hyperlipidemia type: unspecified Qualified Code(s): E78.5 - Hyperlipidemia, unspecified Category: Medical Code(s): E78.5 - Hyperlipidemia, unspecified (4) Hypertension: Status: Chronic Qualifiers: Hypertension type: essential hypertension Qualified Code(s): I10 - Essential (primary) hypertension Category: Medical Code(s): I10 - Essential (primary) hypertension (5) Tobacco use: Status: Acute Category: Social Hx Code(s): Z72.0 - Tobacco use (6) COPD (chronic obstructive pulmonary disease): Status: Acute Category: Medical Code(s): J44.9 - Chronic obstructive pulmonary disease, unspecified Plan Patient is a 87-year-old male with past medical history of COPD, CKD atrial fibrillation hypertension hyperlipidemia CVA who presented to hospital due to not able to take care of himself and failure to thrive. Patient on arrival to the hospital was found in feces and urine. Patient denies any complaints nausea vomiting diarrhea. Patient family mentions he has been getting his medications. Patient otherwise denies fever chills diarrhea constipation dysuria. Assessment Adult failure to thrive Generalized weakness Suspect UTI Hypokalemia COPD CKD Atrial fibrillation Hypertension Hyperlipidemia Plan Consult PT/OT Fall precautions Consult PT/OT Order Radhama, recheck potassium Start IV Rocephin, follow-up on wound culture Monitor and replace electrolytes DVT prophylaxis-Lovenox Resume home medications
[2023-06-02] MEDS: LOKELMA 5GM PACKET 10 GM PO (18:47)
--- NOTE | 2023-06-02 19:17 | PC.NURSE ---
patient new admit from ER. Family states wanting placement at [place]. Patient confused and agitated at times. VSS.
[2023-06-02] MEDS: QUETIAPINE 25MG TABLET 25 MG PO (20:44)
[2023-06-03] VITALS (10 sets, daily range): BP systolic 118–154; BP diastolic 52–86; PULSE 51–123; RESP 20–26; TEMP 36.7–38.6; O2SAT 92–98; BMI 21.6
--- NOTE | 2023-06-03 00:20 | ECG_ITS ---
APPROVED REPORT Exam: Resting ECG HR:110 bpm ECG Measurements Heart Rate 110 AXES QRSd 89 QRS 66 QT 339 T -7 QTc 404 Conclusion ATRIAL FIBRILLATION WITH RAPID VENTRICULAR RESPONSE NONSPECIFIC ST & T-WAVE ABNORMALITY ABNORMAL ECG UNCONFIRMED REPORT Electronically signed by : Owen Renteria MD 06/03/2023 22:42:58
[2023-06-03] MEDS: METOPROLOL TARTRATE 5MG/5ML VIAL 5 MG IV (00:34)
[2023-06-03] MEDS: ACETAMINOPHEN 325MG TAB 650 MG PO (04:33)
[2023-06-03 07:13] LABS: Mean Corpuscular Hemoglobin 31.1 pg (27.0-31.2); Monocytes # 0.4 K/mm3 (0.1-1.0)
[2023-06-03 07:21] LABS: Anion Gap 10.6 mEq/L (5-15); Blood Urea Nitrogen 25 mg/dl (9-20); Calcium 9.5 mg/dl (8.4-10.2); Carbon Dioxide 26 mmol/L (22.0-30.0); Chloride 106 mmol/L (98-107); Creatinine Clearance Estimated 34 mL/min (50-200); Estimated Glomerular Filt Rate 48 ml/min (>60); GFR (African American) 58 ML/MIN (>60); Glucose 117 mg/dl (74-100); Potassium 4.6 mmoL/L (3.5-5.1); Sodium 138 mmol/L (136-145)
[2023-06-03 07:33] LABS: Basophils # 0.1 K/mm3 (0-0.2); Eosinophils % 0.3 % (0.1-12.0); Hematocrit 41.2 % (42.0-52.0); Lymphocytes # 0.9 K/mm3 (0.7-4.5); Lymphocytes % 14.5 % (10-50); Mean Corpuscular HGB Conc 33.6 g/dL (31.8-35.4); Mean Corpuscular Volume 92.3 fl (80-94); Mean Platelet Volume 9.4 fl (7.4-10.4); Monocytes % 6.5 % (1.7-9.3); Neutrophils # 4.6 K/mm3 (1.8-7.8); Neutrophils % 77.8 % (37.0-80.0); Platelet Count 148 K/mm3 (142-424); Red Blood Count 4.47 M/mm3 (4.60-6.20); Red Cell Distribution Width 15.8 % (11.5-17.5)
--- NOTE | 2023-06-03 07:33 | SW/DCPLANNER ---
Addendum entered by Zarina Sibley RN 06/04/23 09:42: Spoke with Libra at [facility] and patient is good to come today. Addendum entered by Padmaja Cuenca 06/03/23 11:57: Libra valdez/ [facility] stated that she can accept patient I[facility] level of care pending discussion w/ family. Libra will follow up w/ me once she speaks w/ family. Original Note: CM spoke w/ patient, and daughter yesterday regarding placement due to patient unable to care for himself at home. Family stated that patient has been at [facility] in the past and prefers to go back to this facility. Patient information has been faxed to Libra valdez/ [facility]. I will continue to follow up w/ patient, family, and Libra at [facility]. Discharge date is unknown at this time.
[2023-06-03 08:05] LABS: Hemoglobin 13.9 g/dL (14.1-18.0)
[2023-06-03] MEDS: HEPARIN SODIUM 5,000 UNIT/ML VIAL 5000 UNIT SQ ×3 (09:29→22:30)
[2023-06-03] MEDS: METOPROLOL TARTRATE 25MG TABLET 25 MG PO ×2 (09:29→20:35)
[2023-06-03] MEDS: CHOLECALCIFEROL 1,000 UNITS (25MCG) TABLET 50 MCG PO (09:29)
[2023-06-03] MEDS: ASPIRIN EC 81MG TABLET 81 MG PO (09:29)
[2023-06-03] MEDS: IRBESARTAN 75MG TABLET 75 MG PO (09:29)
--- NOTE | 2023-06-03 09:38 | HMH.PTEV ---
Physical Therapy Evaluation Rehab PT IP Evaluation Start: 06/02/23 13:36 Freq: ONCE Status: Active Protocol: Document 06/03/23 09:24 DAVINA (Rec: 06/03/23 09:37 DAVINA [email or web address]) Subjective/History History History Per history and physical: Patient is a 87-year-old male with past medical history of COPD, CKD atrial fibrillation hypertension hyperlipidemia CVA who presented to hospital due to not able to take care of himself and failure to thrive. Patient on arrival to the hospital was found in feces and urine. Patient denies any complaints nausea vomiting diarrhea. Patient family mentions he has been getting his medications. Patient otherwise denies fever chills diarrhea constipation dysuria. Subjective Subjective Pt did not respond verbally to questions and had difficulty waking up to provide subjectice reports. Per OT evaluation: Patient verbalized that he has not stood in 2-3 months. Patient uses a w/c to manevuer. Pt did not stand this date and demonstrated poor static sitting balance. New diagnosis of cancer in past 12 No months? Rehab PT IP Eval Objective Appearance Patient Behavior Fatigued,Asleep Ambulation Patient Able to Ambulate No Transfers Bed Transfer Ability Moderate x 2 (50% assist) Rehab PT IP prob,goals,plan Problems Date of Evaluation: 06/03/23 PT IP Problems Bed Mobility,Transfers,Gait, Balance,Self care Rehab Potential Rehab Potential Fair Equipment Needs Assistive Devices Wheelchair Plan PT Intervention Plan Bed Mobility,Transfers,Balance ,Self care,Safety,Therapeutic Exercise Other Intervention Plan 1-2 times a day PT Plan Frequency Daily Duration LOS Discharge Goals Bed Transfer Ability Minimal x 1 (25% assist) Sit to Stand Chair Transfer Ability Maximum x 2 (75% assist) Discharge Plan PT Discharge Plan PT recommending placement at this time. Patient is unable to provide care and is unable to assist patient at this time. Recommendation of SNF for rehabilitation and care. Pt would benefit from skilled inpatient physical therapy to address deficits, prevent wounds, and prevent further functional decline. Eval Complexity Eval Charge Codes 98495 - High Complexity PHYSICIAN CERTIFICATION: I certify the specified therapy services for Salvatore Vizcaino JR are required, authorized, and reviewed every 30 days.
--- NOTE | 2023-06-03 11:21 | P.CONCA_ITS ---
History of Present Illness History of Present Illness Consult date: 06/03/23 Requesting physician: Ana Saeed Consult reason: atrial fibrillation Chief complaint: FTT, A. fib Additional Medical History:: 1. Hypertension A. Echo, 2018, normal EF (55%) with mild LAE and concentric LVH. RVSP 33 mmHg. 2. Hyperlipidemia 3. Tobacco use since teenager 4. COPD 5. Sick sinus syndrome with atrial fibrillation and sinus bradycardia on no rate control medications, 02/14/2020 6. Recurrent anemia A. 02/2020, hemoglobin 11.5 B. Hemoglobin 13.9, 06/03/2023 7. Thrombocytopenia, 02/2020, platelets around 80,000 8. Dementia A. Chronic white matter changes on CT of the head, 02/2020 9. Failure to thrive, 05/2023 A. Recurrent E. coli UTI 10. Acute kidney injury with hyperkalemia, 06/02/2023 A. Potassium 5.5 with creatinine 1.4 and GFR 48 History of present illness: Patient is a 87-year-old male with past medical history of COPD, CKD atrial f ibrillation hypertension hyperlipidemia CVA who presented to hospital due to not able to take care of himself and failure to thrive. Patient on arrival to the hospital was found in feces and urine. Patient denies any complaints nausea vomiting diarrhea. Patient family mentions he has been getting his medications. Patient otherwise denies fever chills diarrhea constipation dysuria. The above per Dr. Saeed Cardiology consulted for history of A. fib and mildly elevated troponins. Patient is aware that he is in the hospital but is unsure why. States he lives at home with his . Patient is in a position with knees drawn up towards chest. [facility] Disclaimer: The information contained in this section may have been updated after the patient was seen, as this information can be updated by other users. Medical History Acute kidney failure Afib DIOR (acute kidney injury) Contracture of hand COPD (chronic obstructive pulmonary disease) Decreased functional mobility Dementia Falls HLD (hyperlipidemia) HTN (hypertension) Psoriasis PVD (peripheral vascular disease) Sepsis Stroke UTI (urinary tract infection) Wandering atrial pacemaker Weakness Social History Smoking Status: Current every day smoker tobacco type: cigarettes packs per day: 2 second hand exposure: Yes alcohol intake: never substance use type: denies use current occupational status: retired Travel in the last 8 weeks: None household members: spouse housing: house current occupational exposures/hazards: No caffeine: No Review of Systems Review of Systems Review of systems:: pertinent systems reviewed and negative unless documented below Exam Data for Last 24 hours Vital signs and Labs for Last 24 Hours: Temp Pulse Resp BP Pulse Ox O2 Del Method 99.6 F 90 26 H 128/65 96 Room Air 06/03/23 07:34 06/03/23 08:00 06/03/23 07:34 06/03/23 07:34 06/03/23 07:34 06/03/23 10:40 Laboratory Results - last 24 hr 06/02/23 11:50: VBG pH 7.33, VBG pCO2 49.9, VBG pO2 31.7, VBG HCO3 25.5, VBG Total CO2 27.0, VBG O2 Saturation 55.1, VBG Base Excess -0.5 06/02/23 12:00: WBC 6.1, RBC 4.73, Hgb 16.5, Hct 43.6, MCV 92.2, MCH 35.0 H, MCHC 37.9 H, RDW 15.5, Plt Count 148, MPV 8.9, Neut % (Auto) 75.9, Lymph % (Auto) 17.7, [place] % (Auto) 5.2, Eos % (Auto) 0.8, Baso % (Auto) 0.4, Neut # (Auto) 4.6, Lymph # (Auto) 1.1, [place] # (Auto) 0.3, Eos # (Auto) 0.1, Baso # (Auto) 0.0, Sodium 139, Potassium 5.5 H, Chloride 101, Carbon Dioxide 29, Anion Gap 14.5, BUN 26 H, Creatinine 1.40 H, Estimated Creat Clear 33, Estimated GFR 48 L, Est GFR ( Amer) 58 L, Glucose 104 H, Calcium 10.4 H, Magnesium 2.2, Total Bilirubin 1.4 H, AST 130 H, ALT 47, Alkaline Phosphatase 104, Troponin I 0.05 H, Total Protein 8.8 H, Albumin 4.6, Globulin 4.2 H, Albumin/Globulin Ratio 1.1, Lipase 138, TSH 1.43, Free T4 1.55 06/02/23 12:01: Urine Color Yellow, Urine Appearance Clear, Urine pH 6.0, Ur Specific [place] 1.025, Urine Protein Trace, Urine Glucose (UA) Negative, Urine Ketones Trace, Urine Blood 3+, Urine Nitrate Negative, Urine Bilirubin Negative, Urine Urobilinogen 0.2, Ur Leukocyte Esterase 2+ A, Urine RBC 10-20, Urine WBC 10-20, Ur Squamous Epith Cells Occasional, Urine Bacteria 3+ 06/02/23 12:13: SARS-CoV-2 (PCR) Not detected, Influenza A Untype (PCR) Not detected, Influenza Type B (PCR) Not detected 06/02/23 12:24: Lactate 1.8 06/02/23 15:15: Troponin I 0.04 H 06/03/23 06:10: WBC 6.0, RBC 4.47 L, Hgb 13.9 L D, Hct 41.2 L, MCV 92.3, MCH 31.1, MCHC 33.6, RDW 15.8, Plt Count 148, MPV 9.4, Neut % (Auto) 77.8, Lymph % (Auto) 14.5, [place] % (Auto) 6.5, Eos % (Auto) 0.3, Baso % (Auto) 1.0, Neut # (Auto) 4.6, Lymph # (Auto) 0.9, [place] # (Auto) 0.4, Eos # (Auto) 0.0, Baso # (Auto) 0.1, Sodium 138, Potassium 4.6, Chloride 106, Carbon Dioxide 26, Anion Gap 10.6, BUN 25 H, Creatinine 1.40 H, Estimated Creat Clear 34, Estimated GFR 48 L, Est GFR ( Amer) 58 L, Glucose 117 H, Calcium 9.5 I & O for Last 24 hours: Intake & Output 05/31/23 06/01/23 06/02/23 06/03/23 11:59 11:59 11:59 11:59 Intake Total 470 / 470 Balance 470 / 470 Weight 140 lb 142 lb 7.051 oz Constitutional Constitutional: no acute distress *Routine Respiratory Exam Respiratory: Present rhonchi and wheezes *Routine Cardiovascular Exam Cardiovascular: Present irregularly irregular *Routine Extremities Exam Extremities: Absent edema *Routine Neurological Exam Neurological: Present alert Meds Home Medications and Allergies Home Medications Medication Instructions Recorded Confirmed Type aspirin 81 mg tablet,delayed 81 mg PO DAILY Heart Health 06/02/23 06/02/23 History release cholecalciferol (vitamin D3) 50 50 mcg PO DAILY Supplement 06/02/23 06/02/23 History mcg (2,000 unit) capsule irbesartan 75 mg tablet 75 mg PO DAILY High Blood Pressure 06/02/23 06/02/23 History metoprolol tartrate 25 mg tablet 25 mg PO BID High Blood Pressure 06/02/23 06/02/23 History pravastatin 40 mg tablet 40 mg PO DAILY Cholesterol 06/02/23 06/02/23 History New Prescriptions to Start Prescriptions: Allergies Allergy/AdvReac Type Severity Reaction Status Date / Time No Known Allergies Allergy Verified 03/11/23 14:55 Assessment and Plan *Assessment and plan (1) Adult failure to thrive: Status: Acute Category: Medical Code(s): R62.7 - Adult failure to thrive (2) Cognitive decline: Status: Acute Category: Medical Code(s): R41.89 - Other symptoms and signs involving cognitive functions and awareness (3) Dementia: Status: Acute Qualifiers: Dementia behavioral or psychological symptom: unspecified whether behavioral, psychotic, or mood disturbance or anxiety Dementia severity: unspecified severity Dementia type: unspecified type Qualified Code(s): F03.90 - Unspecified dementia, unspecified severity, without behavioral disturbance, psychotic disturbance, mood disturbance, and anxiety Category: Medical Code(s): F03.90 - Unspecified dementia, unspecified severity, without behavioral disturbance, psychotic disturbance, mood disturbance, and anxiety (4) Hypertension: Status: Chronic Qualifiers: Hypertension type: essential hypertension Qualified Code(s): I10 - Essential (primary) hypertension Category: Medical Code(s): I10 - Essential (primary) hypertension (5) Paroxysmal atrial fibrillation: Status: Acute Category: Medical Code(s): I48.0 - Paroxysmal atrial fibrillation (6) History of sick sinus syndrome: Status: Acute Category: Medical Code(s): Z86.79 - Personal history of other diseases of the circulatory system Plan 1. Failure to thrive -[facility] placement pending 2. Dementia with cognitive decline 3. Mildly elevated troponins -no plans for invasive procedures 4. Paroxysmal atrial fibrillation with history of sick sinus syndrome -Continue metoprolol -Not an anticoagulation candidate 5. Hypertension -Continue irbesartan and metoprolol Adjust metoprolol as needed for BP/HR control. No plans for procedures. OK for discharge to [place] when ready from Cardiology standpoint.
--- NOTE | 2023-06-03 11:59 | HMH.SLDYSPHA ---
Speech & Language Evaluation Speech/Language Dysphagia Evaluation Start: 06/03/23 11:42 Freq: ONCE Status: Active Protocol: Document 06/03/23 11:43 PAPITOMAE (Rec: 06/03/23 11:59 [facility] [id number]) Dysphagia Assess/Goals/Plan Assessment Date of Evaluation: 06/03/23 Evaluation Type Initial Certification Assessment/Problems rule out aspiration per MD order. Does Patient Qualify for Service Yes Qualify/Failure Comment Based on clinical observations made during bedside swallow evaluation, Mr. Vizcaino would benefit from skilled speech therapy services to improve swallow function, further assess oropharyngeal phase of the swallow with an instrumental assessment if needed, and observe diet texture analysis and tolerance . Recommendations PHYSICIAN CERTIFICATION: The specified therapy services are required, authorized, and reviewed every 30 days. Pt will be seen # times/week 2 for # weeks 4 Diet Recommendations Mechanical Soft Liquid Type Recommendations [place] Consistency SL Swallow Guidelines Assist w/all meals,Alt bite w/ sip thru meal,High aspiration risk,Chk mough for pocketing, Crush meds as allowed*,Oral care pre/post meals Crush Meds Crush all meds Dysphagia Swallow Precautions/Strategies Sitting Upright (90 deg),Small Bites and Sips,Alternate Liquids/Solids Plan Anticipate reaching STG in # weeks 2 Anticipate reaching LTG in # weeks 4 Pt/Guardian verbally ack understanding Yes of dx/prognosis/goals G -code Required No STG-Other Comment/Non-Specific Mr. Vizcaino will tolerate thin liquid trials with no overt s/ sxs of aspiration across 5 trials in a session across three consecutive sessions. Halfway Goals Diet mechanical soft ground with Liquids [place] Thick Education Instructions provided Discussed diet recommendations and aspiration precautions, potential need for MBSS, and oral care education with nursing and care management both of which expressed understanding. 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 Patient on arrival to the hospital was found in feces and urine. Patient denies any complaints nausea vomiting diarrhea. Patient family mentions he has been getting his medications. Patient otherwise denies fever chills diarrhea constipation dysuria. CXR impressions: No acute abnormality. Changes of emphysema. Rehab Services Assessed Speech therapy Language Primary Language Citizen Of [place] General Information General Current Food Consistancy Regular,Thin Liquids Dentition Edentulous Oxygen Status Room Air Patient Orientation Person Ability to Follow Directions Fair Communication Ability Moderate Impairment Dysphagia:Food Presentation Evaluation Food Type Pureed,Mechanical Soft,Liquid, Pudding Normal/Thin Liquid Response Delayed swallow,Coughing after swallow,Clears throat,Wet voice Dysphagia Evaluation Mechanical Soft Multiple swallow attempts, Food Behavior Response Residual on tongue Dysphagia Evaluation Summary Pt was seen sitting upright in his bed for CSE, he is able to follow simple commands when given modeling and/or repetition. He was a&o to his name. Throughout assessment, positioning declined 2' Mr. Vizcaino attempting to return in a -like position. Pt is edentulous and pleasantly confused. He was first given thin liquid trials via ice chip and spoonfuls of water with no overt s/sxs of aspiration, open cup trials were not given 2' altering positions and difficulty maintaining lip seal. He was given straw sips in which he presents with an audible swallow, accompanied with wet, gurgly voice and cough. He was then presented with nectar thick trials and no overt s/ sxs of aspiration were observed. He was then given applesauce and pudding trials with no signs of distress or discomfort. Later, he was given a small bite of a mechanical soft textured cookie, he was observed to have difficulty masticating and manipulating the solid to transition from oral transit to pharyngeal phase of swallow at baseline 2' caro residuals in cheeks and on tongue, he was able to clear when given an applesauce wash. Mr. Vizcaino was lastly given a crushed MS cookie trial with pudding and demonstrated adequate mastication and manipulation of the bolus with this trial. Based on observations made, Mr. Vizcaino would benefit from assistance during meals with oral care post-meal and checking for pocketing, as well as continued skilled speech therapy services to esnure diet texture tolerance. Stroke Dysphagia Assessment PHYSICIAN CERTIFICATION: I certify the specified therapy services for Salvatore Vizcaino JR are required, authorized, and reviewed every 30 days.
--- NOTE | 2023-06-03 14:31 | HMH.PTWOUND ---
Rehab Inpt Wound Evaluation Rehab IP Wound Evaluation Start: 06/02/23 18:17 Freq: ONCE Status: Active Protocol: Document 06/03/23 14:27 ARLEN (Rec: 06/03/23 14:31 PHORPOLO [id number]) Rehab PT Wound Assessment Subjective Subjective [address] [facility] with failure to thrive. Presented with wound to R hip and B knees upon admission. Family reports pt not out of bed for several days prior to adm and has been progressively weaker for several weeks. Wound Right Hip Wound Type Pressure Ulcer Is This a Chronic Wound Yes Wound Staging Stage II Query Text:Stage I - Unbroken, red skin, no blanching. Stage II - Skin broken, superficial skin loss involving epidermis alone or also dermis. Partial loss of skin layers. Stage III - Pressure area involves epidermis, dermis and subcutaneous tissue, full thickness skin loss. Stage IV - Pressure area involves epidermis, subcutaneous tissue, bone and other supportive tissue. Full thickness skin loss with extensive destruction of underlying tissue and structures. Wound Length (cm) 3.0 Wound Width (cm) 3.0 Wound Depth (cm) 0.1 Wound Bed Appearance [place] Wound Margins Description Well Defined Surrounding Tissue Appearance [place] Wound Drainage Description Serous Drainage Amount Scant Primary Dressing Composite Comment bordered foam Dressing Change Patient Tolerance Tolerated Well Plan/Recommendation Comment All wounds are covered with appropriate dressings by nursing staff. No needs for debridement at this time. Continue wound care as needed by nursing staff. Eval Complexity Eval Charge Codes 84057 - High Complexity PHYSICIAN CERTIFICATION: I certify the specified therapy services for Salvatore Vizcaino JR are required, authorized, and reviewed every 30 days.
--- NOTE | 2023-06-03 15:00 | P.PN_ITS ---
Subjective *Date: 06/03/23 *Time: 15:00 Interval history: seen at bedside, he appears confused and not holding conversations Exam Data for Last 24 hours Vital signs and Labs for Last 24 Hours: Temp Pulse Resp BP Pulse Ox O2 Del Method 98.9 F 80 20 154/86 H 92 L Room Air 06/03/23 11:47 06/03/23 12:00 06/03/23 11:47 06/03/23 11:47 06/03/23 11:47 06/03/23 13:04 Laboratory Results - last 24 hr 06/02/23 15:15: Troponin I 0.04 H 06/03/23 06:10: WBC 6.0, RBC 4.47 L, Hgb 13.9 L D, Hct 41.2 L, MCV 92.3, MCH 31.1, MCHC 33.6, RDW 15.8, Plt Count 148, MPV 9.4, Neut % (Auto) 77.8, Lymph % (Auto) 14.5, [place] % (Auto) 6.5, Eos % (Auto) 0.3, Baso % (Auto) 1.0, Neut # (Auto) 4.6, Lymph # (Auto) 0.9, [place] # (Auto) 0.4, Eos # (Auto) 0.0, Baso # (Auto) 0.1, Sodium 138, Potassium 4.6, Chloride 106, Carbon Dioxide 26, Anion Gap 10.6, BUN 25 H, Creatinine 1.40 H, Estimated Creat Clear 34, Estimated GFR 48 L, Est GFR ( Amer) 58 L, Glucose 117 H, Calcium 9.5 I & O for Last 24 hours: Intake & Output 05/31/23 06/01/23 06/02/23 06/03/23 23:59 23:59 23:59 23:59 Intake Total 200 / 200 405 / 405 Balance 200 / 200 405 / 405 Weight 64.524 kg 64.61 kg Constitutional Constitutional: no acute distress *Routine HEENT Exam Head: Present normocephalic Eye: Present EOMI and PERRL ENT: Present mucous membranes moist *Routine Neck Exam Neck: Present supple; Absent lymphadenopathy *Routine Respiratory Exam Respiratory: Present CTA bilaterally *Routine Cardiovascular Exam Cardiovascular: Present RRR *Routine Abdominal Exam Abdominal: Present soft and normoactive bowel sounds; Absent tenderness *Routine Extremities Exam Extremities: Absent cyanosis, clubbing or edema *Routine Skin Exam Skin: Present warm; Absent rash *Routine Neurological Exam Neurological: Present alert Comments: AxO x 1 Assessment and Plan *Assessment and plan (1) Adult failure to thrive: Status: Acute Category: Medical Code(s): R62.7 - Adult failure to thrive (2) Cognitive decline: Status: Acute Category: Medical Code(s): R41.89 - Other symptoms and signs involving cognitive functions and awareness (3) Hyperlipidemia: Status: Chronic Qualifiers: Hyperlipidemia type: unspecified Qualified Code(s): E78.5 - Hyperlipi demia, unspecified Category: Medical Code(s): E78.5 - Hyperlipidemia, unspecified (4) Hypertension: Status: Chronic Qualifiers: Hypertension type: essential hypertension Qualified Code(s): I10 - Essential (primary) hypertension Category: Medical Code(s): I10 - Essential (primary) hypertension (5) Tobacco use: Status: Acute Category: Social Hx Code(s): Z72.0 - Tobacco use (6) COPD (chronic obstructive pulmonary disease): Status: Acute Category: Medical Code(s): J44.9 - Chronic obstructive pulmonary disease, unspecified Plan Patient is a 87-year-old male with past medical history of COPD, CKD atrial fibrillation hypertension hyperlipidemia CVA who presented to hospital due to not able to take care of himself and failure to thrive. Patient on arrival to the hospital was found in feces and urine. Patient denies any complaints nausea vomiting diarrhea. Patient family mentions he has been getting his medications. Patient otherwise denies fever chills diarrhea constipation dysuria. Assessment Adult failure to thrive Generalized weakness Suspect UTI Hypokalemia - imrpved COPD CKD Atrial fibrillation Hypertension Hyperlipidemia Plan Consult PT/OT Fall precautions Consult PT/OT Start IV Rocephin, follow-up on urine culture Monitor and replace electrolytes DVT prophylaxis-Lovenox Resume home medications DC pending SNF placement
[2023-06-03] MEDS: CEFTRIAXONE 1 GM 1 GM in 0.9 % SODIUM CHLORIDE 50 ML IV (15:43)
--- NOTE | 2023-06-03 17:49 | PC.NURSE ---
Patient turned from left hip to back throughout shift. VS stable and patient remained on room air. Patient confused, alert to person and place. Lung sounds fine crackles in bases. Patient choked on water and failed bedside swallow. MD aware and speech consulted. Ground mechanical soft and nectar thick liquid diet. IV antibiotics given, no reports of pain.
[2023-06-03] MEDS: QUETIAPINE 25MG TABLET 25 MG PO (20:35)
[2023-06-03] MEDS: PRAVASTATIN 40MG TAB 40 MG PO (20:36)
[2023-06-04] VITALS (7 sets, daily range): BP systolic 102–150; BP diastolic 52–72; PULSE 77–101; RESP 18–19; TEMP 36.6–36.9; O2SAT 92–98; BMI 22.4
--- NOTE | 2023-06-04 00:15 | PC.NURSE ---
pursed lip breathing, tachypnea, O2 88 on RA - 2LNC applied - lungs sounds inspiratory and expiratory rhonchi with audible wheezes - no edema or cyanosis - notified hospitalist, layla MAYBERRY
[2023-06-04] MEDS: LEVALBUTEROL 0.63MG/3ML NEB 0.630000000000000004 MG IH ×2 (00:27→05:25)
[2023-06-04 07:13] LABS: Basophils % 0.5 % (0.1-2.0); Eosinophils # 0.1 K/mm3 (0.0-0.4); Eosinophils % 1.3 % (0.1-12.0); Hematocrit 42.9 % (42.0-52.0); Hemoglobin 13.8 g/dL (14.1-18.0); Lymphocytes # 1.6 K/mm3 (0.7-4.5); Lymphocytes % 21.3 % (10-50); Mean Corpuscular HGB Conc 32.2 g/dL (31.8-35.4); Mean Corpuscular Hemoglobin 30.3 pg (27.0-31.2); Mean Corpuscular Volume 94.2 fl (80-94); Mean Platelet Volume 8.2 fl (7.4-10.4); Monocytes # 0.5 K/mm3 (0.1-1.0); Monocytes % 6.1 % (1.7-9.3); Neutrophils # 5.4 K/mm3 (1.8-7.8); Neutrophils % 70.8 % (37.0-80.0); Platelet Count 154 K/mm3 (142-424); Red Blood Count 4.55 M/mm3 (4.60-6.20); Red Cell Distribution Width 15.6 % (11.5-17.5); White Blood Count 7.6 K/mm3 (4.8-10.8)
[2023-06-04 07:15] LABS: Chloride 106 mmol/L (98-107); Sodium 139 mmol/L (136-145)
[2023-06-04 07:16] LABS: Potassium 4.1 mmoL/L (3.5-5.1)
[2023-06-04 07:18] LABS: Blood Urea Nitrogen 26 mg/dl (9-20)
[2023-06-04 07:19] LABS: Anion Gap 10.1 mEq/L (5-15); Calcium 9.2 mg/dl (8.4-10.2); Carbon Dioxide 27 mmol/L (22.0-30.0); Creatinine Clearance Estimated 38 mL/min (50-200); Estimated Glomerular Filt Rate 52 ml/min (>60); GFR (African American) 63 ML/MIN (>60); Glucose 103 mg/dl (74-100)
[2023-06-04] MEDS: IRBESARTAN 75MG TABLET 75 MG PO (08:16)
[2023-06-04] MEDS: CHOLECALCIFEROL 1,000 UNITS (25MCG) TABLET 50 MCG PO (08:16)
[2023-06-04] MEDS: HEPARIN SODIUM 5,000 UNIT/ML VIAL 5000 UNIT SQ (08:17)
[2023-06-04] MEDS: METOPROLOL TARTRATE 25MG TABLET 25 MG PO (08:17)
[2023-06-04] MEDS: ASPIRIN EC 81MG TABLET 81 MG PO (08:17)
--- NOTE | 2023-06-04 10:29 | P.DS_ITS ---
General Admission date:: 06/02/23 Discharge date: 06/04/23 HPI HPI HPI: Patient is a 87-year-old male with past medical history of COPD, CKD atrial fibrillation hypertension hyperlipidemia CVA who presented to hospital due to not able to take care of himself and failure to thrive. Patient on arrival to the hospital was found in feces and urine. Patient denies any complaints nausea vomiting diarrhea. Patient family mentions he has been getting his medications. Patient otherwise denies fever chills diarrhea constipation dysuria. Exam Data for Last 24 hours Vital signs and Labs for Last 24 Hours: Temp Pulse Resp BP Pulse Ox O2 Del Method O2 Flow Rate 98.2 F 101 H 19 150/72 H 97 Nasal Cannula 2 06/04/23 07:42 06/04/23 07:42 06/04/23 07:42 06/04/23 07:42 06/04/23 08:00 06/04/23 10:21 06/04/23 10:21 Laboratory Results - last 24 hr 06/04/23 06:54: WBC 7.6 D, RBC 4.55 L, Hgb 13.8 L, Hct 42.9, MCV 94.2 H, MCH 30.3, MCHC 32.2, RDW 15.6, Plt Count 154, MPV 8.2, Neut % (Auto) 70.8, Lymph % (Auto) 21.3, [place] % (Auto) 6.1, Eos % (Auto) 1.3, Baso % (Auto) 0.5, Neut # (Auto) 5.4, Lymph # (Auto) 1.6, [place] # (Auto) 0.5, Eos # (Auto) 0.1, Baso # (Auto) 0.0, Sodium 139, Potassium 4.1, Chloride 106, Carbon Dioxide 27, Anion Gap 10.1, BUN 26 H, Creatinine 1.30 H, Estimated Creat Clear 38, Estimated GFR 52 L, Est GFR ( Amer) 63, Glucose 103 H, Calcium 9.2 I & O for Last 24 hours: Intake & Output 06/01/23 06/02/23 06/03/23 06/04/23 23:59 23:59 23:59 23:59 Intake Total 200 / 200 675 / 675 50 / 50 Output Total 0 / 0 0 / 0 Balance 200 / 200 675 / 675 50 / 50 Weight 64.524 kg 64.61 kg 67.273 kg Constitutional Constitutional: no acute distress *Routine HEENT Exam Head: Present normocephalic Eye: Present EOMI and PERRL ENT: Present mucous membranes moist *Routine Neck Exam Neck: Present supple; Absent lymphadenopathy *Routine Respiratory Exam Respiratory: Present CTA bilaterally *Routine Cardiovascular Exam Cardiovascular: Present RRR *Routine Abdominal Exam Abdominal: Present soft and normoactive bowel sounds; Absent tenderness *Routine Extremities Exam Extremities: Absent cyanosis, clubbing or edema *Routine Skin Exam Skin: Present warm; Absent rash *Routine Neurological Exam Neurological: Present alert and oriented X3 Results Data Completed and Pending Labs on day of discharge: Labs from last 24 hours 06/04/23 06:54 WBC 7.6 D RBC 4.55 L Hgb 13.8 L Hct 42.9 MCV 94.2 H MCH 30.3 MCHC 32.2 RDW 15.6 Plt Count 154 MPV 8.2 Neut % (Auto) 70.8 Lymph % (Auto) 21.3 [place] % (Auto) 6.1 Eos % (Auto) 1.3 Baso % (Auto) 0.5 Neut # (Auto) 5.4 Lymph # (Auto) 1.6 [place] # (Auto) 0.5 Eos # (Auto) 0.1 Baso # (Auto) 0.0 Sodium 139 Potassium 4.1 Chloride 106 Carbon Dioxide 27 Anion Gap 10.1 BUN 26 H Creatinine 1.30 H Estimated Creat Clear 38 Estimated GFR 52 L Est GFR ( Amer) 63 Glucose 103 H Calcium 9.2 DS: Diagnosis Discharge Diagnosis (1) Adult failure to thrive: Status: Acute Code(s): R62.7 - Adult failure to thrive (2) Cognitive decline: Status: Acute Code(s): R41.89 - Other symptoms and signs involving cognitive functions and awareness (3) Hyperlipidemia: Status: Chronic Code(s): E78.5 - Hyperlipidemia, unspecified Qualifiers: Hyperlipidemia type: unspecified Qualified Code(s): E78.5 - Hy perlipidemia, unspecified (4) Hypertension: Status: Chronic Code(s): I10 - Essential (primary) hypertension Qualifiers: Hypertension type: essential hypertension Qualified Code(s): I10 - Essential (primary) hypertension (5) Tobacco use: Status: Acute Code(s): Z72.0 - Tobacco use (6) COPD (chronic obstructive pulmonary disease): Status: Acute Code(s): J44.9 - Chronic obstructive pulmonary disease, unspecified Meds Home Medications and Allergies Home Medications Medication Instructions Recorded Confirmed Type aspirin 81 mg tablet,delayed 81 mg PO DAILY Heart Health 06/02/23 06/02/23 History release cholecalciferol (vitamin D3) 50 50 mcg PO DAILY Supplement 06/02/23 06/02/23 History mcg (2,000 unit) capsule irbesartan 75 mg tablet 75 mg PO DAILY High Blood Pressure 06/02/23 06/02/23 History metoprolol tartrate 25 mg tablet 25 mg PO BID High Blood Pressure 06/02/23 06/02/23 History pravastatin 40 mg tablet 40 mg PO DAILY Cholesterol 06/02/23 06/02/23 History cefuroxime axetil 500 mg tablet 500 mg PO BID 7 days #14 tabs 06/04/23 Rx New Prescriptions to Start Prescriptions: cefuroxime axetil Ana Saeed Allergies Allergy/AdvReac Type Severity Reaction Status Date / Time No Known Allergies Allergy Verified 03/11/23 14:55 Discharge Plan Disposition Patient Disposition: [facility] Care Fac Condition: Fair Discharge Order Discharge Orders: Discharge Order (Routine); Ordered 06/04/23 Ordered By: Ana Saeed Follow up Plan Follow up with: Provider,Referral, [Primary Care Provider] - 2 weeks Prescriptions/Medication Reconciliation: New cefuroxime axetil 500 mg tablet 500 mg PO BID 7 Days Qty: 14 0RF Continued pravastatin 40 mg tablet 40 mg PO DAILY aspirin 81 mg tablet,delayed release (DR/EC) 81 mg PO DAILY irbesartan 75 mg tablet 75 mg PO DAILY metoprolol tartrate 25 mg tablet 25 mg PO BID cholecalciferol (vitamin D3) 50 mcg (2,000 unit) capsule 50 mcg PO DAILY Problem Reconciliation Problems Reviewed?: Yes Patient Discharge Instructions ACTIVITY: Ambulate as tolerated DIET: continue same diet Patient Instructions: DI for Failure to Thrive Providers Primary Care Provider: Provider,Referral Admit Provider: Ana Saeed Attending Provider: Ana Saeed
--- NOTE | 2023-06-04 10:30 | P.DS_ITS ---
General Admission date:: 06/02/23 HPI HPI HPI: Patient is a 87-year-old male with past medical history of COPD, CKD atrial fibrillation hypertension hyperlipidemia CVA who presented to hospital due to not able to take care of himself and failure to thrive. Patient on arrival to the hospital was found in feces and urine. Patient denies any complaints nausea vomiting diarrhea. Patient family mentions he has been getting his medications. Patient otherwise denies fever chills diarrhea constipation dysuria. Hospital Course Hospital Course Hospital Course: Patient is a 87-year-old male with past medical history of COPD, CKD atrial fibrillation hypertension hyperlipidemia CVA who presented to hospital due to not able to take care of himself and failure to thrive. Patient on arrival to the hospital was found in feces and urine. Patient denies any complaints nausea vomiting diarrhea. Patient family mentions he has been getting his medications. Patient otherwise denies fever chills diarrhea constipation dysuria. Assessment Adult failure to thrive Generalized weakness Suspect UTI Hypokalemia - improved COPD CKD Atrial fibrillation Hypertension Hyperlipidemia stable for DC to SNF, DC with oral Ceftin Exam Data for Last 24 hours Vital signs and Labs for Last 24 Hours: Temp Pulse Resp BP Pulse Ox O2 Del Method O2 Flow Rate 98.2 F 101 H 19 150/72 H 97 Nasal Cannula 2 06/04/23 07:42 06/04/23 07:42 06/04/23 07:42 06/04/23 07:42 06/04/23 08:00 06/04/23 10:21 06/04/23 10:21 Laboratory Results - last 24 hr 06/04/23 06:54: WBC 7.6 D, RBC 4.55 L, Hgb 13.8 L, Hct 42.9, MCV 94.2 H, MCH 30.3, MCHC 32.2, RDW 15.6, Plt Count 154, MPV 8.2, Neut % (Auto) 70.8, Lymph % (Auto) 21.3, [place] % (Auto) 6.1, Eos % (Auto) 1.3, Baso % (Auto) 0.5, Neut # (Auto) 5.4, Lymph # (Auto) 1.6, [place] # (Auto) 0.5, Eos # (Auto) 0.1, Baso # (Auto) 0.0, Sodium 139, Potassium 4.1, Chloride 106, Carbon Dioxide 27, Anion Gap 10.1, BUN 26 H, Creatinine 1.30 H, Estimated Creat Clear 38, Estimated GFR 52 L, Est GFR ( Amer) 63, Glucose 103 H, Calcium 9.2 I & O for Last 24 hours: Intake & Output 06/01/23 06/02/23 06/03/23 06/04/23 23:59 23:59 23:59 23:59 Intake Total 200 / 200 675 / 675 50 / 50 Output Total 0 / 0 0 / 0 Balance 200 / 200 675 / 675 50 / 50 Weight 64.524 kg 64.61 kg 67.273 kg Results Data Completed and Pending Labs on day of discharge: Labs from last 24 hours 06/04/23 06:54 WBC 7.6 D RBC 4.55 L Hgb 13.8 L Hct 42.9 MCV 94.2 H MCH 30.3 MCHC 32.2 RDW 15.6 Plt Count 154 MPV 8.2 Neut % (Auto) 70.8 Lymph % (Auto) 21.3 [place] % (Auto) 6.1 Eos % (Auto) 1.3 Baso % (Auto) 0.5 Neut # (Auto) 5.4 Lymph # (Auto) 1.6 [place] # (Auto) 0.5 Eos # (Auto) 0.1 Baso # (Auto) 0.0 Sodium 139 Potassium 4.1 Chloride 106 Carbon Dioxide 27 Anion Gap 10.1 BUN 26 H Creatinine 1.30 H Estimated Creat Clear 38 Estimated GFR 52 L Est GFR ( Amer) 63 Glucose 103 H Calcium 9.2 DS: Diagnosis Discharge Diagnosis (1) Adult failure to thrive: Status: Acute Code(s): R62.7 - Adult failure to thrive (2) Cognitive decline: Status: Acute Code(s): R41.89 - Other symptoms and signs involving cognitive functions and awareness (3) Hyperlipidemia: Status: Chronic Code(s): E78.5 - Hyperlipidemia, unspecified Qualifiers: Hyperlipidemia type: unspecified Qualified Code(s): E78.5 - Hyperlipidemia, unspecified (4) Hypertension: Status: Chronic Code(s): I10 - Essential (primary) hypertension Qualifiers: Hypertension type: essential hypertension Qualified Code(s): I10 - Essential (primary) hypertension (5) Tobacco use: Status: Acute Code(s): Z72.0 - Tobacco use (6) COPD (chronic obstructive pulmonary disease): Status: Acute Code(s): J44.9 - Chronic obstructive pulmonary disease, unspecified Meds Home Medications and Allergies Home Medications Medication Instructions Recorded Confirmed Type aspirin 81 mg tablet,delayed 81 mg PO DAILY Heart Health 06/02/23 06/02/23 History release cholecalciferol (vitamin D3) 50 50 mcg PO DAILY Supplement 06/02/23 06/02/23 History mcg (2,000 unit) capsule irbesartan 75 mg tablet 75 mg PO DAILY High Blood Pressure 06/02/23 06/02/23 History metoprolol tartrate 25 mg tablet 25 mg PO BID High Blood Pressure 06/02/23 06/02/23 History pravastatin 40 mg tablet 40 mg PO DAILY Cholesterol 06/02/23 06/02/23 History New Prescriptions to Start Prescriptions: Allergies Allergy/AdvReac Type Severity Reaction Status Date / Time No Known Allergies Allergy Verified 03/11/23 14:55 Discharge Plan Disposition Patient Disposition: [facility] Condition: Fair Discharge Order Discharge Orders: Discharge Order (Routine); Ordered 06/04/23 Ordered By: Ana Saeed Follow up Plan Follow up with: Provider,Referral, [Primary Care Provider] - 2 weeks Prescriptions/Medication Reconciliation: Continued pravastatin 40 mg tablet 40 mg PO DAILY aspirin 81 mg tablet,delayed release (DR/EC) 81 mg PO DAILY irbesartan 75 mg tablet 75 mg PO DAILY metoprolol tartrate 25 mg tablet 25 mg PO BID cholecalciferol (vitamin D3) 50 mcg (2,000 unit) capsule 50 mcg PO DAILY Problem Reconciliation Problems Reviewed?: Yes Patient Discharge Instructions ACTIVITY: Ambulate as tolerated DIET: continue same diet Patient Instructions: DI for Failure to Thrive Providers Primary Care Provider: Provider,Referral Admit Provider: Ana Saeed Attending Provider: Ana Saeed
--- NOTE | 2023-06-04 11:00 | PC.NURSE ---
Report called to guero padilla at [facility].
--- NOTE | 2023-06-04 12:26 | P.CONS_ITS ---
History of Present Illness *Admission Date: 06/02/23 [facility] Disclaimer: The information contained in this section may have been updated after the patient was seen, as this information can be updated by other users. Medical History Acute kidney failure Afib DIOR (acute kidney injury) Contracture of hand COPD (chronic obstructive pulmonary disease) Decreased functional mobility Dementia Falls HLD (hyperlipidemia) HTN (hypertension) Psoriasis PVD (peripheral vascular disease) Sepsis Stroke UTI (urinary tract infection) Wandering atrial pacemaker Weakness Social History Smoking Status: Current every day smoker tobacco type: cigarettes packs per day: 2 second hand exposure: Yes alcohol intake: never substance use type: denies use current occupational status: retired Travel in the last 8 weeks: None household members: spouse housing: house current occupational exposures/hazards: No caffeine: No Review of Systems Review of Systems Review of systems (narrative): as per HPI Constitutional Constitutional: Reports system reviewed and no additional complaints, except as documented Eyes Eyes: Reports system reviewed and no additional complaints, except as documented ENT Ears, Nose, Mouth, and Throat: Reports system reviewed and no additional complaints, except as documented and Reports as per HPI *Cardiovascular Cardiovascular: Reports system reviewed and no additional complaints, except as documented and Reports as per HPI *Respiratory Respiratory: Reports system reviewed and no additional complaints, except as documented and Reports as per HPI *Gastrointestinal Gastrointestinal: Reports system reviewed and no additional complaints, except as documented and Reports as per HPI *Genitourinary Genitourinary: Reports system reviewed and no additional complaints, except as documented and Reports as per HPI *Musculoskeletal Musculoskeletal: Reports system reviewed and no additional complaints, except as documented, Reports as per HPI and Reports muscle weakness Integumentary/Breasts Skin/Breast: Reports system reviewed and no additional complaints, except as documented and Reports as per HPI *Neurologic Neurologic: Reports system reviewed and no additional complaints, except as documented and Reports as per HPI Psychiatric Psychiatric: Reports system reviewed and no additional complaints, except as documented and Reports as per HPI Endocrine Endocrine: Reports system reviewed and no additional complaints, except as documented and Reports as per HPI Hematologic/Lymphatic Hematologic/Lymphatic: Reports system reviewed and no additional complaints, except as documented and Reports as per HPI Allergic/Immunologic Allergic/Immunologic: Reports system reviewed and no additional complaints, except as documented and Reports as per [facility] Meds Home Medications and Allergies Home Medications Medication Instructions Recorded Confirmed Type aspirin 81 mg tablet,delayed 81 mg PO DAILY Heart Health 06/02/23 06/02/23 Hi story release cholecalciferol (vitamin D3) 50 50 mcg PO DAILY Supplement 06/02/23 06/02/23 Hi story mcg (2,000 unit) capsule irbesartan 75 mg tablet 75 mg PO DAILY High Blood Pressure 06/02/23 06/02/23 History metoprolol tartrate 25 mg tablet 25 mg PO BID High Blood Pressure 06/02/23 06/02/23 History pravastatin 40 mg tablet 40 mg PO DAILY Cholesterol 06/02/23 06/02/23 History cefuroxime axetil 500 mg tablet 500 mg PO BID 7 days #14 tabs 06/04/23 Rx New Prescriptions to Start Prescriptions: cefuroxime axetil Ana Saeed Allergies Allergy/AdvReac Type Severity Reaction Status Date / Time No Known Allergies Allergy Verified 03/11/23 14:55 Exam (Inpt) Vital signs and Labs for Last 24 Hours: Temp Pulse Resp BP Pulse Ox O2 Del Method O2 Flow Rate 98 F 77 19 111/57 L 94 L Room Air 2 06/04/23 11:40 06/04/23 11:40 06/04/23 11:40 06/04/23 11:40 06/04/23 11:40 06/04/23 11:40 06/04/23 10:21 Laboratory Results - last 24 hr 06/04/23 06:54: WBC 7.6 D, RBC 4.55 L, Hgb 13.8 L, Hct 42.9, MCV 94.2 H, MCH 30.3, MCHC 32.2, RDW 15.6, Plt Count 154, MPV 8.2, Neut % (Auto) 70.8, Lymph % (Auto) 21.3, [place] % (Auto) 6.1, Eos % (Auto) 1.3, Baso % (Auto) 0.5, Neut # (Auto) 5.4, Lymph # (Auto) 1.6, [place] # (Auto) 0.5, Eos # (Auto) 0.1, Baso # (Auto) 0.0, Sodium 139, Potassium 4.1, Chloride 106, Carbon Dioxide 27, Anion Gap 10.1, BUN 26 H, Creatinine 1.30 H, Estimated Creat Clear 38, Estimated GFR 52 L, Est GFR ( Amer) 63, Glucose 103 H, Calcium 9.2 I & O for Labs for Last 24 Hours: Intake & Output 06/01/23 06/02/23 06/03/23 06/04/23 23:59 23:59 23:59 23:59 Intake Total 200 / 200 675 / 675 50 / 50 Output Total 0 / 0 0 / 0 Balance 200 / 200 675 / 675 50 / 50 Weight 142 lb 4 oz 142 lb 7.051 oz 148 lb 5 oz Constitutional: Present no acute distress, thin and cooperative Head: Present normocephalic Neck: Present normal inspection Respiratory: Present normal respiratory effort and able to speak in complete sentences Cardiac: Present posterior tibial pulses present and pedal pulses present GI: Present soft Rectal (male): Present deferred (male): Present deferred Extremities: Present normal capillary refill, edema (No edema) and calf tender ness (No calf tenderness) Skin: Present intact, dry and warm Neuro: Present Sensory Function Intact, awake, tone normal and moves all extremities Ankle: bilateral: normal inspection and bilateral: decreased ROM Feet/Toes: bilateral: bunion, bilateral: hammer toe, bilateral: nail abnormalities (Very long and thick yellow discolored), bilateral: Ingrown Toenail and bilateral: onychomycosis Inspection: Present foot deformity deformity: Present hallux valgus and hammer toes and nail disorder Pulses: L dorsalis pedis pulse: normal, R dorsalis pedis pulse: normal, L posterior tibial pulse: normal and R posterior tibial pulse: normal CFT: normal: CFT Results Labs 06/04/23 06:54 06/04/23 06:54 Labs: Abnormal lab results 06/04/23 Range/Units 06:54 RBC 4.55 L (4.60-6.20) M/mm3 Hgb 13.8 L (14.1-18.0) g/dL MCV 94.2 H (80-94) fl BUN 26 H (9-20) mg/dl Creatinine 1.30 H (0.66-1.25) mg/dl Estimated GFR 52 L (>60) ml/min Glucose 103 H (74-100) mg/dl H & H 06/02/23 06/03/23 06/04/23 Range/Units 12:00 06:10 06:54 Hgb 16.5 13.9 L D 13.8 L (14.1-18.0) g/dL Hct 43.6 41.2 L 42.9 (42.0-52.0) % All other labs normal. Assessment and Plan *Assessment and plan (1) Onychogryposis: Status: Acute Category: Medical Code(s): L60.2 - Onychogryphosis (2) Onychomycosis: Status: Acute Category: Medical Code(s): B35.1 - Tinea unguium (3) Pain due to onychomycosis of nail: Status: Acute Category: Medical Code(s): B35.1 - Tinea unguium; M79.609 - Pain in unspecified limb (4) Acquired hallux valgus of both feet: Status: Acute Category: Medical Code(s): M20.11 - Hallux valgus (acquired), right foot; M20.12 - Hallux valgus (acquired), left foot (5) Acquired hammer toe: Status: Acute Category: Medical Code(s): M20.40 - Other hammer toe(s) (acquired), unspecified foot Plan Onychodystrophy onychomycosis/onychogryphosis plan: Mr. Salvatore Vizcaino 87-year-old male presents for podiatry consult for elongated toenails. Patient right third and fourth, left hallux and left second nails were very long and pressing into the skin leaving behind indentions but with no ulceration noted. The skin remains intact, I do not see any calluses that needed to be debrided. Patient did have some onychomycosis to the left hallux, left third, right hallux and right fourth toes that I was able to trim down. 1. Nails were debrided x?s 10 utilizing manual debridement with a nail nipper. 2. Patient tolerated the procedure well. 3. Recommend the use of amy board to file nails down and keep thinner. 4. Follow up in 3 months or as needed. 5. From a podiatry standpoint the patient is stable for discharge/placement at hospitalist discretion.
== END 2023-06-04 11:48 ==
LOC: ER 13:03 → 2ND 14:16
PROVIDERS: Admitting Provider Internal Medicine; Emergency Provider Emergency Medicine; Visit Provider Internal Medicine
DX: R62.7 Adult failure to thrive (principal); R41.89 Other symptoms and signs involving cognitive functions and awareness; E78.5 Hyperlipidemia, unspecified; I12.9 Hypertensive chronic kidney disease with stage 1 through stage 4 chronic kidney disease, or unspecified chronic kidney disease; F17.210 Nicotine dependence, cigarettes, uncomplicated; J44.9 Chronic obstructive pulmonary disease, unspecified; F03.90 Unspecified dementia, unspecified severity, without behavioral disturbance, psychotic disturbance, mood disturbance, and anxiety; I48.0 Paroxysmal atrial fibrillation; Z79.899 Other long term (current) drug therapy; M20.11 Hallux valgus (acquired), right foot; M20.12 Hallux valgus (acquired), left foot; N18.9 Chronic kidney disease, unspecified; I49.5 Sick sinus syndrome; D64.9 Anemia, unspecified; R06.02 Shortness of breath
CPT/HCPCS: 36415; 71045; 80048; 80053; 81001; 82803; 83605; 83690; 83735; 84439; 84443; 84484; 85025; 87086; 87636; 92610; 93005; 94640; 94760; 97163; 97165; 97530; 99285; G0378; J0696

== ENCOUNTER 2023-11-02 17:08 | Inpatient (IN) | payer OTHER, MEDICARE, SELFPAY ==
[2023-11-02] VITALS (10 sets, daily range): BP systolic 79–150; BP diastolic 41–70; PULSE 78–117; RESP 13–24; TEMP 36.5–36.9; O2SAT 95–99; BMI 23.4; BMI 16.9
--- NOTE | 2023-11-02 17:34 | ED_ITS ---
<Statement entered by Kelsie Cadena MD - 11/02/23 23:03> I was consulted by the KELVIN, and we discussed the complexity of the problems being addressed. I approved the treatment and management plan for this patient's care in the emergency department, thus performing a substantive portion of the medical decision making. Kelsie Cadena MD, BREN, FACEP Discharge Plan Disposition Patient Disposition: Admitted Condition: Critical Clinical Impressions Clinical Impression: Atrial fibrillation with rapid ventricular response, Acute confusion, Urinary tract infectious disease, Aspiration pneumonia, Multi-organ system dysfunction, Acute renal failure, Uremia Discharge ED Provider: Kelsie Cadena General Adult HPI <HEIDE Griffin - Last Filed: 11/02/23 20:05> General Chief complaint: Weakness Stated complaint: Altered Time Seen by Provider: 11/02/23 17:29 Mode of Arrival: EMS Source of Information: EMS Limitations: No Limitations Description of Symptoms (Recalled from ER Triage Doc. by RN): pt presents to ED from [facility]. facility states that pt has been confused and requiring more oxygen needs. History of Present Illness HPI narrative: Patient presents from senior care with a report of altered mental status. 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 I am not sure as we did not receive an adequate or specific report from nursing facility from which she was sent but reportedly has a history of pneumonia however he has a known history of high aspiration risk but I do not have any records to review at the time of my dictation. Currently patient arrives normotensive with a heart rate of 111 respiratory rate of 13 temp 98.5 satting at 96% on 3 L by nasal cannula and does have coarse breath sounds. Remainder of the review of systems is unobtainable due to the patient's nonverbal status. Related Data Home Medications Medication Instructions Recorded Confirmed aspirin 81 mg tablet,delayed 81 mg PO DAILY Heart Health 06/02/23 10/14/23 release cholecalciferol (vitamin D3) 50 50 mcg PO DAILY Supplement 06/02/23 10/14/23 mcg (2,000 unit) capsule irbesartan 75 mg tablet 75 mg PO DAILY High Blood Pressure 06/02/23 10/14/23 metoprolol tartrate 25 mg tablet 25 mg PO BID High Blood Pressure 06/02/23 10/14/23 pravastatin 40 mg tablet 40 mg PO DAILY Cholesterol 06/02/23 10/14/23 acetaminophen 500 mg tablet 500 mg PO Q6H PRN 08/06/23 10/14/23 (Tylenol Extra Strength) lactulose 20 gram/30 mL oral 20 g PO DAILY PRN 08/06/23 10/14/23 solution multivitamin 1 tab PO DAILY 08/06/23 10/14/23 ondansetron HCl 4 mg tablet 4 mg PO Q6H 08/06/23 10/14/23 Previous Rx's Medication Instructions Recorded famotidine 20 mg tablet (Pepcid) 20 mg PO BID 90 days #180 tabs 06/09/23 ceftriaxone 1 gram solution for 1 g IM DAILY 5 days #1 ea 10/27/23 injection levofloxacin 750 mg tablet 750 mg PO DAILY 5 days #5 tabs 10/27/23 Allergies Allergy/AdvReac Type Severity Reaction Status Date / Time No Known Allergies Allergy Verified 10/14/23 21:19 [facility] <HEIDE Griffin - Last Filed: 11/02/23 20:05> [facility] Disclaimer: The information contained in this section may have been updated after the patient was seen, as this information can be updated by other users. Medical History (Updated 11/02/23 @ 20:00 by HEIDE Griffin) Sinusitis Arrhythmia Cognitive communication deficit Dysphagia, pharyngeal phase Vitamin D deficiency Nicotine dependence Dysphagia Constipation Alcohol abuse History of sick sinus syndrome Paroxysmal atrial fibrillation Adult failure to thrive Cognitive decline CRF (chronic renal failure) Psoriasis Falls Contracture of hand Stroke PVD (peripheral vascular disease) HLD (hyperlipidemia) HTN (hypertension) Afib Sepsis Acute kidney failure DIOR (acute kidney injury) COPD (chronic obstructive pulmonary disease) UTI (urinary tract infection) Wandering atrial pacemaker Dementia Failure to thrive Dementia COPD (chronic obstructive pulmonary disease) Decreased mobility Tobacco use Decreased functional mobility Weakness PVD (peripheral vascular disease) Psoriasis Hypertension Hyperlipidemia Surgical History No history of previous surgery Social History Smoking Status: Former smoker tobacco type: cigarettes packs per day: 2 second hand exposure: Yes alcohol intake: never substance use type: denies use current occupational status: retired Travel in the last 8 weeks: None household members: spouse housing: house current occupational exposures/hazards: No caffeine: No <HEIDE Griffin - Last Filed: 11/02/23 20:05> ROS Obtained: Yes Systems reviewed as appropriate & no additional complaints except as documented Physical Exam <HEIDE Griffin - Last Filed: 11/02/23 20:05> General General appearance: alert and in no apparent distress Head Head exam: atraumatic Eye Eye exam: Present normal appearance ENT ENT exam: Absent normal exam (Patient is edentulous) Neck Neck exam: Present normal inspection and full ROM Chest Chest inspection: Present normal inspection and symmetric chest wall rise; Absent tenderness Respiratory Respiratory exam: Absent normal lung sounds bilaterally Cardiovascular Cardiovascular exam: Present normal rhythm and tachycardia Abdominal Exam Abdominal exam: Present soft and normal bowel sounds; Absent tenderness Neurological Exam Neurological exam: Present alert; Absent oriented X3 (Patient is awake but not following commands) Medical Decision Making <HEIDE Griffin - Last Filed: 11/02/23 20:05> Medical Records Medical records reviewed: Yes I reviewed the patient's medical records. [place] Inquiry Pt receiving controlled substance: No Vital Signs: 11/02/23 17:08 11/02/23 17:30 11/02/23 17:45 Temperature 98.5 F Temperature Source Oral Pulse Rate 100 H 112 H Pulse Rate [Left Radial] 111 H Respiratory Rate 13 16 Blood Pressure 111/63 Blood Pressure [Right Arm] 111/63 Blood Pressure Mean Blood Pressure Mean [Right Arm] 79 02 Sat by Pulse Oximetry 96 95 99 Oxygen Delivery Method Nasal Cannula Oxygen Flow Rate (LPM) 3 11/02/23 18:23 11/02/23 18:26 11/02/23 18:28 Temperature Temperature Source Pulse Rate 85 100 H Pulse Rate [Left Radial] Respiratory Rate 24 19 19 Blood Pressure 96/64 L 79/41 L 92/54 L Blood Pressure [Right Arm] Blood Pressure Mean 62 Blood Pressure Mean [Right Arm] 02 Sat by Pulse Oximetry 97 97 99 Oxygen Delivery Method Room Air Room Air Room Air Oxygen Flow Rate (LPM) 11/02/23 18:30 Temperature Temperature Source Pulse Rate 117 H Pulse Rate [Left Radial] Respiratory Rate 19 Blood Pressure 80/48 L Blood Pressure [Right Arm] Blood Pressure Mean 56 Blood Pressure Mean [Right Arm] 02 Sat by Pulse Oximetry 98 Oxygen Delivery Method Oxygen Flow Rate (LPM) Lab Data Lab results reviewed: Yes I reviewed the patient's lab results. Lab Results 11/02/23 17:36: VBG pH 7.41, VBG pCO2 30.0 L, VBG pO2 85.5 H, VBG HCO3 18.6 L, V BG Total CO2 19.5 L, VBG O2 Saturation 96.3 H, VBG Base Excess -6.0 L, VBG Lactic Acid 2.4 H 11/02/23 17:40: WBC 9.5, RBC 3.79 L, Hgb 11.9 L, Hct 36.9 L, MCV 97.2 H, MCH 31.2, MCHC 32.1, RDW 15.9, Plt Count 149, MPV 8.8, Neut % (Auto) 76.5, Lymph % (Auto) 15.8, [place] % (Auto) 6.2, Eos % (Auto) 0.9, Baso % (Auto) 0.4, Neut # (Auto) 7.3, Lymph # (Auto) 1.5, [place] # (Auto) 0.6, Eos # (Auto) 0.1, Baso # (Auto) 0.0, Sodium 148 H, Potassium 4.8, Chloride 113 H, Carbon Dioxide 20 L, A nion Gap 19.8 H, BUN 123 H*, Creatinine 6.40 H, Estimated Creat Clear 8, E stimated GFR 8 L*, Est GFR ( Amer) 10 L*, Glucose 113 H, Calcium 9.8, Total Bilirubin 0.4, AST 32, ALT 24, Alkaline Phosphatase 72, Total Protein 7.5, Albumin 3.5, Globulin 4.0 H, Albumin/Globulin Ratio 0.9 L, Procalcitonin 0.368 11/02/23 17:50: Urine Color Yellow, Urine Appearance Sl cloudy, Urine pH 5.5, Ur Specific [place] 1.025, Urine Protein Trace, Urine Glucose (UA) Negative, Urine Ketones Negative, Urine Blood 2+, Urine Nitrate Negative, Urine Bilirubin Negative, Urine Urobilinogen 0.2, Ur Leukocyte Esterase 2+ A, Urine RBC 10-20, Urine WBC 10-20, Ur Squamous Epith Cells Occasional, Urine Bacteria Trace 11/02/23 17:40 11/02/23 17:40 Orders (Tests/Meds): ED MEDICATIONS Generic Name Dose Route Start Last Admin Trade Name Freq PRN Reason Stop Dose Admin Vancomycin/PEG/NADA/Lysine/Water 1.25 gm in 250 mls @ 125 mls/hr 11/02/23 18:45 Vancomycin 1.25gm/250ml (Peg) Premix IV 11/02/23 20:44 ONCE ONE Lactated Ringer's 1,000 mls @ 999 mls/hr 11/02/23 19:32 Lactated Ringer's 1000 Ml Bag IV 11/02/23 20:32 .Q1H1M ONE Piperacillin Sod/Tazobactam 50 mls @ 100 mls/hr 11/02/23 23:55 Sod 2.25 gm/ Sodium Chloride IV 11/12/23 23:54 Q6H TRI Miscellaneous 1 each 11/02/23 18:45 Vancomycin Consult Request NOTAPPLIC 12/02/23 18:44 CONSULT PHARMACY TRI Discontinued Medications Generic Name Dose Route Start Last Admin Trade Name Freq PRN Reason Stop Dose Admin Acetaminophen 1,000 mg 11/02/23 17:34 11/02/23 17:57 Acetaminophen 1,000mg/100ml Vial IV 11/02/23 17:35 1,000 mg ONCE ONE Administration Lactated Ringer's 1,000 mls @ 999 mls/hr 11/02/23 17:34 11/02/23 17:57 Lactated Ringer's 1000 Ml Bag IV 11/02/23 18:34 999 mls/hr .Q1H1M ONE Administration Piperacillin Sod/Tazobactam 50 mls @ 100 mls/hr 11/02/23 18:34 11/02/23 18:43 Sod 3.375 gm/ Sodium Chloride IV 11/02/23 19:03 Not Given ONCE ONE Piperacillin Sod/Tazobactam 50 mls @ 100 mls/hr 11/02/23 18:43 11/02/23 19:20 Sod 3.375 gm/ Sodium Chloride IV 11/02/23 19:12 100 mls/hr ONCE ONE Administration ORDERS Category Date Time Status CT chest wo con Stat Cat Scan 11/02/23 17:[address] head/brain wo con Stat Cat Scan 11/02/23 17:42 Completed Basic Metabolic Panel Routine Lab 11/02/23 22:00 Ordered CBC w/Auto Diff [Complete Blood Count Auto Diff] Stat Lab 11/02/23 17:40 Completed CMP [Comprehensive Metabolic Panel] Stat Lab 11/02/23 17:40 Completed Complete Blood Count Auto Diff AMLAB Lab 11/03/23 06:00 Ordered Comprehensive Metabolic Panel AMLAB Lab 11/03/23 06:00 Ordered Full Resp Panel w/COVID ([facility]) Routine Lab 11/02/23 17:44 Received Magnesium AMLAB Lab 11/03/23 06:00 Ordered Procalcitonin Stat Lab 11/02/23 17:40 Completed UA [Urinalysis and Microscopic] Stat Lab 11/02/23 17:50 Completed Blood Culture Stat Micro 11/02/23 18:52 Received Urine Culture Stat Micro 11/02/23 17:50 Received VBG [Venous Blood Gas] Stat RT 11/02/23 17:36 Completed Tissue Perfus/Sepsis Re-Eval Sepsis Re-Evaluation Performed: Yes Date Performed: 11/02/23 Time Performed: 20:04 Medical Decision Narrative: In summary patient is a 87-year-old male who presents to the emergency department for evaluation of altered mental status. Patient is presenting with a blood pressure of 111/63 with a heart rate 111 upon arrival, satting at 96% on 3 L by nasal cannula and a temperature of 98.5. Physical exam shows a cachectic appearing lying in bed in the position 87-year-old male who otherwise does not appear to be in acute distress. Patient has coarse breath sounds right greater than left. I cannot elicit any pain response on palpation on exam.. Differential diagnosis includes aspiration pneumonia, ACS, stroke, UTI etc. Initial workup will be conducted with CT scan of the head and chest without contrast, hematologic labs, urinalysis.. Initial interventions include crystalloid bolus Tylenol until workup is complete for now. Initial workup reviewed by me shows significant laboratory derangements including uremia with a BUN of 123 acute renal failure creatinine of 6.4 and a GFR of 8 hyponatremia normal white count with no shift venous blood gas with a pH of 7.41 and a lactate of 2.4. My informal interpretation of his CT scan of the chest shows a right-sided pneumonia that is likely aspiration with no other acute process found in the brain or the chest prior to radiology read. Upon repeat evaluation Dr. Cadena and I had an interactive discussion with the family and you can see his addendum below but in summary, patient and family would not want aggressive care including dialysis and aggressive interventions. Thus we will be doing only IV antibiotics and IV fluids at the family's request. Given this had interactive discussion with hospital medicine regarding patient management and and they have agreed for admission for further evaluation and care. I performed a sepsis reperfusion and given our goals of care discussion with the family we will not be pursuing any more aggressive care including pressors to maintain perfusing blood pressure as the goals of care are just to keep the patient comfortable. This is Dr. Cadena at 7:05 PM I reviewed patient's labs and examined him also talked with his daughter and she states this is a dramatic change from his mental status at baseline which she is normally awake able to answer some questions and recognizes his family members. He is worsened over the last 48 hours. Patient has multiorgan dysfunction with acute encephalopathy, hypotension, severe renal failure, respiratory failure etc. He has multiorgan dysfunction in the setting of pneumonia which is likely aspirational as well as urinary tract infection. IV fluids and bank and Zosyn were ordered initially. I had a goals of care discussion with the patient's daughter brother and . Everyone agrees that they do not want dialysis for this patient, they do not want chest compressions or intubation therefore he is DNR and DNI. However they did state they would like him to have some IV fluids and antibiotics to see if he has any recovery or improvement but primarily they would like him to be kept comfortable and did not suffer and they realized that he is critically ill and dying. Therefore we will keep the patient at [facility] discussed the case with hospital medicine. <Kelsie Cadena MD - Last Filed: 11/02/23 19:06> Vital Signs: 11/02/23 17:08 11/02/23 17:30 11/02/23 17:45 Temperature 98.5 F Temperature Source Oral Pulse Rate 100 H 112 H Pulse Rate [Left Radial] 111 H Respiratory Rate 13 16 Blood Pressure 111/63 Blood Pressure [Right Arm] 111/63 Blood Pressure Mean Blood Pressure Mean [Right Arm] 79 02 Sat by Pulse Oximetry 96 95 99 Oxygen Delivery Method Nasal Cannula Oxygen Flow Rate (LPM) 3 11/02/23 18:23 11/02/23 18:26 11/02/23 18:28 Temperature Temperature Source Pulse Rate 85 100 H Pulse Rate [Left Radial] Respiratory Rate 24 19 19 Blood Pressure 96/64 L 79/41 L 92/54 L Blood Pressure [Right Arm] Blood Pressure Mean 62 Blood Pressure Mean [Right Arm] 02 Sat by Pulse Oximetry 97 97 99 Oxygen Delivery Method Room Air Room Air Room Air Oxygen Flow Rate (LPM) 11/02/23 18:30 Temperature Temperature Source Pulse Rate 117 H Pulse Rate [Left Radial] Respiratory Rate 19 Blood Pressure 80/48 L Blood Pressure [Right Arm] Blood Pressure Mean 56 Blood Pressure Mean [Right Arm] 02 Sat by Pulse Oximetry 98 Oxygen Delivery Method Oxygen Flow Rate (LPM) Lab Data Lab Results 11/02/23 17:36: VBG pH 7.41, VBG pCO2 30.0 L, VBG pO2 85.5 H, VBG HCO3 18.6 L, V BG Total CO2 19.5 L, VBG O2 Saturation 96.3 H, VBG Base Excess -6.0 L, VBG Lactic Acid 2.4 H 11/02/23 17:40: WBC 9.5, RBC 3.79 L, Hgb 11.9 L, Hct 36.9 L, MCV 97.2 H, MCH 31.2, MCHC 32.1, RDW 15.9, Plt Count 149, MPV 8.8, Neut % (Auto) 76.5, Lymph % (Auto) 15.8, [place] % (Auto) 6.2, Eos % (Auto) 0.9, Baso % (Auto) 0.4, Neut # (Auto) 7.3, Lymph # (Auto) 1.5, [place] # (Auto) 0.6, Eos # (Auto) 0.1, Baso # (Auto) 0.0, Sodium 148 H, Potassium 4.8, Chloride 113 H, Carbon Dioxide 20 L, A nion Gap 19.8 H, BUN 123 H*, Creatinine 6.40 H, Estimated Creat Clear 8, E stimated GFR 8 L*, Est GFR ( Amer) 10 L*, Glucose 113 H, Calcium 9.8, Total Bilirubin 0.4, AST 32, ALT 24, Alkaline Phosphatase 72, Total Protein 7.5, Albumin 3.5, Globulin 4.0 H, Albumin/Globulin Ratio 0.9 L, Procalcitonin 0.368 11/02/23 17:50: Urine Color Yellow, Urine Appearance Sl cloudy, Urine pH 5.5, Ur Specific [place] 1.025, Urine Protein Trace, Urine Glucose (UA) Negative, Urine Ketones Negative, Urine Blood 2+, Urine Nitrate Negative, Urine Bilirubin Negative, Urine Urobilinogen 0.2, Ur Leukocyte Esterase 2+ A, Urine RBC 10-20, Urine WBC 10-20, Ur Squamous Epith Cells Occasional, Urine Bacteria Trace Orders (Tests/Meds): ED MEDICATIONS Generic Name Dose Route Start Last Admin Trade Name Calixto PRN Reason Stop Dose Admin Vancomycin/PEG/[place]/Lysine/Water 1.25 gm in 250 mls @ 125 mls/hr 11/02/23 18:45 Vancomycin 1.25gm/250ml (Peg) Premix IV 11/02/23 20:44 ONCE ONE Lactated Ringer's 1,000 mls @ 999 mls/hr 11/02/23 19:32 Lactated Ringer's 1000 Ml Bag IV 11/02/23 20:32 .Q1H1M ONE Piperacillin Sod/Tazobactam 50 mls @ 100 mls/hr 11/02/23 23:55 Sod 2.25 gm/ Sodium Chloride IV 11/12/23 23:54 Q6H TRI Miscellaneous 1 each 11/02/23 18:45 Vancomycin Consult Request NOTAPPLIC 12/02/23 18:44 CONSULT PHARMACY TRI Discontinued Medications Generic Name Dose Route Start Last Admin Trade Name Calixto PRN Reason Stop Dose Admin Acetaminophen 1,000 mg 11/02/23 17:34 11/02/23 17:57 Acetaminophen 1,000mg/100ml Vial IV 11/02/23 17:35 1,000 mg ONCE ONE Administration Lactated Ringer's 1,000 mls @ 999 mls/hr 11/02/23 17:34 11/02/23 17:57 Lactated Ringer's 1000 Ml Bag IV 11/02/23 18:34 999 mls/hr .Q1H1M ONE Administration Piperacillin Sod/Tazobactam 50 mls @ 100 mls/hr 11/02/23 18:34 11/02/23 18:43 Sod 3.375 gm/ Sodium Chloride IV 11/02/23 19:03 Not Given ONCE ONE Piperacillin Sod/Tazobactam 50 mls @ 100 mls/hr 11/02/23 18:43 11/02/23 19:20 Sod 3.375 gm/ Sodium Chloride IV 11/02/23 19:12 100 mls/hr ONCE ONE Administration ORDERS Category Date Time Status CT chest wo con Stat Cat Scan 11/02/23 17:[address] head/brain wo con Stat Cat Scan 11/02/23 17:42 Completed Basic Metabolic Panel Routine Lab 11/02/23 22:00 Ordered CBC w/Auto Diff [Complete Blood Count Auto Diff] Stat Lab 11/02/23 17:40 Completed CMP [Comprehensive Metabolic Panel] Stat Lab 11/02/23 17:40 Completed Complete Blood Count Auto Diff AMLAB Lab 11/03/23 06:00 Ordered Comprehensive Metabolic Panel AMLAB Lab 11/03/23 06:00 Ordered Full Resp Panel w/COVID ([facility]) Routine Lab 11/02/23 17:44 Received Magnesium AMLAB Lab 11/03/23 06:00 Ordered Procalcitonin Stat Lab 11/02/23 17:40 Completed UA [Urinalysis and Microscopic] Stat Lab 11/02/23 17:50 Completed Blood Culture Stat Micro 11/02/23 18:52 Received Urine Culture Stat Micro 11/02/23 17:50 Received VBG [Venous Blood Gas] Stat RT 11/02/23 17:36 Completed Medical Decision Narrative: In summary patient is a 87-year-old male who presents to the emergency department for evaluation of altered mental status. Patient is presenting with a blood pressure of 111/63 with a heart rate 111 upon arrival, satting at 96% on 3 L by nasal cannula and a temperature of 98.5. Physical exam shows a cachectic appearing lying in bed in the position 87-year-old male who otherwise does not appear to be in acute distress. Patient has coarse breath sounds right greater than left. I cannot elicit any pain response on palpation on exam.. Differential diagnosis includes aspiration pneumonia, ACS, stroke, UTI etc. Initial workup will be conducted with CT scan of the head and chest without contrast, hematologic labs, urinalysis.. Initial interventions include crystalloid bolus Tylenol until workup is complete for now. Initial workup reviewed by me [hematologic labs are remarkable for... Imaging remarkable for... Urinalysis remarkable for]. Upon repeat evaluation [patient had acceptable resolution of symptoms, had persistent pain for which additional interventions were conducted (describe interventions), tolerated p.o., was ambulatory, etc.]. Given this [patient is appropriate for discharge at this time and will be discharged with a prescription for... The case was discussed with hospital medicine regarding management and they will admit the patient their service for continued evaluation at this time... Etc.] This is Dr. Cadena at 7:05 PM I reviewed patient's labs and examined him also talked with his daughter and she states this is a dramatic change from his mental status at baseline which she is normally awake able to answer some questions and recognizes his family members. He is worsened over the last 48 hours. Patient has multiorgan dysfunction with acute encephalopathy, hypotension, severe renal failure, respiratory failure etc. He has multiorgan dysfunction in the setting of pneumonia which is likely aspirational as well as urinary tract infection. IV fluids and bank and Zosyn were ordered initially. I had a goals of care discussion with the patient's daughter brother and . Everyone agrees that they do not want dialysis for this patient, they do not want chest compressions or intubation therefore he is DNR and DNI. However they did state they would like him to have some IV fluids and antibiotics to see if he has any recovery or improvement but primarily they would like him to be kept comfortable and did not suffer and they realized that he is critically ill and dying. Therefore we will keep the patient at [facility] discussed the case with hospital medicine. Critical Care <HEIDE Griffin - Last Filed: 11/02/23 20:05> Critical Care Time Critical Care Time: Yes Attestation: On 11/02/23, the high probability of a clinically significant, sudden or life threatening deterioration of the following system(cardiopulmonary) required my full and direct attention, intervention and personal management. The time I documented below is in addition to time spent performing reported procedures but includes the following listed in this critical care notation. Total Time Total Critical Care Time: 30
--- NOTE | 2023-11-02 17:42 | CT_ITS ---
PROCEDURE INFORMATION: Exam: CT Chest Without Contrast; Diagnostic Exam date and time: 11/02/2023 6:09 PM Age: 87 years old Clinical indication: Other: AMS; Additional info: Altered mental status TECHNIQUE: Imaging protocol: Diagnostic computed tomography of the chest without contrast. Radiation optimization: All CT scans at this facility use at least one of these dose optimization techniques: automated exposure control; mA and/or kV adjustment per patient size (includes targeted exams where dose is matched to clinical indication); or iterative reconstruction. COMPARISON: CR XR CHEST PORTABLE 06/02/2023 12:35 PM FINDINGS: Lungs: Moderate scattered interstitial and ground-glass infiltrate in the right upper, middle and lower lobes. Minimal subpleural ground-glass opacity left lung. Pleural spaces: Unremarkable. No pneumothorax. No pleural effusion. Heart: Unremarkable. No cardiomegaly. No pericardial effusion. Coronary arteries: Diffuse dense coronary artery calcifications. Lymph nodes: Unremarkable. No enlarged lymph nodes. Vasculature: Dilation of the ascending thoracic aorta measuring 4.5 cm in greatest diameter. Diffuse dense atherosclerotic calcification of the aorta. Partially visualized abdominal aortic aneurysm measuring at least 4 cm in diameter. Liver: Scattered low-density small lesions throughout the liver, likely cysts. Gallbladder and biliary ducts: Gallbladder appears moderately distended. Kidneys and ureters: Partially visualized bilateral hydronephrosis and multiple renal cortical lesions, likely cysts. Bones/joints: Moderate degenerative changes throughout the lower thoracic spine and upper lumbar spine. No vertebral body compression or acute fracture. Soft tissues: Unremarkable. IMPRESSION: 1. Patchy ground-glass and interstitial infiltrate throughout the right lung. Asymmetric appearance raises concern for acute pneumonitis with suspected underlying at least mild chronic pulmonary changes 2. Significant atherosclerotic changes including aneurysmal dilation of the ascending thoracic aorta and proximal abdominal aorta and significant coronary artery calcifications 3. Bilateral hydronephrosis and renal cortical lesions favored to represent cysts as well as distended gallbladder and likely hepatic cysts in the upper abdomen. COMMENTS: Consistent with the [employer]'s Incidental Findings Committee white paper (J Am Carlos Radiol 2018): Any incidental renal lesion less than 1 cm or classified as too small to characterize, or any incidental cystic renal lesion characterized as simple-appearing, is likely benign. No follow-up imaging is recommended for these lesions per consensus recommendations based on imaging criteria.
--- NOTE | 2023-11-02 17:42 | CT_ITS ---
PROCEDURE INFORMATION: Exam: CT Head Without Contrast Exam date and time: 11/02/2023 6:06 PM Age: 87 years old Clinical indication: Altered mental status/memory loss TECHNIQUE: Imaging protocol: Computed tomography of the head without contrast. Radiation optimization: All CT scans at this facility use at least one of these dose optimization techniques: automated exposure control; mA and/or kV adjustment per patient size (includes targeted exams where dose is matched to clinical indication); or iterative reconstruction. COMPARISON: MR HEAD/BRAIN WO CON 02/14/2020 3:15 PM FINDINGS: Limitations: Motion artifact. Brain: No acute intracranial hemorrhage, midline shift or mass effect. Diffuse brain parenchymal volume loss. Moderate hypodensities within the cerebral white matter most consistent with chronic small-vessel ischemic changes. Old bilateral basal ganglia lacunar infarcts. Cerebral ventricles: Ex vacuo dilatation of the ventricles. Paranasal sinuses: Left maxillary mucous retention cyst. Mastoid air cells: Visualized mastoid air cells are well aerated. Bones: Unremarkable. No acute fracture. Soft tissues: Unremarkable. IMPRESSION: Motion limited exam. No acute intracranial findings.
[2023-11-02 17:49] LABS: VBG HCO3 18.6 mmol/L (23-30); VBG Oxygen Saturation 96.3 % (50-70); VBG PH 7.41 mmol/L (7.31-7.41); VBG PO2 85.5 mmol/L (28-40); VBG Total CO2 19.5 mmol/L (23-27)
[2023-11-02 17:50] LABS: Basophils % 0.4 % (0.1-2.0); Eosinophils # 0.1 K/mm3 (0.0-0.4); Eosinophils % 0.9 % (0.1-12.0); Hematocrit 36.9 % (42.0-52.0); Hemoglobin 11.9 g/dL (14.1-18.0); Lymphocytes # 1.5 K/mm3 (0.7-4.5); Lymphocytes % 15.8 % (10-50); Mean Corpuscular HGB Conc 32.1 g/dL (31.8-35.4); Mean Corpuscular Hemoglobin 31.2 pg (27.0-31.2); Mean Corpuscular Volume 97.2 fl (80-94); Mean Platelet Volume 8.8 fl (7.4-10.4); Monocytes # 0.6 K/mm3 (0.1-1.0); Monocytes % 6.2 % (1.7-9.3); Neutrophils # 7.3 K/mm3 (1.8-7.8); Neutrophils % 76.5 % (37.0-80.0); Platelet Count 149 K/mm3 (142-424); Red Blood Count 3.79 M/mm3 (4.60-6.20); Red Cell Distribution Width 15.9 % (11.5-17.5); White Blood Count 9.5 K/mm3 (4.8-10.8)
[2023-11-02 17:51] LABS: Lactate Venous 2.4 mmol/L (0.4-2.0)
[2023-11-02] MEDS: LACTATED RINGERS 1000ML 1,000 ML 999 ML IV (17:57)
[2023-11-02] MEDS: ACETAMINOPHEN 1,000MG/100ML VIAL 1000 MG IV (17:57)
--- NOTE | 2023-11-02 17:59 | PC.NURSE ---
pt to scan via stretcher
[2023-11-02 18:06] LABS: Adenovirus,PCR Not Detected (NotDetected); Bordetella Pertussis Not Detected (NotDetected); Chlamydophila Pneumoniae, PCR Not Detected (NotDetected); Coronavirus 19, PCR Not Detected (NotDetected); Coronavirus 229E Not Detected (NotDetected); Coronavirus NL63 Not Detected (NotDetected); Coronavirus OC43 Not Detected (NotDetected); Coronovirus HKU1,PCR Not Detected (NotDetected); Human Metapneumovirus Not Detected (NotDetected); Influenza A, PCR Not Detected (NotDetected); Influenza AH1, 2009 Not Detected (NotDetected); Influenza AH1, PCR Not Detected (NotDetected); Influenza AH3,PCR Not Detected (NotDetected); Influenza B, PCR Not Detected (NotDetected); Mycoplasma Pneumoniae, PCR Not Detected (NotDetected); Parainfluenza 1, PCR Not Detected (NotDetected); Parainfluenza 2, PCR Not Detected (NotDetected); Parainfluenza 3, PCR Not Detected (NotDetected); Parainfluenza 4, PCR Not Detected (NotDetected); Respiratory Syncytial Virus Not Detected (NotDetected); Rhinovirus/Enterovirus Not Detected (NotDetected)
[2023-11-02 18:12] LABS: Microscopic, Urine URINE MICROSCOPIC (MICROSCOPIC)
--- NOTE | 2023-11-02 18:21 | ECG_ITS ---
APPROVED REPORT Exam: Resting ECG HR:117 bpm ECG Measurements Heart Rate 117 AXES QRSd 95 QRS 76 QT 322 T -69 QTc 391 Conclusion ATRIAL FIBRILLATION WITH RAPID VENTRICULAR RESPONSE ST DEVIATION AND MODERATE T-WAVE ABNORMALITY, CONSIDER LATERAL ISCHEMIA [-0.1+ mV T-WAVE IN I/aVL/V5/V6] ST DEVIATION AND MODERATE T-WAVE ABNORMALITY, CONSIDER INFERIOR ISCHEMIA [-0.1+ mV T-WAVE IN II/aVF] ABNORMAL ECG UNCONFIRMED REPORT Electronically signed by : German Cadena, 11/02/2023 23:10:11
[2023-11-02 18:25] LABS: Appearance,Urine SL CLOUDY (Clear); Bilirubin,Urine Negative (Negative); Blood, Urine 2+ (Negative); Color,Urine YELLOW (Yellow); Glucose,Urine (UA) Negative (Negative); Ketones,Urine Negative (Negative); Leukocyte Esterase,Urine 2+ (Negative); Nitrate,Urine Negative (Negative); PH,Urine 5.5 (5.0-8.5); Protein,Urine TRACE (Negative); Specific Gravity, Urine 1.025 (1.005-1.030); Urobilinogen,Urine 0.2 EU/dl (0.2)
[2023-11-02 18:33] LABS: Chloride 113 mmol/L (98-107); Potassium 4.8 mmoL/L (3.5-5.1); Sodium 148 mmol/L (136-145)
[2023-11-02 18:35] LABS: Creatinine Clearance Estimated 8 mL/min (50-200); Estimated Glomerular Filt Rate 8 ml/min (>60); GFR (African American) 10 ML/MIN (>60)
[2023-11-02 18:36] LABS: Alanine Aminotransferase 24 U/L (12-78); Albumin Level 3.5 g/dl (3.5-5.0); Albumin/Globulin Ratio 0.9 (1.1-1.8); Alkaline Phosphatase 72 U/L (38-126); Anion Gap 19.8 mEq/L (5-15); Aspartate Amino Transferase 32 U/L (17-59); Bilirubin,Total 0.4 mg/dl (0.2-1.3); Carbon Dioxide 20 mmol/L (22.0-30.0); Total Protein,Serum 7.5 g/dl (6.3-8.2)
[2023-11-02 18:37] LABS: Calcium 9.8 mg/dl (8.4-10.2); Glucose 113 mg/dl (74-100)
[2023-11-02 18:38] LABS: Bacteria,Urine Trace /lpf; Squamous Epithelial Cell,Urine Occasional #/hpf (0-5)
[2023-11-02 18:46] LABS: Blood Urea Nitrogen 123 mg/dl (9-20)
[2023-11-02 19:09] LABS: Procalcitonin 0.368 ng/mL (0.0-2.0)
[2023-11-02] MEDS: PIPERACILLIN/TAZO 3.375 GM in 0.9 % SODIUM CHLORIDE 50 ML IV (19:20)
--- NOTE | 2023-11-02 19:39 | PC.NURSE ---
Admissions notified for admisison
--- NOTE | 2023-11-02 19:47 | PC.NURSE ---
Report called to SPENSER Renteria
--- NOTE | 2023-11-02 19:49 | PC.NURSE ---
DNR is in place and has been signed by MD and family.
--- NOTE | 2023-11-02 20:00 | P.HP_ITS ---
History of Present Illness *Admission Date: 11/02/23 *Reason for visit:: AMS *History of present illness: This is a 87yo frail gentleman long term resident with PMHx of extensive comorbidities, included but not limited to being 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 Patient presented on this admission for evaluation of altered mental status. Patient reportedly has a history of pneumonia due to known high aspiration risk. His tory obtained form family at bedside. Patient has been declining progressively over the past couple months, however in the last two or three day has became less interactive. Remainder of the review of systems is unobtainable due to the patient's nonverbal status. Admitted for further management. [facility] Disclaimer: The information contained in this section may have been updated after the patient was seen, as this information can be updated by other users. Medical History (Updated 11/03/23 @ 04:57 by Gautam Renteria APRN) Sinusitis Arrhythmia Cognitive communication deficit Dysphagia, pharyngeal phase Vitamin D deficiency Nicotine dependence Dysphagia Constipation Alcohol abuse History of sick sinus syndrome Paroxysmal atrial fibrillation Adult failure to thrive Cognitive decline CRF (chronic renal failure) Psoriasis Falls Contracture of hand Stroke PVD (peripheral vascular disease) HLD (hyperlipidemia) HTN (hypertension) Afib Sepsis Acute kidney failure DIOR (acute kidney injury) COPD (chronic obstructive pulmonary disease) UTI (urinary tract infection) Wandering atrial pacemaker Dementia Failure to thrive Dementia COPD (chronic obstructive pulmonary disease) Decreased mobility Tobacco use Decreased functional mobility Weakness PVD (peripheral vascular disease) Psoriasis Hypertension Hyperlipidemia Surgical History No history of previous surgery Social History Smoking Status: Former smoker tobacco type: cigarettes packs per day: 2 second hand exposure: Yes alcohol intake: never substance use type: denies use current occupational status: retired Travel in the last 8 weeks: None household members: spouse housing: house current occupational exposures/hazards: No caffeine: No Review of Systems Review of Systems Review of systems:: unable to obtain Meds Home Medications and Allergies Home Medications Medication Instructions Recorded Confirmed Type cholecalciferol (vitamin D3) 50 50 mcg PO DAILY 06/02/23 11/03/23 History mcg (2,000 unit) capsule irbesartan 75 mg tablet 75 mg PO DAILY 06/02/23 11/03/23 History metoprolol tartrate 25 mg tablet 25 mg PO BID 06/02/23 11/03/23 History pravastatin 40 mg tablet 40 mg PO HS 06/02/23 11/03/23 History famotidine 20 mg tablet (Pepcid) 20 mg PO BID 90 days #180 tabs 06/09/23 11/03/23 Rx acetaminophen 500 mg tablet 500 mg PO Q4HP PRN pain/fever 08/06/23 11/03/23 History (Tylenol Extra Strength) lactulose 20 gram/30 mL oral 20 g PO DAILY PRN Constipation 08/06/23 11/03/23 History solution multivitamin 1 tab PO DAILY 08/06/23 11/03/23 History ondansetron HCl 4 mg tablet 4 mg PO Q6H PRN Nausea 08/06/23 11/03/23 History aspirin 81 mg chewable tablet 81 mg PO DAILY 11/03/23 11/03/23 History New Prescriptions to Start Prescriptions: Allergies Allergy/AdvReac Type Severity Reaction Status Date / Time No Known Allergies Allergy Verified 10/14/23 21:19 Exam Data for Last 24 hours Vital signs and Labs for Last 24 Hours: Temp Pulse Resp BP Pulse Ox O2 Del Method O2 Flow Rate 98.5 F 117 H 19 80/48 L 98 Room Air 3 11/02/23 17:08 11/02/23 18:30 11/02/23 18:30 11/02/23 18:30 11/02/23 18:30 11/02/23 18:28 11/02/23 17:08 Laboratory Results - last 24 hr 11/02/23 17:36: VBG pH 7.41, VBG pCO2 30.0 L, VBG pO2 85.5 H, VBG HCO3 18.6 L, VBG Total CO2 19.5 L, VBG O2 Saturation 96.3 H, VBG Base Excess -6.0 L, VBG Lactic Acid 2.4 H 11/02/23 17:40: WBC 9.5, RBC 3.79 L, Hgb 11.9 L, Hct 36.9 L, MCV 97.2 H, MCH 31.2, MCHC 32.1, RDW 15.9, Plt Count 149, MPV 8.8, Neut % (Auto) 76.5, Lymph % (Auto) 15.8, [place] % (Auto) 6.2, Eos % (Auto) 0.9, Baso % (Auto) 0.4, Neut # (Auto) 7.3, Lymph # (Auto) 1.5, [place] # (Auto) 0.6, Eos # (Auto) 0.1, Baso # (Auto) 0.0, Sodium 148 H, Potassium 4.8, Chloride 113 H, Carbon Dioxide 20 L, Anion Gap 19.8 H, BUN 123 H*, Creatinine 6.40 H, Estimated Creat Clear 8, Estimated GFR 8 L*, Est GFR ( Amer) 10 L*, Glucose 113 H, Calcium 9.8, Total Bilirubin 0.4, AST 32, ALT 24, Alkaline Phosphatase 72, Total Protein 7.5, Albumin 3.5, Globulin 4.0 H, Albumin/Globulin Ratio 0.9 L, Procalcitonin 0.368 11/02/23 17:50: Urine Color Yellow, Urine Appearance Sl cloudy, Urine pH 5.5, Ur Specific Virgin 1.025, Urine Protein Trace, Urine Glucose (UA) Negative, Urine Ketones Negative, Urine Blood 2+, Urine Nitrate Negative, Urine Bilirubin Negative, Urine Urobilinogen 0.2, Ur Leukocyte Esterase 2+ A, Urine RBC 10-20, Urine WBC 10-20, Ur Squamous Epith Cells Occasional, Urine Bacteria Trace Temp Pulse Resp BP Pulse Ox O2 Del Method 97.7 F 73 28 H 129/97 H 93 L Room Air 06/02/23 14:46 06/02/23 14:46 06/02/23 14:46 06/02/23 14:46 06/02/23 14:46 06/02/23 14:46 Laboratory Results - last 24 hr 06/02/23 11:50: VBG pH 7.33, VBG pCO2 49.9, VBG pO2 31.7, VBG HCO3 25.5, VBG Total CO2 27.0, VBG O2 Saturation 55.1, VBG Base Excess -0.5 06/02/23 12:00: WBC 6.1, RBC 4.73, Hgb 16.5, Hct 43.6, MCV 92.2, MCH 35.0 H, MCHC 37.9 H, RDW 15.5, Plt Count 148, MPV 8.9, Neut % (Auto) 75.9, Lymph % (Auto) 17.7, [place] % (Auto) 5.2, Eos % (Auto) 0.8, Baso % (Auto) 0.4, Neut # (Auto) 4.6, Lymph # (Auto) 1.1, [place] # (Auto) 0.3, Eos # (Auto) 0.1, Baso # (Auto) 0.0, Sodium 139, Potassium 5.5 H, Chloride 101, Carbon Dioxide 29, Anion Gap 14.5, BUN 26 H, Creatinine 1.40 H, Estimated Creat Clear 33, Estimated GFR 48 L, Est GFR ( Amer) 58 L, Glucose 104 H, Calcium 10.4 H, Magnesium 2.2, Total Bilirubin 1.4 H, AST 130 H, ALT 47, Alkaline Phosphatase 104, Troponin I 0.05 H, Total Protein 8.8 H, Albumin 4.6, Globulin 4.2 H, Albumin/Globulin Ratio 1.1, Lipase 138, TSH 1.43, Free T4 1.55 06/02/23 12:01: Urine Color Yellow, Urine Appearance Clear, Urine pH 6.0, Ur Specific Virgin 1.025, Urine Protein Trace, Urine Glucose (UA) Negative, Urine Ketones Trace, Urine Blood 3+, Urine Nitrate Negative, Urine Bilirubin Negative, Urine Urobilinogen 0.2, Ur Leukocyte Esterase 2+ A, Urine RBC 10-20, Urine WBC 10-20, Ur Squamous Epith Cells Occasional, Urine Bacteria 3+ 06/02/23 12:13: SARS-CoV-2 (PCR) Not detected, Influenza A Untype (PCR) Not detected, Influenza Type B (PCR) Not detected 06/02/23 12:24: Lactate 1.8 06/02/23 15:15: Troponin I 0.04 H I & O for Last 24 hours: Intake & Output 10/30/23 10/31/23 11/01/23 11/02/23 23:59 23:59 23:59 23:59 Weight 72.121 kg Intake & Output 05/30/23 05/31/23 06/01/23 06/02/23 23:59 23:59 23:59 23:59 Weight 64.524 kg Constitutional Constitutional: cachectic, chronically ill appearing and obtunded Comments: appears weak, disheveled, frail *Routine HEENT Exam Head: Present normocephalic Eye: Present EOMI and PERRL ENT: Present mucous membranes moist *Routine Neck Exam Neck: Present supple; Absent lymphadenopathy *Routine Respiratory Exam Respiratory: Present CTA bilaterally, respiratory distress and diminished air movement *Routine Cardiovascular Exam Cardiovascular: Present Normal S1, Normal S2, tachycardia and irregularly irregular *Routine Abdominal Exam Abdominal: Present soft and normoactive bowel sounds; Absent tenderness *Routine Rectal Exam Rectal:: deferred *Routine Genitalia Exam Genitalia:: deferred *Routine Extremities Exam Extremities: Absent cyanosis, clubbing or edema *Routine Skin Exam Skin: Present warm; Absent rash *Routine Neurological Exam Neurological: Present altered mental status; Absent alert Comments: AxO x 2 Routine Psychiatric Exam Psychiatric: Present unable to assess H&P: Result Imaging and Cardiology EKG: Status: image reviewed by me, Preliminary report and final report CT scan - chest: Status: image reviewed by me, Preliminary report and final report CT scan - head: Status: image reviewed by me, Preliminary report and final report Assessment and Plan *Assessment and plan (1) Sepsis with metabolic encephalopathy: Status: Acute Category: Medical Code(s): A41.9 - Sepsis, unspecified organism; R65.20 - Severe sepsis without septic shock; G93.41 - Metabolic encephalopathy (2) Acute renal failure: Status: Acute Qualifiers: Acute renal failure type: unspecified Qualified Code(s): N17.9 - Acute kidney failure, unspecified Category: Medical Code(s): N17.9 - Acute kidney failure, unspecified (3) Multi-organ system dysfunction: Status: Acute Category: Medical (4) Aspiration pneumonia: Status: Acute Qualifiers: Aspiration pneumonia type: unspecified Laterality: right Lung location: lower lobe of lung Qualified Code(s): J69.0 - Pneumonitis due to inhalation of food and vomit Category: Medical Code(s): J69.0 - Pneumonitis due to inhalation of food and vomit (5) Atrial fibrillation with rapid ventricular response: Status: Acute Category: Medical Code(s): I48.91 - Unspecified atrial fibrillation (6) Hypertension: Status: Acute Qualifiers: Hypertension type: essential hypertension Qualified Code(s): I10 - Essential (primary) hypertension Category: Medical Code(s): I10 - Essential (primary) hypertension (7) Hyperlipidemia: Status: Chronic Qualifiers: Hyperlipidemia type: unspecified Qualified Code(s): E78.5 - Hyperlipidemia, unspecified Category: Medical Code(s): E78.5 - Hyperlipidemia, unspecified (8) COPD (chronic obstructive pulmonary disease): Status: Acute Qualifiers: COPD type: unspecified COPD Qualified Code(s): J44.9 - Chronic obstructive pulmonary disease, unspecified Category: Medical Code(s): J44.9 - Chronic obstructive pulmonary disease, unspecified (9) Dementia: Status: Acute Qualifiers: Dementia behavioral or psychological symptom: unspecified whether behavioral, psychotic, or mood disturbance or anxiety Dementia severity: unspecified severity Dementia type: unspecified type Qualified Code(s): F03.90 - Unspecified dementia, unspecified severity, without behavioral disturbance, psychotic disturbance, mood disturbance, and anxiety Category: Medical Code(s): F03.90 - Unspecified dementia, unspecified severity, without behavioral disturbance, psychotic disturbance, mood disturbance, and anxiety Plan 87yo frail gentleman long term resident with PMHx of extensive comorbidities, included but not limited to being 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 Patient presented on this admission for evaluation of altered mental status. Arrived hypotensive with tachycardia, respiratory rate of 13 temp 98.5 satting at 96% on 3 L by nasal c annula and does have coarse breath sounds. underwent sepsis protocols, including crystalloid boluses. Initial investigation included uremia with a BUN of 123 acute renal failure creatinine of 6.4 and a GFR of 8 hypernatremia normal white count with no shift venous blood gas with a pH of 7.41 and a lactate of 2.4. patient presented with high mortality risk, with multiorgan failure, acute metabolic encepahloapthy and toxic uremia due to acute renal failure. Goals of care were previously discussed with family who declined any further aggressive treatment, including life sustained measures. Discussion was made with ED for admission. Spouse agreed for antibiotic administration only. Was started on Vancomycin and zoxyn. Patient was admitted for further inpatient management. Plan as follow: -Sepsis with acute metabolic encephalopathy: Acute renal failure with uremia, multiorgan system failure Pneumonia on the right lower lobe. Suspected aspiration Atrial fibrillation with RVR: Admit patient for inpatient management. Focus is on comfort care. Continue IV broad-spectrum antibiotic. Vancomycin and Zosyn renal dose. Pharmacy to monitor Cultures are pending Repeat labs to monitor creatinine. Per family no further aggressive medical interventions. Including no pressures or other life sustaining measures. occupational therapy manager and hospice consult Supportive care Other chronic conditions: Hypertension hyperlipidemia and COPD dimension Conditions reviewed. Hold hypertensive medications in the setting of sepsis with hypotension Provide oxygen supplement for support DNR/DNI Goals of care discussed with at length. Family understands the critical of his health condition. We are going to focus on provide comfort care only and symptom management. occupational therapy manager consulted to assist with transitions of hospice as a plan of care. Rounded on patient after nurse practitioner. Personally examined and interviewed patient. Agree with exam findings and care plan as documented.
--- NOTE | 2023-11-02 20:07 | PC.NURSE ---
pt arrived to floor at this time
[2023-11-02] MEDS: VANCOMYCIN/WATER FOR INJ (PEG) 1.25 GM/250 ML PIGGYBACK IV (21:24)
[2023-11-02] MEDS: VANCOMYCIN CONSULT REQUEST 1 EACH NOTAPPLIC (21:25)
--- NOTE | 2023-11-02 21:27 | PC.NURSE ---
Late Entry: consulted pharmacy about vancomycin consult (contacted between times 20:00 and 20:30).
--- NOTE | 2023-11-02 21:39 | PC.NURSE ---
Patient daughter, Mu Yanez, left personal phone number to be contacted if needed, .
[2023-11-02 21:52] LABS: Reflex Lactic Add Lactic Reflex
--- NOTE | 2023-11-02 22:11 | PC.NURSE ---
Patient admission completed according to [facility] medical record. Family was not present at the time. I attempted to speak with the patient upon doing his admission, but he was not speaking, became slightly agitated behavioral-daugherty, and pushed me away. Patient is sleeping at this time.
[2023-11-02 22:20] LABS: Chloride 113 mmol/L (98-107); Potassium 4.7 mmoL/L (3.5-5.1); Sodium 147 mmol/L (136-145)
[2023-11-02 22:23] LABS: Anion Gap 18.7 mEq/L (5-15); Carbon Dioxide 20 mmol/L (22.0-30.0); Creatinine Clearance Estimated 6 mL/min (50-200); Estimated Glomerular Filt Rate 9 ml/min (>60); GFR (African American) 10 ML/MIN (>60); Lactic Acid Follow Up (RFLX 1) 1.3 mmol/L (0.7-2.1)
[2023-11-02 22:24] LABS: Calcium 9.4 mg/dl (8.4-10.2); Glucose 119 mg/dl (74-100)
[2023-11-02 22:26] LABS: Blood Urea Nitrogen 117 mg/dl (9-20)
--- NOTE | 2023-11-02 22:27 | PC.NURSE ---
Nabila from lab called about critical lab values for the patient; his BUN was 117 and his creatinine was 6.2. Gautam Renteria APRN was notified at this time.
[2023-11-03] VITALS: BP 124/71; PULSE 80; RESP 17; TEMP 36.6; O2SAT 95
[2023-11-03] MEDS: PIPERACILLIN/TAZO 2.25 GM in 0.9 % SODIUM CHLORIDE 50 ML IV ×3 (00:22→11:39)
[2023-11-03 04:00] VITALS: BP 122/71; PULSE 121; RESP 18; TEMP 36.4; O2SAT 96; BMI 16.9
--- NOTE | 2023-11-03 04:42 | EXP.SEPSISRE ---
[facility] Tissue Perfusion Eval Sepsis Re-Evaluation Performed: Yes Date Performed: 11/03/23 Time Performed: 12:01
--- NOTE | 2023-11-03 05:32 | PC.NURSE ---
Patient was admitted this shift (11/01) from the ER due to weakness, kidney failure, and afib with RVR; patient is a jail resident from [place]. He is nonverbal at this time with baseline confusion; upon assessment, he was not alert nor oriented. However, the patient can answer some yes/no questions at times with nods/shakes of his head. Patient tends to get agitated whenever he is turned. At times, the patient has appeared to get restless and respirations increase upon any arousal. Patient is on 1.5 L NC and tolerates it well; upon auscultation during admission, he had very diminished lung sounds. Patient has a history of failure to thrive and pneumonia due to aspiration risk per [place] report. He has received Zosyn and Vancomycin IV this shift per JUL. Patient exhibited critical lab values at 22:06 yesterday (11/01), consisting of a 117 BUN and a 6.2 creatinine. MD was notified and aware. Patient is on comfort care measures. Nothing has been heard from the patient during the night; he has been resting well. No acute changes noted.
[2023-11-03 07:45] VITALS: BP 104/51; PULSE 105; RESP 22; TEMP 37.2; O2SAT 97
--- NOTE | 2023-11-03 07:54 | [facility].PHAINT1 ---
Pharmacy Intervention Comments: home medication list verified using MAR from [facility]
--- NOTE | 2023-11-03 07:56 | SW/DCPLANNER ---
Addendum entered by [facility] 11/06/23 10:44: I have updated Afsaneh w/ Hospice that the plan is to continue inpatient Hospice per MD. Addendum entered by [facility] 11/04/23 11:17: Afsaneh w/ Hospice is onsite to evaluate patient and speak w/ family. Addendum entered by [facility] 11/03/23 14:46: Per Afsaneh w/ Hospice patient has been admitted under Hospice inpatient as of 1PM on 11/03/2023. Addendum entered by [facility] 11/03/23 11:49: Afsaneh w/ Hospice will be onsite to speak w/ patient and family today. Addendum entered by [facility] 11/03/23 08:30: Patient's is agreeable to Hospice services at this time. Original Note: This patient is currently I[facility] at [facility]. MD and patient/family have discussed Hospice Care. I have faxed patient information to [facility] this AM. I will follow up w/ Hospice once information is reviewed.
[2023-11-03 08:37] LABS: Basophils % 0.3 % (0.1-2.0); Eosinophils # 0.1 K/mm3 (0.0-0.4); Eosinophils % 1.1 % (0.1-12.0); Hematocrit 31.6 % (42.0-52.0); Hemoglobin 11.8 g/dL (14.1-18.0); Lymphocytes # 1.2 K/mm3 (0.7-4.5); Lymphocytes % 17.4 % (10-50); Mean Corpuscular HGB Conc 37.2 g/dL (31.8-35.4); Mean Corpuscular Hemoglobin 36.1 pg (27.0-31.2); Mean Corpuscular Volume 97.1 fl (80-94); Mean Platelet Volume 8.2 fl (7.4-10.4); Monocytes # 0.3 K/mm3 (0.1-1.0); Neutrophils # 5.2 K/mm3 (1.8-7.8); Neutrophils % 76.2 % (37.0-80.0); Platelet Count 119 K/mm3 (142-424); Red Blood Count 3.26 M/mm3 (4.60-6.20); Red Cell Distribution Width 16.1 % (11.5-17.5); White Blood Count 6.8 K/mm3 (4.8-10.8)
[2023-11-03 08:45] LABS: Chloride 119 mmol/L (98-107)
[2023-11-03 08:46] LABS: Potassium 4.6 mmoL/L (3.5-5.1)
[2023-11-03 08:48] LABS: Alanine Aminotransferase 19 U/L (12-78); Aspartate Amino Transferase 27 U/L (17-59); Creatinine Clearance Estimated 6 mL/min (50-200); Estimated Glomerular Filt Rate 8 ml/min (>60); GFR (African American) 10 ML/MIN (>60)
[2023-11-03 08:49] LABS: Albumin Level 3.3 g/dl (3.5-5.0); Albumin/Globulin Ratio 0.9 (1.1-1.8); Alkaline Phosphatase 67 U/L (38-126); Anion Gap 16.6 mEq/L (5-15); Bilirubin,Total 0.3 mg/dl (0.2-1.3); Calcium 9.6 mg/dl (8.4-10.2); Carbon Dioxide 20 mmol/L (22.0-30.0); Globulin 3.8 g/dL (1.3-3.2); Glucose 105 mg/dl (74-100); Magnesium 2.4 mg/dl (1.6-2.3); Total Protein,Serum 7.1 g/dl (6.3-8.2)
[2023-11-03 09:20] LABS: Blood Urea Nitrogen 120 mg/dl (9-20); Sodium 151 mmol/L (136-145)
[2023-11-03] MEDS: Dex 5% in 0.45% NaCl 1,000 ML 100 ML IV (10:30)
--- NOTE | 2023-11-03 11:22 | EXP.ACUTE.PN ---
Subjective *Date: 11/03/23 *Time: 16:46 Interval history: Patient showed minimal improvement overnight. Will make eye contact and nod to questions, not consistently appropriate answers. No significant verbal response to staff. Whispered to family with simple one-word answers. Patient afebrile and hemodynamically stable. Necessitating 1 to 2 L oxygen overnight. No improvement in labs. Medical Exam Vital signs and Labs for Last 24 Hours: Vital Signs Temp Pulse Pulse Resp BP BP Pulse Ox 11/03/23 10:41 11/03/23 08:27 11/03/23 08:00 11/03/23 07:45 99.0 F 105 H 22 104/51 L 97 11/03/23 06:40 11/03/23 05:00 11/03/23 04:00 97.5 F L 121 H 18 122/71 96 11/03/23 02:58 11/03/23 01:00 11/03/23 00:00 97.8 F 80 17 124/71 95 11/02/23 23:00 11/02/23 21:00 11/02/23 20:26 98.2 F 78 16 150/70 H 11/02/23 20:24 97.7 F 100 H 17 91/50 L 99 11/02/23 20:00 78 99 11/02/23 18:30 117 H 19 80/48 L 98 11/02/23 18:28 100 H 19 92/54 L 99 11/02/23 18:26 85 19 79/41 L 97 11/02/23 18:23 24 96/64 L 97 11/02/23 17:45 112 H 16 99 11/02/23 17:30 100 H 111/63 95 11/02/23 17:08 98.5 F 111 H 13 111/63 96 O2 Del Method O2 Flow Rate 11/03/23 10:41 Nasal Cannula 1.5 11/03/23 08:27 Nasal Cannula 1.5 11/03/23 08:00 Nasal Cannula 1.5 11/03/23 07:45 Nasal Cannula 1.5 11/03/23 06:40 Nasal Cannula 1.5 11/03/23 05:00 Nasal Cannula 1.5 11/03/23 04:00 Nasal Cannula 11/03/23 02:58 Nasal Cannula 1.5 11/03/23 01:00 Nasal Cannula 1.5 11/03/23 00:00 Nasal Cannula 11/02/23 23:00 Nasal Cannula 1.5 11/02/23 21:00 Nasal Cannula 1.5 11/02/23 20:26 Room Air 11/02/23 20:24 Nasal Cannula 2 11/02/23 20:00 Nasal Cannula 1.5 11/02/23 18:30 11/02/23 18:28 Room Air 11/02/23 18:26 Room Air 11/02/23 18:23 Room Air 11/02/23 17:45 11/02/23 17:30 11/02/23 17:08 Nasal Cannula 3 Intake and Output 11/02/23 11/03/23 11/03/23 23:59 07:59 15:59 Intake Total 0 / 0 0 / 0 Output Total 0 / 0 0 / 0 0 / 0 Balance 0 / 0 0 / 0 0 / 0 Intake: Intake, Oral Amount 0 / 0 0 / 0 Output: Output, Urine Amount 0 / 0 0 / 0 0 / 0 Other: Number of Unmeasured Voids 1 1 1 Weight 51.8 kg 51.8 kg Patient Weight 11/03/23 23:59 Weight 51.8 kg Laboratory Results - last 24 hr 11/02/23 17:36: VBG pH 7.41, VBG pCO2 30.0 L, VBG pO2 85.5 H, VBG HCO3 18.6 L, VBG Total CO2 19.5 L, VBG O2 Saturation 96.3 H, VBG Base Excess -6.0 L, VBG Lactic Acid 2.4 H 11/02/23 17:40: WBC 9.5, RBC 3.79 L, Hgb 11.9 L, Hct 36.9 L, MCV 97.2 H, MCH 31.2, MCHC 32.1, RDW 15.9, Plt Count 149, MPV 8.8, Neut % (Auto) 76.5, Lymph % (Auto) 15.8, [place] % (Auto) 6.2, Eos % (Auto) 0.9, Baso % (Auto) 0.4, Neut # (Auto) 7.3, Lymph # (Auto) 1.5, [place] # (Auto) 0.6, Eos # (Auto) 0.1, Baso # (Auto) 0.0, Sodium 148 H, Potassium 4.8, Chloride 113 H, Carbon Dioxide 20 L, Anion Gap 19.8 H, BUN 123 H*, Creatinine 6.40 H, Estimated Creat Clear 8, Estimated GFR 8 L*, Est GFR ( Amer) 10 L*, Glucose 113 H, Calcium 9.8, Total Bilirubin 0.4, AST 32, ALT 24, Alkaline Phosphatase 72, Total Protein 7.5, Albumin 3.5, Globulin 4.0 H, Albumin/Globulin Ratio 0.9 L, Procalcitonin 0.368 11/02/23 17:44: Chlamy pneumoniae PCR Not detected, Adenovirus (PCR) Not detected, B. pertussis DNA (PCR) Not detected, Coronavirus OC43 (PCR) Not detected, Coronavirus HKU1 (PCR) Not detected, Coronavirus 229E (PCR) Not detected, SARS-CoV-2 (PCR) Not detected, Coronavirus NL63 (PCR) Not detected, Human Metapneumovir PCR Not detected, Influenza A (H1) PCR Not detected, Influ A (H1N1/09) PCR Not detected, Influenza A (H3) PCR Not detected, Influenza Type A (PCR) Not detected, Influenza Type B (PCR) Not detected, M. pneumoniae (PCR) Not detected, Parainfluenza 1 (PCR) Not detected, Parainfluenza 2 (PCR) Not detected, Parainfluenza 3 (PCR) Not detected, Parainfluenza 4 (PCR) Not detected, RSV (PCR) Not detected, Entero/Rhino (PCR) Not detected 11/02/23 17:50: Urine Color Yellow, Urine Appearance Sl cloudy, Urine pH 5.5, Ur Specific [place] 1.025, Urine Protein Trace, Urine Glucose (UA) Negative, Urine Ketones Negative, Urine Blood 2+, Urine Nitrate Negative, Urine Bilirubin Negative, Urine Urobilinogen 0.2, Ur Leukocyte Esterase 2+ A, Urine RBC 10-20, Urine WBC 10-20, Ur Squamous Epith Cells Occasional, Urine Bacteria Trace 11/02/23 22:06: Sodium 147 H, Potassium 4.7, Chloride 113 H, Carbon Dioxide 20 L, Anion Gap 18.7 H, BUN 117 H*, Creatinine 6.20 H, Estimated Creat Clear 6, Estimated GFR 9 L*, Est GFR ( Amer) 10 L*, Glucose 119 H, Lactate 1.3, Calcium 9.4 11/03/23 08:25: WBC 6.8 D, RBC 3.26 L, Hgb 11.8 L, Hct 31.6 L, MCV 97.1 H, MCH 36.1 H, MCHC 37.2 H, RDW 16.1, Plt Count 119 L, MPV 8.2, Neut % (Auto) 76.2, Lymph % (Auto) 17.4, [place] % (Auto) 5.0, Eos % (Auto) 1.1, Baso % (Auto) 0.3, Neut # (Auto) 5.2, Lymph # (Auto) 1.2, [place] # (Auto) 0.3, Eos # (Auto) 0.1, Baso # (Auto) 0.0, Sodium 151 H*, Potassium 4.6, Chloride 119 H, Carbon Dioxide 20 L, Anion Gap 16.6 H, BUN 120 H*, Creatinine 6.50 H, Estimated Creat Clear 6, Estimated GFR 8 L*, Est GFR ( Amer) 10 L*, Glucose 105 H, Calcium 9.6, Magnesium 2.4 H, Total Bilirubin 0.3, AST 27, ALT 19, Alkaline Phosphatase 67, Total Protein 7.1, Albumin 3.3 L, Globulin 3.8 H, Albumin/Globulin Ratio 0.9 L I & O for Labs for Last 24 Hours: Intake & Output 10/31/23 11/01/23 11/02/23 11/03/23 23:59 23:59 23:59 23:59 Intake Total 0 / 0 Output Total 0 / 0 0 / 0 Balance 0 / 0 0 / 0 Weight 51.8 kg 51.8 kg Constitutional: Present moderate distress, cachectic, chronically ill appearing and disheveled Head: Present atraumatic and normocephalic ENT: Present mucous membranes dry Respiratory: Present prolonged expiratory phase, rhonchi, crackles and normal respiratory effort; Absent wheezes Cardiac: Present Regular Rhythm and Tachycardia GI: Present soft and normal bowel sounds; Absent distention or tenderness Extremities: Absent edema Skin: Present intact; Absent erythema Neuro: Present alert; Absent awake or oriented x 3 Assessment and Plan *Assessment and plan (1) Sepsis with metabolic encephalopathy: Status: Acute Category: Medical Code(s): A41.9 - Sepsis, unspecified organism; R65.20 - Severe sepsis without septic shock; G93.41 - Metabolic encephalopathy (2) Acute renal failure: Status: Acute Qualifiers: Acute renal failure type: unspecified Qualified Code(s): N17.9 - Acute kidney failure, unspecified Category: Medical Code(s): N17.9 - Acute kidney failure, unspecified (3) Multi-organ system dysfunction: Status: Acute Category: Medical (4) Aspiration pneumonia: Status: Acute Qualifiers: Aspiration pneumonia type: unspecified Laterality: right Lung location: lower lobe of lung Qualified Code(s): J69.0 - Pneumonitis due to inhalation of food and vomit Category: Medical Code(s): J69.0 - Pneumonitis due to inhalation of food and vomit (5) Atrial fibrillation with rapid ventricular response: Status: Acute Category: Medical Code(s): I48.91 - Unspecified atrial fibrillation (6) Hypertension: Status: Acute Qualifiers: Hypertension type: essential hypertension Qualified Code(s): I10 - Essential (primary) hypertension Category: Medical Code(s): I10 - Essential (primary) hypertension (7) Hyperlipidemia: Status: Chronic Qualifiers: Hyperlipidemia type: unspecified Qualified Code(s): E78.5 - Hyperlipidemia, unspecified Category: Medical Code(s): E78.5 - Hyperlipidemia, unspecified (8) COPD (chronic obstructive pulmonary disease): Status: Acute Qualifiers: COPD type: unspecified COPD Qualified Code(s): J44.9 - Chronic obstructive pulmonary disease, unspecified Category: Medical Code(s): J44.9 - Chronic obstructive pulmonary disease, unspecified (9) Dementia: Status: Acute Qualifiers: Dementia behavioral or psychological symptom: unspecified whether behavioral, psychotic, or mood disturbance or anxiety Dementia severity: unspecified severity Dementia type: unspecified type Qualified Code(s): F03.90 - Unspecified dementia, unspecified severity, without behavioral disturbance, psychotic disturbance, mood disturbance, and anxiety Category: Medical Code(s): F03.90 - Unspecified dementia, unspecified severity, without behavioral disturbance, psychotic disturbance, mood disturbance, and anxiety Plan 87yo frail gentleman [facility] resident with PMHx of extensive comorbidities, included but not limited to being 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 Patient presented on this admission for evaluation of altered mental status. Arrived hypotensive with tachycardia, respiratory rate of 13 temp 98.5 satting at 96% on 3 L by nasal cannula and does have coarse breath sounds. underwent sepsis protocols, including crystalloid boluses. Initial investigation included uremia with a BUN of 123 acute renal failure creatinine of 6.4 and a GFR of 8 hypernatremia normal white count with no shift venous blood gas with a pH of 7.41 and a lactate of 2.4. patient presented with high mortality risk, with multiorgan failure, acute metabolic encepahloapthy and toxic uremia due to acute renal failure. Goals of care were previously discussed with family who declined any further aggressive treatment, including life sustained measures. Discussion was made with ED for admission. Spouse agreed for antibiotic administration only. Was started on Vancomycin and zoxyn. Patient was admitted for further inpatient management. Plan as follow: -Sepsis with acute metabolic encephalopathy: Acute renal failure with uremia, multiorgan system failure Pneumonia on the right lower lobe. Suspected aspiration Atrial fibrillation with RVR: Sodium worse at 151, chloride 119, kidney function worse with creatinine 6.5, BUN 120. No significant urine output by morning rounds. Goals of care discussion with family. Discussed more aggressive therapy with placement of Gil catheter to monitor urine output in the setting of renal failure, transitioning IV fluids to D5 half-normal due to hypernatremia, and continuing antibiotics versus transitioning to hospice care given renal failure and oliguria with no improvement since admission. Family elected to pursue hospice consult. Patient will transition to hospice care today. Discontinuing antibiotics and fluids. Initiate morphine 2 mg IV every 4 hours as needed for pain. Initiate Ativan 0.5 mg every 4 hours as needed for agitation. Glycopyrrolate 0.2 mg every 6 hours as needed for secretions. DNR/DNI Goals of care discussed with at length. Family understands the critical of his health condition. We are going to focus on provide comfort care only and symptom management. propagation manager consulted to assist with transitions of hospice as a plan of care.
--- NOTE | 2023-11-03 15:04 | PC.NURSE ---
Pt. can answer some yes and no questions by shaking his head, non verbal at this time, baseline same at shelter, 02-1.5 NC which he removes at times, now hospice and comfort care on the floor, turn every two hours.
[2023-11-03] MEDS: LORazepam 2MG/ML VIAL 0.5 MG IV ×2 (15:14→20:55)
[2023-11-03 19:45] VITALS: BP 89/63; PULSE 103; RESP 16; TEMP 36.6; O2SAT 96
[2023-11-03 20:00] VITALS: O2SAT 96
[2023-11-04] MEDS: MORPHINE 2MG/ML SYRINGE 2 MG IV ×4 (00:17→22:19)
--- NOTE | 2023-11-04 00:25 | PC.NURSE ---
Pt medicated with morphine per MAR due to RR of 40, pt tense and restless.
[2023-11-04 04:00] VITALS: BMI 16.9
--- NOTE | 2023-11-04 05:07 | PC.NURSE ---
Addendum entered by Wanda Martínez RN 11/04/23 05:09: Occasional short periods of apnea noted , no mottling. Original Note: No real changes in pt status through the night. Pts only response has been fluttering his eyes when touched He has been medicated with Morphine X1 and Ativan X 1 through the night and is currently resting comfortably.
--- NOTE | 2023-11-04 06:11 | PC.NURSE ---
Pt medicated with Morphine due to RR of 40, labored, tense and fidgiting
[2023-11-04 08:11] VITALS: BP 95/50; PULSE 125; RESP 21; TEMP 36.9; O2SAT 96
--- NOTE | 2023-11-04 08:12 | PC.NURSE ---
notified nurse about low b/p and high pulse
[2023-11-04] MEDS: LORazepam 2MG/ML VIAL 0.5 MG IV ×2 (09:01→13:34)
--- NOTE | 2023-11-04 09:54 | P.PN_ITS ---
Subjective *Date: 11/04/23 *Time: 09:54 Interval history: Patient no acute distress. Sleeping this morning on exam. Family at bedside. No significant response overnight. No significant p.o. intake. Does not appear in pain or agitated. On room air. Blood pressure soft this morning Medical Exam Vital signs and Labs for Last 24 Hours: Vital Signs Temp Pulse Resp BP Pulse Ox O2 Del Method O2 Flow Rate 11/04/23 08:11 98.4 F 125 H 21 95/50 L 96 Room Air 11/04/23 07:34 Nasal Cannula 2 11/04/23 07:23 Nasal Cannula 2 11/04/23 06:38 Room Air 11/04/23 05:00 Nasal Cannula 2 11/04/23 03:00 Nasal Cannula 2 11/04/23 01:00 Room Air 11/03/23 23:00 Room Air 11/03/23 21:00 Room Air 11/03/23 20:00 96 Room Air 11/03/23 19:45 97.9 F 103 H 16 89/63 L 96 Nasal Cannula 2 11/03/23 17:53 1.5 11/03/23 16:51 Nasal Cannula 1.5 11/03/23 14:55 Nasal Cannula 1.5 11/03/23 13:00 Room Air 11/03/23 10:41 Nasal Cannula 1.5 Intake and Output 11/03/23 11/04/23 11/04/23 23:59 07:59 15:59 Intake Total 0 / 50 0 / 0 Output Total 0 / 0 0 / 0 0 / 0 Balance 0 / 50 0 / 0 0 / 0 Intake: Intake, Oral Amount 0 / 0 0 / 0 Output: Output, Urine Amount 0 / 0 0 / 0 0 / 0 Other: Number of Unmeasured Voids 0 1 1 Weight 51.8 kg Patient Weight 11/04/23 23:59 Weight 51.8 kg I & O for Labs for Last 24 Hours: Intake & Output 11/01/23 11/02/23 11/03/23 11/04/23 23:59 23:59 23:59 23:59 Intake Total 50 / 50 0 / 0 Output Total 0 / 0 0 / 0 0 / 0 Balance 0 / 0 50 / 50 0 / 0 Weight 51.8 kg 51.8 kg 51.8 kg Microbiology Reports for the Last 24 Hours: Microbiology 11/02/23 18:52 Blood Blood Culture - Preliminary NO GROWTH AFTER 24 HOURS 11/02/23 18:52 Blood Blood Culture - Preliminary NO GROWTH AFTER 24 HOURS Constitutional: Present no acute distress, chronically ill appearing and somnolent Head: Present atraumatic Respiratory: Present rhonchi (Right lower lung) and crackles (Right lung field); Absent respiratory distress or wheezes Cardiac: Present Reg Rate and Rhythm Neuro: Absent alert, awake or oriented x 3 Assessment and Plan *Assessment and plan (1) Sepsis with metabolic encephalopathy: Status: Acute Category: Medical Code(s): A41.9 - Sepsis, unspecified organism; R65.20 - Severe sepsis without septic shock; G93.41 - Metabolic encephalopathy (2) Acute renal failure: Status: Acute Qualifiers: Acute renal failure type: unspecified Qualified Code(s): N17.9 - Acute kidney failure, unspecified Category: Medical Code(s): N17.9 - Acute kidney failure, unspecified (3) Multi-organ system dysfunction: Status: Acute Category: Medical (4) Aspiration pneumonia: Status: Acute Qualifiers: Aspiration pneumonia type: unspecified Laterality: right Lung location: lower lobe of lung Qualified Code(s): J69.0 - Pneumonitis due to inhalation of food and vomit Category: Medical Code(s): J69.0 - Pneumonitis due to inhalation of food and vomit (5) Atrial fibrillation with rapid ventricular response: Status: Acute Category: Medical Code(s): I48.91 - Unspecified atrial fibrillation (6) Hypertension: Status: Acute Qualifiers: Hypertension type: essential hypertension Qualified Code(s): I10 - Essential (primary) hypertension Category: Medical Code(s): I10 - Essential (primary) hypertension (7) Hyperlipidemia: Status: Chronic Qualifiers: Hyperlipidemia type: unspecified Qualified Code(s): E78.5 - Hy perlipidemia, unspecified Category: Medical Code(s): E78.5 - Hyperlipidemia, unspecified (8) COPD (chronic obstructive pulmonary disease): Status: Acute Qualifiers: COPD type: unspecified COPD Qualified Code(s): J44.9 - Chronic obstructive pulmonary disease, unspecified Category: Medical Code(s): J44.9 - Chronic obstructive pulmonary disease, unspecified (9) Dementia: Status: Acute Qualifiers: Dementia type: unspecified type Dementia severity: unspecified severity Dementia behavioral or psychological symptom: unspecified whether behavioral, psychotic, or mood disturbance or anxiety Qualified Code(s): F03.90 - Unspecified dementia, unspecified severity, without behavioral disturbance, psychotic disturbance, mood disturbance, and anxiety Category: Medical Code(s): F03.90 - Unspecified dementia, unspecified severity, without behavioral disturbance, psychotic disturbance, mood disturbance, and anxiety Plan 87yo frail gentleman prison resident with PMHx of extensive comorbidities, included but not limited to being 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 Patient presented on this admission for evaluation of altered mental status. Arrived hypotensive with tachycardia, respiratory rate of 13 temp 98.5 satting at 96% on 3 L by nasal cannula and does have coarse breath sounds. underwent sepsis protocols, including crystalloid boluses. Initial investigation included uremia with a BUN of 123 acute renal failure creatinine of 6.4 and a GFR of 8 hypernatremia normal white count with no shift venous blood gas with a pH of 7.41 and a lactate of 2.4. patient presented with high mortality risk, with multiorgan failure, acute metabolic encepahloapthy and toxic uremia due to acute renal failure. Decision to transfer to hospice care yesterday. Patient currently being treated for comfort. No p.o. intake over the past 24 hours. Blood pressure softer, systolics of 80s this morning. Prognosis terminal. Continue supportive care. Hospice assisting with management. Problems addressed as follows: -Sepsis with acute metabolic encephalopathy: Acute renal failure with uremia, multiorgan system failure Pneumonia on the right lower lobe. Suspected aspiration Atrial fibrillation with RVR: Continue morphine 2 mg IV every 4 hours as needed for pain. 3 doses of Ativan in the past 24 hours, 2 doses of morphine. Continue Ativan 0.5 mg every 4 hours as needed for agitation. Glycopyrrolate 0.2 mg every 6 hours as needed for secretions. DNR/DNI Hospice/comfort care.
[2023-11-04 12:40] VITALS: BMI 16.9
[2023-11-04 20:00] VITALS: BP 82/34; PULSE 110; RESP 16; TEMP 38.1; O2SAT 93
[2023-11-05 04:00] VITALS: BMI 16.7
--- NOTE | 2023-11-05 05:44 | PC.NURSE ---
pt is unresponsive to verbal or painful stimuli, noted tachypnea, morphine given x1
[2023-11-05] MEDS: SODIUM CHLORIDE 0.9% 10ML FLUSH SYRINGE 10 ML IV (05:50)
[2023-11-05] MEDS: MORPHINE 2MG/ML SYRINGE 2 MG IV ×2 (05:50→14:24)
[2023-11-05 08:00] VITALS: BP 113/53; PULSE 118; RESP 24; TEMP 37.3; O2SAT 98
--- NOTE | 2023-11-05 10:30 | EXP.ACUTE.PN ---
Subjective *Date: 11/05/23 *Time: 10:30 Interval history: Patient obtunded this morning. No significant response to exam. Mild fever at 100.5. Heart rate increased into the 120s. Blood pressure soft systolics in the 90s. Family at bedside Medical Exam Vital signs and Labs for Last 24 Hours: Vital Signs Temp Pulse Resp BP Pulse Ox O2 Del Method O2 Flow Rate 11/05/23 08:00 Room Air 11/05/23 08:00 99.1 F 118 H 24 113/53 L 98 Room Air 11/05/23 06:49 Room Air 11/05/23 05:00 Room Air 11/05/23 03:00 Room Air 11/05/23 01:00 Room Air 11/04/23 23:00 Room Air 11/04/23 21:00 Room Air 11/04/23 20:00 Room Air 11/04/23 20:00 100.5 F H 110 H 16 82/34 L 93 L Room Air 11/04/23 18:06 Room Air 11/04/23 16:30 Nasal Cannula 2 11/04/23 14:05 Room Air 11/04/23 12:05 Nasal Cannula 2 Intake and Output 11/04/23 11/05/23 11/05/23 23:59 07:59 15:59 Output Total 0 / 0 Balance 0 / 0 Output: Output, Urine Amount 0 / 0 Other: Number of Unmeasured Voids 2 Weight 51.211 kg Patient Weight 11/05/23 23:59 Weight 51.211 kg I & O for Labs for Last 24 Hours: Intake & Output 11/02/23 11/03/23 11/04/23 11/05/23 23:59 23:59 23:59 23:59 Intake Total 50 / 50 0 / 0 Output Total 0 / 0 0 / 0 0 / 0 0 / 0 Balance 0 / 0 50 / 50 0 / 0 0 / 0 Weight 51.8 kg 51.8 kg 51.8 kg 51.211 kg Microbiology Reports for the Last 24 Hours: Microbiology 11/02/23 17:50 Urine,Catheterized Urine Culture - Final NO GROWTH AFTER 48 HOURS 11/02/23 18:52 Blood Blood Culture - Preliminary NO GROWTH AFTER 48 HOURS 11/02/23 18:52 Blood Blood Culture - Preliminary NO GROWTH AFTER 48 HOURS Constitutional: Present cachectic, chronically ill appearing and obtunded Respiratory: Present rhonchi and crackles (Right lung field) Cardiac: Present Regular Rhythm and Tachycardia Neuro: Absent alert, awake or oriented x 3 Assessment and Plan *Assessment and plan (1) Sepsis with metabolic encephalopathy: Status: Acute Category: Medical Code(s): A41.9 - Sepsis, unspecified organism; R65.20 - Severe sepsis without septic shock; G93.41 - Metabolic encephalopathy (2) Acute renal failure: Status: Acute Qualifiers: Acute renal failure type: unspecified Qualified Code(s): N17.9 - Acute kidney failure, unspecified Category: Medical Code(s): N17.9 - Acute kidney failure, unspecified (3) Multi-organ system dysfunction: Status: Acute Category: Medical (4) Aspiration pneumonia: Status: Acute Qualifiers: Aspiration pneumonia type: unspecified Laterality: right Lung location: lower lobe of lung Qualified Code(s): J69.0 - Pneumonitis due to inhalation of food and vomit Category: Medical Code(s): J69.0 - Pneumonitis due to inhalation of food and vomit (5) Atrial fibrillation with rapid ventricular response: Status: Acute Category: Medical Code(s): I48.91 - Unspecified atrial fibrillation (6) Hypertension: Status: Acute Qualifiers: Hypertension type: essential hypertension Qualified Code(s): I10 - Essential (primary) hypertension Category: Medical Code(s): I10 - Essential (primary) hypertension (7) Hyperlipidemia: Status: Chronic Qualifiers: Hyperlipidemia type: unspecified Qualified Code(s): E78.5 - Hyperlipidemia, unspecified Category: Medical Code(s): E78.5 - Hyperlipidemia, unspecified (8) COPD (chronic obstructive pulmonary disease): Status: Acute Qualifiers: COPD type: unspecified COPD Qualified Code(s): J44.9 - Chronic obstructive pulmonary disease, unspecified Category: Medical Code(s): J44.9 - Chronic obstructive pulmonary disease, unspecified (9) Dementia: Status: Acute Qualifiers: Dementia type: unspecified type Dementia severity: unspecified severity Dementia behavioral or psychological symptom: unspecified whether behavioral, psychotic, or mood disturbance or anxiety Qualified Code(s): F03.90 - Unspecified dementia, unspecified severity, without behavioral disturbance, psychotic disturbance, mood disturbance, and anxiety Category: Medical Code(s): F03.90 - Unspecified dementia, unspecified severity, without behavioral disturbance, psychotic disturbance, mood disturbance, and anxiety Plan 87yo frail gentleman intermediate resident with PMHx of extensive comorbidities, included but not limited to being 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 Patient presented on this admission for evaluation of altered mental status. Arrived hypotensive with tachycardia, respiratory rate of 13 temp 98.5 satting at 96% on 3 L by nasal cannula and does have coarse breath sounds. underwent sepsis protocols, including crystalloid boluses. Initial investigation included uremia with a BUN of 123 acute renal failure creatinine of 6.4 and a GFR of 8 hypernatremia normal white count with no shift venous blood gas with a pH of 7.41 and a lactate of 2.4. patient presented with high mortality risk, with multiorgan failure, acute metabolic encepahloapthy and toxic uremia due to acute renal failure. Continuing hospice care. Obtunded this morning. No p.o. intake in over 24 hours, showing instability and vitals with tachycardia and fever today. Still on room air. is imminent. Patient is actively dying. Problems addressed as follows: Sepsis with acute metabolic encephalopathy: Acute renal failure with uremia, multiorgan system failure Pneumonia on the right lower lobe. Suspected aspiration Atrial fibrillation with RVR: Continue morphine 2 mg IV every 4 hours as needed for pain. 4 doses of morphine in the past 24 hours Continue Ativan 0.5 mg every 4 hours as needed for agitation. 2 doses of Ativan in the past 24 hours Glycopyrrolate 0.2 mg every 6 hours as needed for secretions. DNR/DNI Hospice/comfort care.
[2023-11-05] MEDS: LORazepam 2MG/ML VIAL 0.5 MG IV (15:06)
--- NOTE | 2023-11-05 17:32 | PC.NURSE ---
q2 turn with oral care. non responsive to verbal or physical stimuli, medicated per mar for pain/agitation.
[2023-11-05 19:40] VITALS: BP 103/69; PULSE 94; RESP 23; TEMP 37.8; O2SAT 94
[2023-11-05 20:00] VITALS: RESP 23; O2SAT 91
--- NOTE | 2023-11-05 23:50 | PC.NURSE ---
PATIENT IS UNRESPONSIVE TO VERBAL OR PHYSICAL STIMULI. RIGHT PUPIL DEFORMED AND LEFT PUPIL 2 MM AND FIXED. MOTTLING NOTED BLEs FEET TO JUST BELOW THR KNEES. LOWER EXTREMITIES COOL TO TOUCH. HOB UP 30 DEGREES FOR COMFORT. TURNED AND REPOSITIONED Q 2 HRS. VERY SCANT UOP NOTED. FAMILY MEMBER CALLED TO CHECK ON PATIENT.
[2023-11-06 04:00] VITALS: BMI 16.5
[2023-11-06 08:00] VITALS: BP 90/48; PULSE 51; RESP 30; TEMP 37.6; O2SAT 95
[2023-11-06] MEDS: SODIUM CHLORIDE 0.9% 10ML VIAL 10 ML IV (11:55)
[2023-11-06] MEDS: LORazepam 2MG/ML VIAL 0.5 MG IV (11:55)
--- NOTE | 2023-11-06 18:17 | PC.NURSE ---
PT IS RESTING IN BED WITH FAMILY AT BEDSIDE. UNRESPONSIVE. MEDICATED PER MAR FOR COMFORT. LUNG SOUNDS DIMINISHED. ABDOMEN SOFT/NON TENDER WITH HYPOACTIVE BOWEL SOUNDS. MOTTLING WITH SCATTERED ABRASIONS NOTED TO BLE. REDNESS NOTED TO BILATERAL HIPS. TURNED AND REPOSITIONED IN BED. ORAL CARE PROVIDED. WILL CONTINUE TO MONITOR.
--- NOTE | 2023-11-06 18:39 | EXP.ACUTE.PN ---
Subjective *Date: 11/06/23 *Time: 18:39 Interval history: No acute events overnight. Up to today. Blood pressure becoming soft.Temperature of 100.1 overnight. No response to stimuli from family Medical Exam Vital signs and Labs for Last 24 Hours: Vital Signs Temp Pulse Resp BP Pulse Ox O2 Del Method 11/06/23 18:29 Room Air 11/06/23 16:44 Room Air 11/06/23 15:00 Room Air 11/06/23 12:37 Room Air 11/06/23 11:00 Room Air 11/06/23 08:00 99.6 F 51 L 30 H 90/48 L 95 Room Air 11/06/23 08:00 Room Air 11/06/23 06:34 Room Air 11/06/23 05:00 Room Air 11/06/23 02:58 Room Air 11/06/23 01:00 Room Air 11/05/23 23:00 Room Air 11/05/23 21:00 Room Air 11/05/23 20:00 23 91 L Room Air 11/05/23 19:40 100.1 F H 94 H 23 103/69 L 94 L Room Air Intake and Output 11/06/23 11/06/23 11/06/23 07:59 15:59 23:59 Intake Total 0 / 0 Output Total 0 / 0 0 / 0 Balance 0 / 0 0 / 0 Intake: Intake, Oral Amount 0 / 0 Output: Output, Urine Amount 0 / 0 0 / 0 Other: Number of Unmeasured Voids 1 1 Weight 50.485 kg Patient Weight 11/06/23 23:59 Weight 50.485 kg I & O for Labs for Last 24 Hours: Intake & Output 11/03/23 11/04/23 11/05/23 11/06/23 23:59 23:59 23:59 23:59 Intake Total 50 / 50 0 / 0 0 / 0 Output Total 0 / 0 0 / 0 0 / 0 0 / 0 Balance 50 / 50 0 / 0 0 / 0 0 / 0 Weight 51.8 kg 51.8 kg 51.211 kg 50.485 kg Constitutional: Present cachectic, chronically ill appearing and obtunded Respiratory: Present rhonchi and crackles (Right lung field) Cardiac: Present Regular Rhythm and Tachycardia Neuro: Absent alert, awake or oriented x 3 Assessment and Plan *Assessment and plan (1) Sepsis with metabolic encephalopathy: Status: Acute Category: Medical Code(s): A41.9 - Sepsis, unspecified organism; R65.20 - Severe sepsis without septic shock; G93.41 - Metabolic encephalopathy (2) Acute renal failure: Status: Acute Qualifiers: Acute renal failure type: unspecified Qualified Code(s): N17.9 - Acute kidney failure, unspecified Category: Medical Code(s): N17.9 - Acute kidney failure, unspecified (3) Multi-organ system dysfunction: Status: Acute Category: Medical (4) Aspiration pneumonia: Status: Acute Qualifiers: Aspiration pneumonia type: unspecified Laterality: right Lung location: lower lobe of lung Qualified Code(s): J69.0 - Pneumonitis due to inhalation of food and vomit Category: Medical Code(s): J69.0 - Pneumonitis due to inhalation of food and vomit (5) Atrial fibrillation with rapid ventricular response: Status: Acute Category: Medical Code(s): I48.91 - Unspecified atrial fibrillation (6) Hypertension: Status: Acute Qualifiers: Hypertension type: essential hypertension Qualified Code(s): I10 - Essential (primary) hypertension Category: Medical Code(s): I10 - Essential (primary) hypertension (7) Hyperlipidemia: Status: Chronic Qualifiers: Hyperlipidemia type: unspecified Qualified Code(s): E78.5 - Hyperlipidemia, unspecified Category: Medical Code(s): E78.5 - Hyperlipidemia, unspecified (8) COPD (chronic obstructive pulmonary disease): Status: Acute Qualifiers: COPD type: unspecified COPD Qualified Code(s): J44.9 - Chronic obstructive pulmonary disease, unspecified Category: Medical Code(s): J44.9 - Chronic obstructive pulmonary disease, unspecified (9) Dementia: Status: Acute Qualifiers: Dementia type: unspecified type Dementia severity: unspecified severity Dementia behavioral or psychological symptom: unspecified whether behavioral, psychotic, or mood disturbance or anxiety Qualified Code(s): F03.90 - Unspecified dementia, unspecified severity, without behavioral disturbance, psychotic disturbance, mood disturbance, and anxiety Category: Medical Code(s): F03.90 - Unspecified dementia, unspecified severity, without behavioral disturbance, psychotic disturbance, mood disturbance, and anxiety Plan 87yo frail gentleman shelter resident with PMHx of extensive comorbidities, included but not limited to being 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 Patient presented on this admission for evaluation of altered mental status. Arrived hypotensive with tachycardia, respiratory rate of 13 temp 98.5 satting at 96% on 3 L by nasal cannula and does have coarse breath sounds. underwent sepsis protocols, including crystalloid boluses. Initial investigation included uremia with a BUN of 123 acute renal failure creatinine of 6.4 and a GFR of 8 hypernatremia normal white count with no shift venous blood gas with a pH of 7.41 and a lactate of 2.4. patient presented with high mortality risk, with multiorgan failure, acute metabolic encepahloapthy and toxic uremia due to acute renal failure. Continuing hospice care. Obtunded this morning. No p.o. intake in over 24 hours, showing instability and vitals with tachycardia and fever today. Still on room air. is imminent. Patient is actively dying. Problems addressed as follows: Sepsis with acute metabolic encephalopathy: Acute renal failure with uremia, multiorgan system failure Pneumonia on the right lower lobe. Suspected aspiration Atrial fibrillation with RVR: Continue morphine 2 mg IV every 4 hours as needed for pain. 2 doses of morphine in the past 24 hours Continue Ativan 0.5 mg every 4 hours as needed for agitation. 2 doses of Ativan in the past 24 hours Glycopyrrolate 0.2 mg every 6 hours as needed for secretions. DNR/DNI Hospice/comfort care.
[2023-11-06 20:00] VITALS: BP 127/62; PULSE 63; RESP 24; TEMP 37.4; O2SAT 93
[2023-11-07 04:00] VITALS: BMI 16.5
--- NOTE | 2023-11-07 04:21 | PC.NURSE ---
PATIENT RESTING QUIETLY IN BED. HOB ELEVATED 35 DEGREES. TURNED AND REPOSITIONED Q 2 HRS WITH ORAL CARE PROVIDED. REMAINS NPO DUE TO UNRESPONSIVE CONDITION. LOW GRADE TEMP 99.3. RESPS 24/MIN. HR 63. FINE CRACKLES NOTED AT BASES. NO RESP DISTRESS NOTED. 02 SAT 93 % ON ROOM AIR.
[2023-11-07 08:00] VITALS: BP 101/64; PULSE 72; RESP 18; TEMP 38; O2SAT 91
[2023-11-07] MEDS: MORPHINE 2MG/ML SYRINGE 2 MG IV ×2 (09:09→14:53)
[2023-11-07] MEDS: ACETAMINOPHEN 650MG SUPPOSITORY 650 MG RC (09:21)
--- NOTE | 2023-11-07 16:01 | EXP.ACUTE.PN ---
Subjective *Date: 11/07/23 *Time: 16:01 Interval history: Patient appears comfortable. No acute distress. Continuing morphine and Ativan as needed. No p.o. intake or urine output in over 24 hours Medical Exam Vital signs and Labs for Last 24 Hours: Vital Signs Temp Pulse Resp BP Pulse Ox O2 Del Method 11/07/23 14:55 Room Air 11/07/23 13:00 Room Air 11/07/23 11:00 Room Air 11/07/23 09:00 Room Air 11/07/23 08:00 Room Air 11/07/23 08:00 100.4 F H 72 18 101/64 L 91 L 11/07/23 06:28 Room Air 11/07/23 05:00 Room Air 11/07/23 03:00 Room Air 11/07/23 01:00 Room Air 11/06/23 23:00 Room Air 11/06/23 21:00 Room Air 11/06/23 20:00 24 Room Air 11/06/23 20:00 99.3 F 63 24 127/62 93 L Room Air 11/06/23 18:29 Room Air 11/06/23 16:44 Room Air Intake and Output 11/07/23 11/07/23 11/07/23 07:59 15:59 23:59 Intake Total 0 / 0 Balance 0 / 0 Intake: Intake, Oral Amount 0 / 0 Other: Number of Unmeasured Voids 1 Weight 50.485 kg Patient Weight 11/07/23 23:59 Weight 50.485 kg I & O for Labs for Last 24 Hours: Intake & Output 11/04/23 11/05/23 11/06/23 11/07/23 23:59 23:59 23:59 23:59 Intake Total 0 / 0 0 / 0 0 / 0 Output Total 0 / 0 0 / 0 0 / 0 Balance 0 / 0 0 / 0 0 / 0 0 / 0 Weight 51.8 kg 51.211 kg 50.485 kg 50.485 kg Microbiology Reports for the Last 24 Hours: Microbiology 11/02/23 18:52 Blood Blood Culture - Preliminary NO GROWTH AFTER 4 DAYS 11/02/23 18:52 Blood Blood Culture - Preliminary NO GROWTH AFTER 4 DAYS Constitutional: Present cachectic, chronically ill appearing and obtunded Respiratory: Present rhonchi and crackles (Right lung field) Comment:: Tachypnea Cardiac: Present Regular Rhythm and Tachycardia Neuro: Absent alert, awake or oriented x 3 Assessment and Plan *Assessment and plan (1) Sepsis with metabolic encephalopathy: Status: Acute Category: Medical Code(s): A41.9 - Sepsis, unspecified organism; R65.20 - Severe sepsis without septic shock; G93.41 - Metabolic encephalopathy (2) Acute renal failure: Status: Acute Qualifiers: Acute renal failure type: unspecified Qualified Code(s): N17.9 - Acute kidney failure, unspecified Category: Medical Code(s): N17.9 - Acute kidney failure, unspecified (3) Multi-organ system dysfunction: Status: Acute Category: Medical (4) Aspiration pneumonia: Status: Acute Qualifiers: Aspiration pneumonia type: unspecified Laterality: right Lung location: lower lobe of lung Qualified Code(s): J69.0 - Pneumonitis due to inhalation of food and vomit Category: Medical Code(s): J69.0 - Pneumonitis due to inhalation of food and vomit (5) Atrial fibrillation with rapid ventricular response: Status: Acute Category: Medical Code(s): I48.91 - Unspecified atrial fibrillation (6) Hypertension: Status: Acute Qualifiers: Hypertension type: essential hypertension Qualified Code(s): I10 - Essential (primary) hypertension Category: Medical Code(s): I10 - Essential (primary) hypertension (7) Hyperlipidemia: Status: Chronic Qualifiers: Hyperlipidemia type: unspecified Qualified Code(s): E78.5 - Hyperlipidemia, unspecified Category: Medical Code(s): E78.5 - Hyperlipidemia, unspecified (8) COPD (chronic obstructive pulmonary disease): Status: Acute Qualifiers: COPD type: unspecified COPD Qualified Code(s): J44.9 - Chronic obstructive pulmonary disease, unspecified Category: Medical Code(s): J44.9 - Chronic obstructive pulmonary disease, unspecified (9) Dementia: Status: Acute Qualifiers: Dementia type: unspecified type Dementia severity: unspecified severity Dementia behavioral or psychological symptom: unspecified whether behavioral, psychotic, or mood disturbance or anxiety Qualified Code(s): F03.90 - Unspecified dementia, unspecified severity, without behavioral disturbance, psychotic disturbance, mood disturbance, and anxiety Category: Medical Code(s): F03.90 - Unspecified dementia, unspecified severity, without behavioral disturbance, psychotic disturbance, mood disturbance, and anxiety Plan 87yo frail gentleman custodial resident with PMHx of extensive comorbidities, included but not limited to being 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 Patient presented on this admission for evaluation of altered mental status. Arrived hypotensive with tachycardia, respiratory rate of 13 temp 98.5 satting at 96% on 3 L by nasal cannula and does have coarse breath sounds. underwent sepsis protocols, including crystalloid boluses. Initial investigation included uremia with a BUN of 123 acute renal failure creatinine of 6.4 and a GFR of 8 hypernatremia normal white count with no shift venous blood gas with a pH of 7.41 and a lactate of 2.4. patient presented with high mortality risk, with multiorgan failure, acute metabolic encepahloapthy and toxic uremia due to acute renal failure. Continuing hospice care. Obtunded this morning. No p.o. intake in over 24 hours, showing instability and vitals with tachycardia and fever today. Still on room air. is imminent. Patient is actively dying. Problems addressed as follows: Sepsis with acute metabolic encephalopathy: Acute renal failure with uremia, multiorgan system failure Pneumonia on the right lower lobe. Suspected aspiration Atrial fibrillation with RVR: Continue morphine 2 mg IV every 4 hours as needed for pain. 2 doses of morphine in the past 24 hours Continue Ativan 0.5 mg every 4 hours as needed for agitation. 1 doses of Ativan in the past 24 hours Glycopyrrolate 0.2 mg every 6 hours as needed for secretions. Tylenol suppository 650 mg as needed every 6 hours for fever. Received dose this morning. Fever to 100.4. DNR/DNI Hospice/comfort care.
--- NOTE | 2023-11-07 18:47 | PC.NURSE ---
no changes from previous shift, mottling to the right leg. RR have been 20 most of shift. morphine admin x2. family has been at bs earlier today
[2023-11-07 20:00] VITALS: BP 88/51; PULSE 83; RESP 20; RESP 21; TEMP 36.9; O2SAT 90
--- NOTE | 2023-11-08 02:56 | PC.NURSE ---
Notified House at this time of patient status, no heart sounds, no breathing, no pulse noted. Hospitalist at the bedside @ this time to pronounce.
--- NOTE | 2023-11-08 03:02 | PC.NURSE ---
Addendum entered by Delfina Benoit RN 11/08/23 03:17: Attempt to call , Delia, no answer. Original Note: Contacted PTK, Son Simon, about status change in patient. Stated he would call his mother and call us back.
--- NOTE | 2023-11-08 03:05 | PC.NURSE ---
Daughter, called, notified of change in status.
--- NOTE | 2023-11-08 03:07 | P.DN_ITS ---
Documented by User: Nae Magana, HARBOR ENGINEER 11/08/23 03:49 Discharge Sum: Prov Provider Primary care physician: Owen Miles MD Visit Care Team Role Provider Type Owen Miles MD Primary Care Provider Staff Physician Kelsie Cadena MD Emergency Provider ER Physician German Escudero MD Admit Provider Staff Physician Attending Provider Admitting clinician: Gautam Renteria Attending physician on admission: German Escudero Consults: 11/03/23 04:46 Consult to Case Management [CONS] Routine Reason For Consult: discharge plan animal care assistant Consult to Hospice [CONS] Routine Comment: comfort care Consulting Provider: Pronouncing clinician: Nae Magana Discharge Sum: Diag PCOD Cause of : Sepsis Contributing Factors (1) Sepsis with metabolic encephalopathy: (2) Acute renal failure: (3) Multi-organ system dysfunction: (4) Aspiration pneumonia: (5) Atrial fibrillation with rapid ventricular response: (6) Hypertension: (7) Hyperlipidemia: (8) COPD (chronic obstructive pulmonary disease): (9) Dementia: Discharge Sum: Summary Date and Time Date of admission: 11/02/23 19:40 Date of : 11/08/23 Time of : 02:50 Hospital Course prior to Hospital Course Information: Salvatore Vizcaino is an 87-year-old male who [facility] with [facility] with septic shock likely secondary to aspiration pneumonia and along with acute renal failure. Patient was given a crystalloid bolus and was started on broad-spectrum antibiotics. Despite ongoing medical management, patient continued to decompensate with worsening renal function and worsening mental status. Case was discussed at length with family who did not want any aggressive resuscitative measures taken. Hospice was decided upon and patient was transition to comfort care measures. Summary Details: Patient was pronounced, TOD at 0250. home is to be Dusty's home. Daughter was called and notifed that the patient is . No pateint belongings were at bedside. Additional Data Confirmation of as documented by pronouncing clinician: no pulse, no respirations, no heart sounds and pupils fixed and dilated Attending/PCP notified?: Yes Attending physician: German Escudero MD Was code activated?: No Autopsy requested?: No facility examiner notified?: No Organ bank notified?: Yes Advance directives: Yes Hospice patient?: Yes Documented by User: German Escudero MD 11/08/23 07:38 Discharge Sum: Prov Provider Admitting clinician: German Escudero Discharge Sum: Diag Contributing Factors (1) Sepsis with metabolic encephalopathy: (2) Acute renal failure: (3) Multi-organ system dysfunction: (4) Aspiration pneumonia: (5) Atrial fibrillation with rapid ventricular response: (6) Hypertension: (7) Hyperlipidemia: (8) COPD (chronic obstructive pulmonary disease): (9) Dementia: Discharge Sum: Summary Additional Data Family: contacted
--- NOTE | 2023-11-08 03:08 | PC.NURSE ---
Addendum entered by Delfina Benoit RN 11/08/23 03:15: Elaine returned call at this time to confirm. Original Note: bomb squad officer hospice, spoke with Brigette, validation software facilitator nurse Elaine will return call in 15 minutes.
--- NOTE | 2023-11-08 03:37 | PC.NURSE ---
Contacted [facility] at around 03:30 and talked to Lizzeth East. Patient was ruled out due to age.
--- NOTE | 2023-11-08 04:03 | PC.NURSE ---
Contacted [facility] and spoke to Hernandez. EVA is being contacted by her and will call back with an estimated arrival time to crab picker the patient.
--- NOTE | 2023-11-08 04:36 | PC.NURSE ---
Post mortem care done by Nasra PAYNE, Lori PAYNE, Shin DUEÑAS, and Felisa RN @ [phone].
--- NOTE | 2023-11-08 04:36 | PC.NURSE ---
[facility] personnel arrived at 0425. Family speaking with home.
--- NOTE | 2023-11-08 04:40 | PC.NURSE ---
No patient belongings noted in room, family went home at this time.
== END 2023-11-08 04:44 | disposition expired | DRG 177 ==
LOC: ER 18:48 → 2ND 19:43
PROVIDERS: Physician Assistant; Admitting Provider Internal Medicine Adolescent Medicine; Emergency Provider Student in an Organized Health Care Education/Training Program; PCP Family Medicine; Visit Provider Internal Medicine Adolescent Medicine
DX: J69.0 Pneumonitis due to inhalation of food and vomit (principal); G93.41 Metabolic encephalopathy; R65.21 Severe sepsis with septic shock; N17.9 Acute kidney failure, unspecified; R64 Cachexia; Z68.1 Body mass index [BMI] 19.9 or less, adult; I48.91 Unspecified atrial fibrillation; I10 Essential (primary) hypertension; E78.5 Hyperlipidemia, unspecified; J44.9 Chronic obstructive pulmonary disease, unspecified; Z79.899 Other long term (current) drug therapy; Z99.3 Dependence on wheelchair; E55.9 Vitamin D deficiency, unspecified; Z87.891 Personal history of nicotine dependence; Z66 Do not resuscitate; I69.30 Unspecified sequelae of cerebral infarction
CPT/HCPCS: 36415; 70450; 71250; 80048; 80053; 81001; 82803; 83605; 83735; 84145; 85025; 87040; 87086; 87581; 87632; 87635; 87798; 93005; 99291; J0131; J2060; J2270; J2543; J7120